=== PATIENT | male | born 1975 | race Caucasian/White ===

== ENCOUNTER 2020-01-01 14:06 | Outpatient (CLI) | payer OTHER, SELFPAY ==
--- NOTE | ~2020-01-01 | US_ITS ---
EXAMINATION: US thyroid DATE: 01/01/2020 14:31 INDICATION: Hypothyroidism TECHNIQUE: Multiple ultrasound images of the thyroid were obtained. COMPARISON: None. FINDINGS: The right thyroid lobe measures 5.1 x 2.7 x 1.5 cm. The left thyroid lobe measures 5.3 x 1.8 x 1.5 c m. No discrete nodules identified. There is normal echotexture, echogenicity and vascular flow throu ghout the thyroid gland. IMPRESSION: 1. Normal thyroid ultrasound. Reviewed, dictated and finalized at location A.
== END 2020-01-01 14:07 | disposition home or self-care (01) ==
PROVIDERS: PCP Family Medicine; Visit Provider Family Medicine
DX: E03.9 Hypothyroidism, unspecified (principal)
CPT/HCPCS: 76536

== ENCOUNTER 2020-01-05 00:39 | Outpatient (CLI) | payer OTHER, SELFPAY ==
[2020-01-05 19:30] LABS: SARS-CoV-2 RNA PCR Negative
== END 2020-01-05 00:40 | disposition home or self-care (01) ==
LOC: ANHCOVIDDT 00:39
PROVIDERS: PCP Family Medicine; Visit Provider Internal Medicine Gastroenterology
DX: Z01.812 Encounter for preprocedural laboratory examination (principal); Z20.828 Contact with and (suspected) exposure to other viral communicable diseases
CPT/HCPCS: 87635; C9803; U0003

== ENCOUNTER 2020-01-08 00:55 | Day surgery (SDC) | payer OTHER, SELFPAY ==
[2020-01-01 14:48] VITALS: BMI 29.0
[2020-01-08 08:43] VITALS: BP 119/70; PULSE 81; RESP 18; TEMP 36.7; O2SAT 99
[2020-01-08] MEDS: LACTATED RINGERS 1,000 ML 150 ML IV CONT (08:45)
--- NOTE | 2020-01-08 08:55 | WPDANESEPPF ---
Anes - Initial Pre Proc Eval Procedure: Operation Date: 01/08/20 09:45 Proposed Procedures p Esophagogastroduodenoscopy - Kali Gutierrez MD Date/Time: 01/08/20 08:55 Surgeon: Kali Gutierrez MD Pre Op Diagnosis: Dysphagia Patient Data Age: 44 Gender: M Height: 5 ft 10 in Weight: 91.7 kg Last Vital Signs Temp 98.1 F 01/08/20 08:43 Pulse 81 01/08/20 08:43 Resp 18 01/08/20 08:43 BP 119/70 01/08/20 08:43 Pulse Ox 99 01/08/20 08:43 Allergies Allergy/AdvReac Type Severity Reaction Status Date / Time morphine Allergy Severe Palpitation Verified 01/08/20 08:42 s codeine AdvReac Intermediate SEVERE Verified 01/08/20 08:42 NAUSEA AND VOMITING Home Medications Medication Instructions Recorded Confirmed Type fluticasone propionate 50 1 spray NASAL DAILY 06/04/19 01/01/20 History mcg/actuation nasal spray,suspension albuterol sulfate 90 mcg/actuation 1 inhalation INHALATION Q4H PRN 06/22/19 01/01/20 Rx aerosol inhaler #18 gm hydrochlorothiazide 25 mg tablet 25 mg PO DAILY #30 tablet 11/01/19 01/01/20 Rx lisinopril 20 mg tablet 20 mg PO DAILY #30 tablet 11/01/19 01/01/20 Rx metoprolol succinate 25 mg 25 mg PO DAILY #30 tablet 11/01/19 01/01/20 Rx tablet,extended release 24 hr nabumetone 500 mg tablet 500 mg PO DAILY 11/02/19 01/01/20 History testosterone cypionate 200 mg/mL 200 mg IM . every 2 weeks #1 ml 11/02/19 01/01/20 Rx intramuscular oil thyroid (pork) 15 mg tablet 15 mg PO DAILY #90 tablet 11/23/19 01/01/20 Rx diazepam 5 mg tablet 5 mg PO BID PRN #60 tablet 12/17/19 01/01/20 Rx nortriptyline 10 mg capsule 10 mg PO TID #90 cap 12/17/19 01/01/20 Rx tadalafil 20 mg tablet 20 mg PO DAILY PRN #30 tablet 12/17/19 01/01/20 Rx sertraline 100 mg PO BID 01/01/20 01/01/20 History Patient hx anesthesia problems: none Family hx anesthesia problems: none PMFSH Past Medical History Medical History (Updated 12/03/19 @ 12:04 by Kali Gutierrez MD) Allergies Anxiety Asthma Cervical vertebral fusion Depression Headache, migraine History of anal fissures Hypertension Surgical History Surgical History History of lumbar fusion Social History Social History Smoking status: Never smoker Second hand tobacco smoke exposure: No Alcohol intake: current Anes - Eval Final PreProcedure Day of Procedure 01/08/20 08:55 Patient weight: overweight Heart: regular rate and rhythm Lungs: clear to auscultation Airway: Mallampati scale class II Neurological: alert and oriented Last oral intake: >/= 8 hours ASA classification: II Emergent: no Anesthetic plan: proceed Anesthesia type and monitoring: general GIVS and standard monitoring Informed Consent: The patient's anesthetic plan and its attendant risks and benefits were discussed with the patient/family/POA. Questions were solicited and answers provided to the satisfaction of the patient/family/POA.
--- NOTE | 2020-01-08 09:34 | PM.HPGS ---
History of Present Illness History of Present Illness Consent: Risks, benefits, and alternatives have been discussed and questions answered. Patient agrees to proceed with procedure. Chief complaint: Dysphagia Narrative: Evelio Mario is a 44 year old male with gerd and dysphagia, he is not longer using ppi Review of Systems Constitutional: Constitutional: Denies headache(s) and Denies weakness Eyes: Eyes: Denies blurry vision ENT: Reports Normal hearing present, Denies headache(s) and Denies neck pain Cardiovascular: Cardiovascular: Denies chest pain and Denies dyspnea Respiratory: Respiratory: Denies dyspnea Gastrointestinal: Gastrointestinal: Reports no additional gastrointestinal complaints Genitourinary: Genitourinary: Denies dysuria Musculoskeletal: Musculoskeletal: Denies neck pain Integumentary/Breasts: Skin/Breast: Denies dry skin Neurologic: Reports Normal hearing present, Denies headache(s) and Denies weakness Psychiatric: Psychiatric: Denies anxiety Endocrine: Endocrine: Denies change in body appearance Hematologic/Lymphatic: Hematologic/Lymphatic: Denies easy bleeding Allergic/Immunologic: Allergic/Immunologic: Denies urticaria PMFSH Past Medical History Medical History (Updated 01/08/20 @ 09:35 by Kali Gutierrez MD) Allergies Anxiety Asthma Cervical vertebral fusion Depression Dysphagia GERD (gastroesophageal reflux disease) Headache, migraine History of anal fissures Hypertension Surgical History Surgical History History of lumbar fusion Social History Social History Smoking status: Never smoker Second hand tobacco smoke exposure: No Alcohol intake: current Meds Home Medications and Allergies Home Medications Medication Instructions Recorded Confirmed Type fluticasone propionate 50 1 spray NASAL DAILY 06/04/19 01/01/20 History mcg/actuation nasal spray,suspension albuterol sulfate 90 mcg/actuation 1 inhalation INHALATION Q4H PRN 06/22/19 01/01/20 Rx aerosol inhaler #18 gm hydrochlorothiazide 25 mg tablet 25 mg PO DAILY #30 tablet 11/01/19 01/01/20 Rx lisinopril 20 mg tablet 20 mg PO DAILY #30 tablet 11/01/19 01/01/20 Rx metoprolol succinate 25 mg 25 mg PO DAILY #30 tablet 11/01/19 01/01/20 Rx tablet,extended release 24 hr nabumetone 500 mg tablet 500 mg PO DAILY 11/02/19 01/01/20 History testosterone cypionate 200 mg/mL 200 mg IM . every 2 weeks #1 ml 11/02/19 01/01/20 Rx intramuscular oil thyroid (pork) 15 mg tablet 15 mg PO DAILY #90 tablet 11/23/19 01/01/20 Rx diazepam 5 mg tablet 5 mg PO BID PRN #60 tablet 12/17/19 01/01/20 Rx nortriptyline 10 mg capsule 10 mg PO TID #90 cap 12/17/19 01/01/20 Rx tadalafil 20 mg tablet 20 mg PO DAILY PRN #30 tablet 12/17/19 01/01/20 Rx sertraline 100 mg PO BID 01/01/20 01/01/20 History Allergies Allergy/AdvReac Type Severity Reaction Status Date / Time morphine Allergy Severe Palpitation Verified 01/08/20 08:42 s codeine AdvReac Intermediate SEVERE Verified 01/08/20 08:42 NAUSEA AND VOMITING Vital Signs Vital Signs - 24 hr 01/08/20 08:43 Temperature 98.1 F Pulse Rate 81 Respiratory Rate 18 Blood Pressure 119/70 Pulse Oximetry 99 Exam Const: General: comfortable and no acute distress HENMT: General nose exam: Normal nares present Eyes: General: appearance normal, both eyes and all related structures Neck: Neck: no JVD Resp: Auscultation: clear to auscultation bilaterally Cardio: Rate: regular rate Rhythm: regular rhythm GI: Inspection: non-distended GI Palp: Yes Soft to palpation Skin: General skin exam: normal color Neuro: General: gait normal Speech: normal speech Extrem: General: normal to inspection Psych: Mental Status: mental status grossly normal Assessment and Plan Assessment and plan (1) GERD (gastroesophageal re
[2020-01-08 09:47] VITALS: BP 101/55; PULSE 73; RESP 18; O2SAT 97
[2020-01-08 09:57] VITALS: BP 106/63; PULSE 71; RESP 18; O2SAT 97
[2020-01-08 10:07] VITALS: BP 108/74; PULSE 67; RESP 18; O2SAT 98
== END 2020-01-08 10:17 | disposition home or self-care (01) ==
PROVIDERS: PCP Family Medicine; Visit Provider Internal Medicine Gastroenterology
PROC: 0DJ08ZZ Inspection of Upper Intestinal Tract, Via Natural or Artificial Opening Endoscopic (ICD-10-PCS; CPT 43235; principal; 2020-01-08 09:45)
DX: K21.0 Gastro-esophageal reflux disease with esophagitis (principal); K29.70 Gastritis, unspecified, without bleeding; F41.9 Anxiety disorder, unspecified; J45.909 Unspecified asthma, uncomplicated; I10 Essential (primary) hypertension; F32.9 Major depressive disorder, single episode, unspecified
CPT/HCPCS: 43239; 87081; 88305; J2704; J7120

== ENCOUNTER 2020-01-29 00:27 | Outpatient (CLI) | payer OTHER, SELFPAY ==
[2020-01-29 17:26] LABS: SARS-CoV-2 RNA PCR Negative
== END 2020-01-29 00:28 | disposition home or self-care (01) ==
LOC: ANHCOVIDDT 00:27
PROVIDERS: PCP Family Medicine
DX: Z01.818 Encounter for other preprocedural examination (principal); Z11.59 Encounter for screening for other viral diseases
CPT/HCPCS: 87635; C9803; U0003

== ENCOUNTER 2020-02-01 09:12 | Outpatient (CLI) | payer OTHER, SELFPAY ==
[2020-01-25 14:57] VITALS: BMI 28.7
[2020-02-01] VITALS (7 sets, daily range): BP systolic 101–129; BP diastolic 53–79; PULSE 58–66; RESP 12–19; O2SAT 96–100
--- NOTE | ~2020-02-01 | CT_ITS ---
EXAMINATION: CT lumbar spine w con EXAM DATE: 02/01/2020 11:45 INDICATION: Lumbar radiculopathy. Lumbar surgery. TECHNIQUE: Spiral CT of the lumbar spine was performed following intrathecal injection of 10 mL Omnip aque 300 solution. Axial, coronal and sagittal images were reviewed. The dose-length product (DLP) for this examination was 1244.20 mGy-cm. The exposure was tailored according to patient size (auto mA exposure control), and iterative reconstruction (ASIR) was used as additional dose reduction techn ique. Comparison is made to prior examination from 09/03/2015. FINDINGS: Small contrast from the L5-S1 injection site is subdural in location. Adequate intrathecal opacification given that contrast was distributed for both cervical and lumbar myelogram. Posterior a nd interbody fusion L3-S1, L5 laminectomies, L4 and L3 laminotomies. There is 3 to 4 mm retrolisthesi s L2 on L3 with mild to moderate loss of the disc height at this level. There are no acute fractures identified. Paraspinal soft tissue is unremarkable. Level by level evaluation: T12-L1: Disc does not extend beyond the endplate margin. Facet arthropathy: Mild. Neural foraminal stenosis: No stenosis. Central canal stenosis: No stenosis. L1-L2: There is a mild diffuse disc bulge. Facet arthropathy: Mild to moderate right, mild left. Neural foraminal stenosis: Mild bilateral. Central canal stenosis: Mild. L2-L3: There is a moderate diffuse disc bulge. Facet arthropathy: Severe. Neural foraminal stenosis: Mild to moderate bilateral. Central canal stenosis: Moderate, nerve root crowding. L3-L4: This level is fused. Facet arthropathy: Fused. Neural foraminal stenosis: No stenosis. Central canal stenosis: No stenosis. L4-L5: This level is fused. Facet arthropathy: None. Neural foraminal stenosis: No stenosis. Central canal stenosis: No stenosis. L5-S1: This level is fused. Facet arthropathy: Mild right. Neural foraminal stenosis: No stenosis. Central canal stenosis: No stenosis. IMPRESSION: 1. L3-4 grade 1 retrolisthesis and moderate central canal stenosis. 2. Surgical changes L3-S1. Reviewed, dictated and finalized at location A.
--- NOTE | ~2020-02-01 | XR_ITS ---
EXAMINATION: XR_MY2+_CR EXAM DATE: 02/01/2020 11:59 INDICATION: Cervical radiculopathy. Lumbar radiculopathy. TECHNIQUE: Informed consent was obtained from the patient for doing this procedure. I discussed mack efits and risks including bleeding, infection, backache, headache and seizure. Alternatives also disc ussed. The DAP for this procedure was 1.6 Gycm2. Time out procedure was performed. Preflight Inspector radiograph was obtained. An entry site was chosen at the L5 -S1 level. A right paracentral approach was used. Standard sterile prep was done with Betadine. En try site was infiltrated with 3 cc 1% lidocaine. A 3.5 22G spinal needle was then inserted into the spinal canal. 10 mL of Omnipaque 300 solution were then injected into the thecal sac. Limited images of cervical and lumbar spine were obtained on fluoroscopy unit. The patient was then t ransferred to CT scan for spiral CT of the lumbar spine. Following this, patient was placed in post operative area for 2 hours observation prior to being discharged. There were no immediate complicatio ns. About half an hour after the procedure patient did complain of severe headache. Reportedly also h as history of severe headaches. FINDINGS: There are 12 thoracic rib-bearing vertebral bodies. There is no myelographic block. Cervical spine: Contrast confirmed to reach this region. Demonstrates intact fusion with anterior ivet te C3-5. Lumbar spine: demonstrates posterior pedicular screws L3-S1 without hardware fracture. Also interbody device markers at these levels. On the lateral projection there is moderate central canal stenosis a t the L2-3 level with nerve root crowding, and 3-4 mm of retrolisthesis. IMPRESSION: 1. Intrathecal contrast confirmed for subsequent CT. 2. Moderate central canal stenosis L3-4 without myelographic block. 3. Cervical and lumbar fusion hardware. Reviewed, dictated and finalized at location A.
--- NOTE | ~2020-02-01 | CT_ITS ---
EXAMINATION: CT cervical spine w con EXAM DATE: 02/01/2020 11:45 INDICATION: Cervical radiculopathy. TECHNIQUE: Spiral CT of the cervical spine was performed following intrathecal injection of 10 mL int rathecal Omnipaque 300 solution. Axial images were reviewed. Coronal and sagittal reformatted image s were also reviewed. The dose-length product (DLP) for this examination was 475.15 mGy-cm. The expo sure was tailored according to patient size (auto mA exposure control), and iterative reconstruction (ASIR) was used as additional dose reduction technique. Correlation is made to cervical spine MRI exa mination 06/08/2013. FINDINGS: Adequately opacified cervical spinal canal. Osseous interbody fusion C3-6. There is anterio r fusion plate and supporting screws C3-5. Solid bone bridging and no evidence of hardware fracture. There is moderate disc disease C6-7. The vertebral bodies are aligned in the AP dimension. There are no acute fractures identified. Cervicomedullary junction is normal in appearance. Level by level evaluation: C2-C3: Disc does not extend beyond the endplate margin. Uncovertebral joint arthropathy: Minimal right. Facet joint arthropathy: Minimal bilateral. Neural foraminal stenosis: No stenosis. Central canal stenosis: No stenosis. C3-C4: This level is fused. Uncovertebral joint arthropathy: Mild to moderate right, mild left. Facet joint arthropathy: Mild bilateral. Neural foraminal stenosis: Mild right. Central canal stenosis: No stenosis. C4-C5: This level is fused. Uncovertebral joint arthropathy: Mild to moderate bilateral. Facet joint arthropathy: Mild to moderate bilateral. Neural foraminal stenosis: Mild right. Central canal stenosis: No stenosis. C5-C6: This level is fused. Uncovertebral joint arthropathy: Mild left. Facet joint arthropathy: Mild bilateral. Neural foraminal stenosis: No stenosis. Central canal stenosis: No stenosis. C6-C7: There is a mild diffuse disc bulge. Uncovertebral joint arthropathy: Moderate to severe right, mild to moderate left. Facet joint arthropathy: Moderate bilateral. Neural foraminal stenosis: Moderate right, mild left. Central canal stenosis: No stenosis. C7-T1: Disc does not extend beyond the endplate margin. Uncovertebral joint arthropathy: Mild left. Facet joint arthropathy: Moderate left, mild right. Neural foraminal stenosis: No stenosis. Central canal stenosis: No stenosis. IMPRESSION: 1. Intact fusion C3-6. 2. C6-7 moderate right neural foraminal stenosis, the most narrowed level. 3. Lesser spondylosis detailed above. Reviewed, dictated and finalized at location A.
[2020-02-01] MEDS: ACETAMINOPHEN 500 MG TABLET 1000 MG PO (12:48)
--- NOTE | 2020-02-01 14:45 | SUR.PHASEII ---
1145 pt complains severe headache. given ice bag for forehead, called dr taylor about headache. [address] taylor about continued headache, orders received. tylenol given. 1355 dr talyor here and talked to pt ,pt given disc about procedure.
== END 2020-02-01 14:05 | disposition home or self-care (01) ==
PROVIDERS: Radiology Diagnostic Radiology; PCP Family Medicine
DX: M54.16 Radiculopathy, lumbar region (principal); M54.12 Radiculopathy, cervical region; Z98.1 Arthrodesis status
CPT/HCPCS: 62305; 72126; 72132; A9270

== ENCOUNTER 2020-06-02 13:26 | Outpatient (CLI) | payer OTHER, SELFPAY ==
[2020-06-03 18:38] LABS: SARS-CoV-2 RNA PCR Negative
== END 2020-06-02 13:27 | disposition home or self-care (01) ==
PROVIDERS: PCP Family Medicine; Visit Provider Family Medicine
DX: Z01.818 Encounter for other preprocedural examination (principal); Z20.822 Contact with and (suspected) exposure to COVID-19
CPT/HCPCS: C9803; U0003; U0005

== ENCOUNTER 2020-06-03 15:23 | Outpatient (CLI) | payer OTHER, SELFPAY ==
--- NOTE | ~2020-06-03 | XR_ITS ---
EXAMINATION: XR chest 2V DATE: 06/03/2020 15:45 INDICATION: Hypertension. Preop. TECHNIQUE: Frontal and lateral views of the chest were obtained. COMPARISON: Chest 2 views 05/22/2009 FINDINGS: The chest demonstrates clear lungs without pneumonia, pleural effusion, or pneumothorax. Th e heart size is normal. There is an old healed fracture of right fourth rib. IMPRESSION: 1. No acute cardiopulmonary disease. Reviewed, dictated and finalized at location B. [employer]ING [employer]IE[employer]INE[employer]
== END 2020-06-03 15:24 | disposition home or self-care (01) ==
LOC: ANHBWCLAB 15:26 → ANHBWCIMG 15:40
PROVIDERS: PCP Family Medicine; Visit Provider Family Medicine
DX: Z01.818 Encounter for other preprocedural examination (principal)
CPT/HCPCS: 71046

== ENCOUNTER 2020-06-19 00:28 | Emergency (ER) | payer OTHER, SELFPAY ==
[2020-06-19 01:03] VITALS: BP 149/96; PULSE 108; RESP 20; TEMP 37.4; O2SAT 100
--- NOTE | 2020-06-19 01:06 | ED.GENADULT ---
HPI - General Adult General Chief complaint: Extremity Problem,Nontraumatic Stated complaint: Numbness in right hand. Source: patient Mode of arrival: ambulatory Limitations: no limitations History of Present Illness HPI narrative: Evelio is a 44M with a PMH of GERD, hypothyroidism, hypogonadism, and surgeries on his cervical and lumbar spine that presented with weakness in his right hand and paresthesias in it. He had a cervical fusion years ago and has had some numbness in his finger tips bilaterally. However, since his lumbar fusion surgery on 06/05 he has had worsening right hand weakness, pain, cold sensation and it is waking him up with cramping at night. No trauma to the hand. However, since his lumbar surgery he is having to use his hands and wrists a lot more to get up. He has a history of bilateral carpal tunnel many years ago. Related Data Home Medications Medication Instructions Recorded Confirmed fluticasone propionate 50 1 spray NASAL DAILY 06/04/19 06/19/20 mcg/actuation nasal spray,suspension cyanocobalamin (vitamin B-12) 1,000 mcg PO WEEKLY 01/25/20 06/19/20 [Vitamin B-12] sildenafil [Viagra] 100 mg PO DAILY PRN 06/19/20 06/19/20 Allergies Allergy/AdvReac Type Severity Reaction Status Date / Time morphine Allergy Severe Palpitation Verified 06/03/20 14:20 s codeine AdvReac Intermediate SEVERE Verified 06/03/20 14:20 NAUSEA AND VOMITING Review of Systems Constitutional: Constitutional: Denies chills and Denies fever(s) Eyes: Eyes: Reports no additional eye complaints ENT: Reports system reviewed and no additional complaints, except as documented Cardiovascular: Cardiovascular: Reports no additional cardiovascular complaints Respiratory: Respiratory: Reports no additional respiratory complaints Gastrointestinal: Gastrointestinal: Reports no additional gastrointestinal complaints Genitourinary: Genitourinary: Reports no additional male genitourinary complaints Musculoskeletal: Musculoskeletal: Reports as per HPI Integumentary/Breasts: Skin/Breast: Reports system reviewed and no additional complaints, except as docu Neurologic: Reports as per HPI Psychiatric: Psychiatric: Reports no additional psychiatric complaints Endocrine: Endocrine: Reports no additional endocrine complaints Hematologic/Lymphatic: Hematologic/Lymphatic: Reports no additional hematologic/lymphatic complaints Allergic/Immunologic: Allergic/Immunologic: Reports no additional allergic/immunologic complaints [facility] Past Medical History Medical History Allergies Anxiety Asthma Cervical vertebral fusion Depression Dysphagia GERD (gastroesophageal reflux disease) Headache, migraine History of anal fissures Hypertension Surgical History Surgical History History of lumbar fusion Family History Family History Mother Depression Family history of migraine headaches Asthma Family history of chronic obstructive pulmonary disease Grandparent Cerebrovascular accident Grandparent Lung disease Grandparent Dementia Alzheimer disease Grandparent Dementia Other Hypertension Social History Social History Smoking status: Never smoker Second hand tobacco smoke exposure: No Alcohol intake: current Drinks per week: 2 Substance use: never Exam Const: General: no acute distress and alert Orientation/consciousness: patient oriented x3 Limitations: No altered mental status HENMT: Head: normal to inspection Other: atraumatic Eyes: Conjunctivae: conjunctivae normal Pupils: Equal, round and reactive pupils present Neck: Neck: normal visual inspection Chest: Chest palpation & inspection: normal inspection of the chest Resp: Effort & Inspection: nor
[2020-06-19 01:11] VITALS: BP 142/86; PULSE 98; RESP 20; TEMP 37.2; O2SAT 100
== END 2020-06-19 01:17 | disposition home or self-care (01) ==
PROVIDERS: Emergency Provider Family Medicine; PCP Family Medicine
DX: G56.01 Carpal tunnel syndrome, right upper limb (principal)
CPT/HCPCS: 99283

== ENCOUNTER 2020-07-14 11:13 | Outpatient (CLI) | payer OTHER, SELFPAY ==
--- NOTE | ~2020-07-14 | XR_ITS ---
EXAMINATION: XR chest 2V DATE: 07/14/2020 11:22 INDICATION: Shortness of breath. Cough. Neuralgic amyotrophy. TECHNIQUE: Frontal and lateral views of the chest were obtained. COMPARISON: Chest 2 views 06/03/2020 FINDINGS: The chest demonstrates clear lungs without pneumonia, pleural effusion, or pneumothorax. Th e heart size is normal. There are changes of anterior and posterior fusion procedures in lumbar spine . IMPRESSION: 1. No acute cardiopulmonary disease. Reviewed, dictated and finalized at location A. 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
== END 2020-07-14 11:14 | disposition home or self-care (01) ==
LOC: ANHBWCIMG 11:14
PROVIDERS: PCP Family Medicine; Visit Provider Family Medicine
DX: G54.5 Neuralgic amyotrophy (principal); R13.10 Dysphagia, unspecified
CPT/HCPCS: 71046

== ENCOUNTER 2020-10-30 09:27 | Outpatient (CLI) | payer OTHER, SELFPAY ==
--- NOTE | ~2020-10-30 | XR_ITS ---
XR cervical spine 4-5V DATE: 10/30/2020 14:31 INDICATION: Neuralgic amyotrophy TECHNIQUE: AP, open-mouth, lateral views. Flexion and extension lateral views. COMPARISON: 02/01/2020 CT cervical spine FINDINGS: Status post anterior fusion at C3-6. Severe degenerative disc disease at C6-7. There is straightening of cervical spine. There is no instability on flexion or extension. C1 and C2 are normally aligned and the odontoid process is intact. No fracture or dislocation or lock ed facet or prevertebral soft tissue swelling. IMPRESSION: Status post anterior cervical spine surgical fusion at C3-6 Severe degenerative disc disease at C6-7 Reviewed, dictated and finalized at location A.
== END 2020-10-30 09:28 | disposition home or self-care (01) ==
PROVIDERS: PCP Family Medicine
DX: G54.5 Neuralgic amyotrophy (principal); Z98.1 Arthrodesis status
CPT/HCPCS: 72050; 97162

== ENCOUNTER 2020-11-12 12:30 | Outpatient (RCR) | payer OTHER, SELFPAY ==
--- NOTE | 2020-10-30 10:24 | PTOPEVAL ---
PHYSICAL THERAPY EVALUATION AND PLAN OF CARE Thank you for referring Evelio Mario to [facility].? The patient is scheduled to be seen for therapy? 2x/week for 4-8 weeks. Please review, sign, date and return this plan of care LUCIO. I agree with and certify that the following plan of care is medically necessary. Referring Physician Date Attending Provider: Grant Contreras Evaluation Neurological History Hx Migraine Yes Hx Neurologic Surgery Yes: FACIAL NERVE SURGERY Hx Other Neurological Disorders Yes: fell on head 2014 accident now has muscle spasms and shooting pain Cardiovascular History Hx Hypertension Yes Respiratory History Hx Asthma Yes: inhaler Gastrointestinal History Hx Esophageal Disorders Yes: dysphagia Hx Gastroesophageal Reflux Disease Yes: otc as needed Genitourinary History Hx Genitourinary Disorders No Significant History Musculoskeletal History Hx Orthopedic Surgery Yes: REPAIR L SHOULDER LABRUM TEAR Hx Spinal Surgery Yes: cervical fusion x2 with hardware;lumbar fusion x2 with hardware Hx Other Musculoskeletal Disorders Yes: POOR BALANCE Psychosocial History Hx Anxiety Yes Hx Depression Yes Pain History Has Past Pain Affected Your Daily Life Yes: NECK/BACK/HEAD Anesthesia History Hx Anesthesia Reactions No Significant History Other History Hx Implanted Device Yes: cervical and lumbar fusions Diagnosis cervical pain, arm pain Onset 2014 Subjective Information Evelio is here today with c/o Query Text:As Reported By Patient/ cervical pain with arm pain Family and numbness. He also had lumbar fusion surgery of L1-2 in May 2020 and he states that his legs are doing much better. He does have back pain and spasms. He is here to increase core strength and to treat the cervical pain/arm pain. Arm pain: states that he is right handed and the more he uses the arm, the worse it gets. States that he does not sleep longer than an hour or two at a time. He also gets migraines. Self Report Pain Assessment Spine, Cervical Reported Pain Level 4 Pain Description Ac
--- NOTE | 2020-11-05 09:31 | PCPTNOTE ---
Patient called & cancelled scheduled appointment this date due to having a migraine.
--- NOTE | 2020-11-10 09:28 | PCPTNOTE ---
Patient did not show up for scheduled appointment this date. Called and spoke with Pt. He thought his appointment was at 12:30pm due to print out being small and times being close together. Pt apologized for mishap. Reminded Pt of his next appointment on Sunday 11/12 @ 12:30.
--- NOTE | 2020-11-18 10:26 | PCPTNOTE ---
Patient did not show up for scheduled appointment this date. Called and left voicemail reminding Pt of missed appointment and upcoming appointment on , 11/20/2020 @ 10:00am. This is Pt's second N/S.
--- NOTE | 2020-11-20 10:27 | PCPTNOTE ---
Patient did not show up for scheduled appointment this date. Called and left voicemail about missed appointment and reminded Pt of upcoming appointment. This is Pt's third N/S. PT notified.
--- NOTE | 2020-11-24 09:47 | PCPTNOTE ---
Patient called & cancelled scheduled appointment and all future appointments per MD due to running another test and then possibly having surgery, PT notified.
--- NOTE | 2020-11-24 11:47 | PCPTNOTE ---
PHYSICAL THERAPY DISCHARGE NOTE Attending Provider: Grant Contreras Patient:Evelio Mario Date of :1975 Patient called and cancelled remaining appointments per MD instructions. He will be discharged at this time. Thank you for referring this patient to [facility]. Please review, sign, date and return this discharge summary LUCIO. I have been updated about the patient's current status and I agree with discharge from the above service at this time. Referring Physician Date
== END 2021-01-14 12:56 | disposition home or self-care (01) ==
LOC: ANHPT 12:30
PROVIDERS: PCP Family Medicine
DX: M79.602 Pain in left arm (principal); M79.601 Pain in right arm; M54.12 Radiculopathy, cervical region; Z98.890 Other specified postprocedural states
CPT/HCPCS: 97110; 97140; 97162

== ENCOUNTER 2020-12-31 15:14 | Outpatient (CLI) | payer OTHER, SELFPAY ==
--- NOTE | ~2020-12-31 | MR_ITS ---
EXAMINATION: MR cervical spine wo con DATE: 12/31/2020 16:19 INDICATION: Cervical radiculopathy. TECHNIQUE: Magnetic resonance imaging (MRI) of the cervical spine was performed without intravenous c ontrast. Sequences included sagittal T2-weighted FSE, sagittal T2-weighted FS FSE, sagittal T1-weight ed FSE, axial MERGE, and axial T2-weighted FSE. COMPARISON: Cervical spine MRI 06/08/2019 FINDINGS: There is 5 degrees dextrocurvature of cervical spine. There is 2 mm anterolisthesis of C7 o n T1. There are changes of anterior fusion procedure from C3 to C6 with healed interbody bone graft. There is an anterior plate with screws from C3 to C5. There is moderately decreased disc height at C6 -C7 with endplate remodeling. The spinal cord signal intensity is normal. The following disc levels a re specifically discussed: C2-C3: The disc does not extend beyond the endplate margin. There is mild right uncovertebral joint o steoarthritis. There is mild bilateral facet joint osteoarthritis. There is no neural foraminal steno sis. There is no central canal stenosis. C3-C4: There is no uncovertebral joint hypertrophy. There is mild left facet joint osteoarthritis. Th ere is no neural foraminal stenosis. There is no central canal stenosis. C4-C5: There is no uncovertebral joint hypertrophy. There is mild bilateral facet joint osteoarthriti s. There is no neural foraminal stenosis. There is no central canal stenosis. C5-C6: There is no uncovertebral joint osteoarthritis. There is no facet joint osteoarthritis. There is no neural foraminal stenosis. There is no central canal stenosis. C6-C7: The disc is bulging. There is severe right and moderate left uncovertebral joint osteoarthriti s. There is severe bilateral facet joint osteoarthritis. There is moderate right and mild left neural foraminal stenosis. There is mild central canal stenosis. C7-T1: The disc does not extend beyond the endplate margin. There is no uncovertebral joint osteoarth ritis. There is severe bilateral facet joint osteoarthritis. There is mild bilateral neural foraminal stenosis. There is no central canal stenosis. IMPRESSION: 1. Moderate cervical spondylosis, stable from 06/08/2019. 2. Anterior fusion procedure from C3 to C6. Reviewed, dictated and finalized at location B.
--- NOTE | ~2020-12-31 | CT_ITS ---
EXAMINATION: CT lumbar spine wo con DATE: 12/31/2020 15:42 INDICATION: Lumbar radiculopathy. TECHNIQUE: Computed tomography (CT) of the lumbar spine was performed without intravenous contrast. A utomated exposure control and iterative reconstruction technique were employed. The dose-length produ ct was 1062.99 mGy-cm. COMPARISON: Lumbar spine CT 02/01/2020 FINDINGS: There is 3 degrees levocurvature of lumbar spine. There are changes of anterior and posteri or fusion procedures from L2 to S1 with interbody devices and pedicle screws. There is bridging inter body bone from L3 to S1, but not at L2-L3. There are bridging bone in the posterior elements from L3 to S1, but not at L2-L3. There is mildly decreased disc height at T12-L1 and L1-L2. The following dis c levels are specifically discussed: L1-L2: The disc is bulging. There is mild bilateral facet joint osteoarthritis. There is mild bilater al neural foraminal stenosis. There is mild central canal stenosis. L2-L3: There is mild left facet joint hypertrophy. There is mild left neural foraminal stenosis. Ther e is mild right neural foraminal stenosis with posterior decompression from resection of the right fa cet joint. There is mild central canal stenosis with posterior decompression. L3-L4: There is mild bilateral facet joint hypertrophy. There is mild left neural foraminal stenosis. There is no central canal stenosis. L4-L5: There is mild bilateral facet joint hypertrophy. There is mild left neural foraminal stenosis. There is no central canal stenosis. L5-S1: There is moderate bilateral facet joint hypertrophy. There is mild bilateral neural foraminal stenosis. There is mild central canal stenosis with posterior decompression. IMPRESSION: 1. Mild lumbar spondylosis. 2. Anterior and posterior fusion procedures at L2-L3, new from 02/01/2020. 3. Stable changes of anterior and posterior fusion procedures from L3 to S1. Reviewed, dictated and finalized at location B.
== END 2020-12-31 15:15 | disposition home or self-care (01) ==
DX: M54.16 Radiculopathy, lumbar region (principal); M54.12 Radiculopathy, cervical region; Z98.890 Other specified postprocedural states; M47.812 Spondylosis without myelopathy or radiculopathy, cervical region; Z98.1 Arthrodesis status; M47.816 Spondylosis without myelopathy or radiculopathy, lumbar region
CPT/HCPCS: 72131; 72141

== ENCOUNTER 2021-02-02 12:13 | Outpatient (CLI) | payer OTHER, SELFPAY ==
[2021-02-02 20:19] LABS: Free T4 Free Thyroxine 0.66 ng/mL (0.78-2.19); Vitamin D 25 Hydroxy 39.6 ng/mL
[2021-02-06 11:19] LABS: T3 Reverse 11 ng/dL (8-25)
== END 2021-02-02 12:14 | disposition home or self-care (01) ==
LOC: ANHBWCLAB 12:14
PROVIDERS: Family Medicine; PCP Family Medicine; Visit Provider Family Medicine
DX: R79.89 Other specified abnormal findings of blood chemistry (principal); R89.9 Unspecified abnormal finding in specimens from other organs, systems and tissues; E29.1 Testicular hypofunction; E03.9 Hypothyroidism, unspecified; Z51.81 Encounter for therapeutic drug level monitoring; Z79.899 Other long term (current) drug therapy
CPT/HCPCS: 36415; 82306; 84439; 84482

== ENCOUNTER 2021-02-04 08:34 | Outpatient (CLI) | payer OTHER, SELFPAY ==
[2021-02-04 19:33] LABS: Hematocrit 43.2 % (42.0-52.0); Hemoglobin 13.5 g/dL (14.0-18.0); Mean Corpuscular HGB Conc 31.3 g/dl (32-36); Mean Corpuscular Hemoglobin 26.4 pg (26-34); Mean Corpuscular Volume 84.5 fl (80-100); Mean Platelet Volume 10.5 fl (7.4-10.4); Platelet Count Result 199 k/mm3 (150-375); Red Blood Count 5.11 M/mm3 (4.6-6.20); Red Cell Distribution Width 13.9 % (11.5-14.5); White Blood Count 5.8 K/mm3 (4.5-10.0)
[2021-02-04 19:44] LABS: Alanine Aminotransferase 9 U/L (4-50); Albumin Level 4.2 g/dL (3.5-5.1); Alkaline Phosphatase 49 U/L (38-126); Anion Gap 7 mmol/L (8-16); Aspartate Amino Transferase 22 U/L (17-59); Bilirubin,Total 0.4 mg/dL (0.2-1.3); Blood Urea Nitrogen 17 mg/dL (9-20); Carbon Dioxide 26 mmol/L (22-30); Chloride 109 mmol/L (98-107); Estimated Glomerular Filt Rate > 60; Glucose 113 mg/dL (65-110); Potassium 4.5 mmol/L (3.4-5.0); Sodium 142 mmol/L (137-145)
[2021-02-08 18:52] LABS: Testosterone Free 97.2 pg/mL (35.0-155.0); Testosterone Total 450 ng/dL (250-1100)
== END 2021-02-04 08:35 | disposition home or self-care (01) ==
LOC: ANHBWCLAB 08:35
PROVIDERS: PCP Family Medicine; Visit Provider Family Medicine
DX: F32.9 Major depressive disorder, single episode, unspecified (principal); M62.81 Muscle weakness (generalized); E03.9 Hypothyroidism, unspecified; E29.1 Testicular hypofunction; R79.89 Other specified abnormal findings of blood chemistry
CPT/HCPCS: 36415; 80053; 84402; 84403; 84443; 85027; 86038

== ENCOUNTER 2021-03-04 10:16 | Outpatient (CLI) | payer OTHER, SELFPAY ==
--- NOTE | ~2021-03-04 | CT_ITS ---
EXAMINATION: CT cervical spine wo con DATE: 03/04/2021 10:29 INDICATION: Cervical radiculopathy. TECHNIQUE: Computed tomography (CT) of the cervical spine was performed without intravenous contrast. Automated exposure control and iterative reconstruction technique were employed. The dose-length pro duct was 434.94 mGy-cm. COMPARISON: CT cervical spine 02/01/2020, MRI 12/31/2020 FINDINGS: There is 5 degrees dextrocurvature of cervicothoracic spine. There are changes of anterior fusion procedure from C3 through C6 with discectomies and healed interbody bone graft. There is an an terior plate and screws from C3 to C5. Vertebral body heights are normal. There is severely decreased disc height at C6-C7 with endplate remodeling. The following disc levels are specifically discussed: C2-C3: There is mild bilateral uncovertebral joint osteoarthritis. There is mild bilateral facet join t osteoarthritis. There is no neural foraminal stenosis. There is no central canal stenosis. C3-C4: There is mild bilateral uncovertebral joint hypertrophy. There is moderate right and severe le ft facet joint osteoarthritis. There is mild bilateral neural foraminal stenosis. There is no central canal stenosis. C4-C5: There is mild right uncovertebral joint hypertrophy. There is moderate right and mild left fac et joint osteoarthritis. There is mild right neural foraminal stenosis. There is no central canal danielle nosis. C5-C6: There is no uncovertebral joint osteoarthritis. There is no facet joint osteoarthritis. A scre w extends into the left neural foramen. There is mild left neural foraminal stenosis. There is no melissa tral canal stenosis. C6-C7: There is severe bilateral uncovertebral joint osteoarthritis. There is moderate right and daisy re left facet joint osteoarthritis. There is mild bilateral neural foraminal stenosis. There is mild central canal stenosis. C7-T1: There is no uncovertebral joint osteoarthritis. There is severe bilateral facet joint osteoart hritis. There is mild left neural foraminal stenosis. There is no central canal stenosis. IMPRESSION: 1. Severe spondylosis at C6-C7 and mild spondylosis at other levels, stable from 02/01/2020. 2. Anterior fusion procedure from C3 to C6. Reviewed, dictated and finalized at location A. IMPRESSION: 1. Severe spondylosis at C6-C7 and mild spondylosis at other levels, stable fro m 02/01/2020. 2. Anterior fusion procedure from C3 to C6.
== END 2021-03-04 10:17 | disposition home or self-care (01) ==
LOC: ANHIMG 10:17
PROVIDERS: PCP Family Medicine
DX: M47.812 Spondylosis without myelopathy or radiculopathy, cervical region (principal); Z98.1 Arthrodesis status
CPT/HCPCS: 72125

== ENCOUNTER 2021-03-09 09:16 | Outpatient (CLI) | payer OTHER, SELFPAY ==
[2021-03-09 18:34] LABS: Basophils Percent Auto 0.5 % (0.2-1.2); Eosinophils Absolute Auto 0.1 K/mm3 (0-0.3); Eosinophils Percent Auto 1.8 % (0-4.4); Hematocrit 42.9 % (42.0-52.0); Hemoglobin 13.6 g/dL (14.0-18.0); Immature Granulocyte Absolute 0.03 K/mm3 (0.00-0.031); Immature Granulocyte Percent A 0.4 % (0-0.5); Lymphocytes Absolute Auto 2.85 K/mm3 (0.9-3.2); Mean Corpuscular HGB Conc 31.7 g/dl (32-36); Mean Corpuscular Hemoglobin 26.3 pg (26-34); Mean Corpuscular Volume 82.8 fl (80-100); Mean Platelet Volume 10.2 fl (7.4-10.4); Monocytes Absolute Auto 0.5 K/mm3 (0.1-0.6); Monocytes Percent Auto 6.8 % (2.6-8.5); Neutrophils Absolute Auto 3.8 K/mm3 (1.3-6.7); Neutrophils Percent Auto 51.5 % (45.5-73.1); Platelet Count Result 231 k/mm3 (150-375); Red Blood Count 5.18 M/mm3 (4.6-6.20); White Blood Count 7.3 K/mm3 (4.5-10.0)
[2021-03-09 18:58] LABS: CRP < 0.5 mg/dL (<1.0)
[2021-03-09 19:17] LABS: Erythrocyte Sedimentation Rate 3 mm/hr (0-20); Free T4 Free Thyroxine 0.85 ng/mL (0.78-2.19)
[2021-03-09 19:18] LABS: Hemoglobin A1C 5.6 % (<5.7)
[2021-03-09 19:24] LABS: Prostate Specific Antigen 0.4 ng/mL (< OR = 4.0)
[2021-03-12 05:33] LABS: Triiodothyronine T3 Free 3.6 pg/mL (2.3-4.2)
== END 2021-03-09 09:17 | disposition home or self-care (01) ==
LOC: ANHBWCLAB 09:17
PROVIDERS: PCP Family Medicine; Visit Provider Family Medicine
DX: D64.9 Anemia, unspecified (principal); E03.9 Hypothyroidism, unspecified; M25.50 Pain in unspecified joint; R73.09 Other abnormal glucose
CPT/HCPCS: 36415; 83036; 84153; 84439; 84443; 84481; 85025; 85652; 86140; G0103

== ENCOUNTER 2021-04-20 08:53 | Outpatient (CLI) | payer OTHER, SELFPAY ==
[2021-04-20 20:26] LABS: Iron 29 ug/dL (49-181)
[2021-04-20 20:31] LABS: INR 0.9; Prothrombin Time 12.4 Seconds (11.1-14.7)
[2021-04-20 20:36] LABS: Percent Iron Saturation 6 % (20-50)
== END 2021-04-20 08:54 | disposition home or self-care (01) ==
LOC: ANHBWCLAB 08:55
PROVIDERS: PCP Family Medicine; Visit Provider Family Medicine
DX: D64.9 Anemia, unspecified (principal)
CPT/HCPCS: 36415; 83540; 83550; 85610

== ENCOUNTER 2021-05-18 15:27 | Outpatient (CLI) | payer OTHER, SELFPAY ==
--- NOTE | ~2021-05-18 | XR_ITS ---
EXAMINATION: XR chest 2V EXAM DATE: 05/18/2021 15:34 INDICATION: Cough, Congestion X 10 Days, COVID Neg, Hx Of Asthma . TECHNIQUE: Frontal and lateral projections of the chest obtained and reviewed. Comparison is made to prior examination from 07/15/2019. FINDINGS: The lungs are clear. There are no pleural effusions. The cardiomediastinal silhouette is within normal limits. There is no pneumothorax suspected. Old right 3rd rib fracture. Cervical fus ion hardware. IMPRESSION: No acute cardiopulmonary findings. Reviewed, dictated and finalized at location A. 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
[2021-05-18 19:47] LABS: Hematocrit 47.8 % (42.0-52.0); Hemoglobin 15.4 g/dL (14.0-18.0); Mean Corpuscular HGB Conc 32.2 g/dl (32-36); Mean Corpuscular Hemoglobin 25.7 pg (26-34); Mean Corpuscular Volume 79.8 fl (80-100); Mean Platelet Volume 9.4 fl (7.4-10.4); Platelet Count Result 233 k/mm3 (150-375); Red Blood Count 5.99 M/mm3 (4.6-6.20); White Blood Count 10.1 K/mm3 (4.5-10.0)
== END 2021-05-18 15:28 | disposition home or self-care (01) ==
PROVIDERS: PCP Family Medicine; Visit Provider Family Medicine
DX: J06.9 Acute upper respiratory infection, unspecified (principal); J45.909 Unspecified asthma, uncomplicated; R05.9 Cough, unspecified
CPT/HCPCS: 36415; 71046; 85027

== ENCOUNTER 2021-06-02 09:35 | Outpatient (CLI) | payer OTHER, SELFPAY ==
--- NOTE | ~2021-06-02 | NM_ITS ---
EXAMINATION: NM travis stress w perfusion DATE: 06/02/2021 11:38 INDICATION: Essential hypertension. TECHNIQUE: Rest images were obtained following intravenous administration of 9.6 mCi Tc99m tetrofosmi n (Myoview). The patient was infused intravenously with Lexiscan (Regadenoson). Then, 28.7 mCi Tc99m tetrofosmin (Myoview) was administered intravenously, and stress images were obtained. Data was recon structed into short axis and horizontal and vertical long axis SPECT images. Gated SPECT images were also obtained. COMPARISON: None. FINDINGS: There is no definite reversible or fixed perfusion abnormality to suggest ischemia or infar ction. There is normal left ventricular chamber size, wall motion and ejection fraction. Left ventr icular ejection fraction measures 58%. IMPRESSION: 1. Normal myocardial perfusion at rest and during stress. 2. Left ventricular ejection fraction measuring 58%. Reviewed, dictated and finalized at location A. 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
--- NOTE | 2021-06-02 09:38 | EST_ITS ---
Patient Info Name: Evelio Mario Age: 45 years : 1975 Gender: Male Ht: 70 in Wt: 200 lbs BSA: 2.14 m2 HR: 78 bpm BP: 150 / 82 mmHg Heart Rhythm: Sinus Rhythm Exam Date: 06/02/2021 10:32 AM Exam Location: [facility] Stress Patient Status: Outpatient Admit Date: 06/02/2021 Staff Ordering Physician: Maulik Anderson DO Attending Provider: Maulik Anderson DO Referring Physician: Juvenal Yang MD; Exercise Technologist: Mirian Lechuga, GWENDOLYN Exercise Physician: Maulik Anderson DO Exam Type: CA stress travis w NM Study Info Indications R06.00 - Dyspnea, unspecified I10 - Essential (primary) hypertension A regadenoson stress test was performed. Summary 1. 1. Negative lexiscan stress test for ischemic ST changes by ECG criteria. 2. 2. Baseline hypertension. 3. 3. Nuclear scan to follow and will be reported separately. Please correlate with it. 4. 4. Patient informed of the above results. Protocol: Lexiscan Stress ECG Details Stage: REST Duration (min): 1 min : 2 sec HR (bpm): 80 SBP (mmHg): 150 DBP (mmHg): 82 Stage: REST Duration (min): 12 min : 46 sec HR (bpm): 82 SBP (mmHg): 150 DBP (mmHg): 82 Stage: STAGE 1 Duration (min): 1 min : 0 sec HR (bpm): 98 SBP (mmHg): 150 DBP (mmHg): 82 Stage: RECOVERY Duration (min): 1 min : 0 sec HR (bpm): 107 SBP (mmHg): 150 DBP (mmHg): 82 Stage: RECOVERY Duration (min): 2 min : 0 sec HR (bpm): 108 SBP (mmHg): 192 DBP (mmHg): 82 Stage: RECOVERY Duration (min): 3 min : 0 sec HR (bpm): 110 SBP (mmHg): 172 DBP (mmHg): 82 Stage: RECOVERY Duration (min): 4 min : 0 sec HR (bpm): 97 SBP (mmHg): 172 DBP (mmHg): 82 Stage: RECOVERY Duration (min): 4 min : 51 sec HR (bpm): 94 SBP (mmHg): 179 DBP (mmHg): 79 Rest HR: 82 bpm Peak HR: 110 bpm Rest Sys BP: 150 mmHg Peak Sys BP: 192 mmHg Max Pred HR: 176 bpm % Max Pred HR: 63 % Target HR: 150 bpm Max RPP: 21,120 bpm*mmHg Termination Reason: Completed protocol Cardiac Symptoms: Nausea, sob Total Time: 1 min : 0 sec Rest Solano BP: 82 mmHg Peak [place] BP: 82 mmHg Total Dose: 0.4 mg Resting ECG Sinus rhythm, IRBBB. Stress ECG No ST changes. Arrhythmias None. Report Signatures
--- NOTE | 2021-06-02 09:39 | ECHO_ITS ---
Patient Info Name: Evelio Mario Age: 45 years : 1975 Gender: Male Ht: 70 in Wt: 200 lbs BSA: 2.14 m2 HR: 87 bpm BP: 151 / 99 mmHg Technical Quality: Good Exam Date: 06/02/2021 10:43 AM Exam Location: [facility] Pulmonary Patient Status: Outpatient Admit Date: 06/02/2021 Staff Ordering Physician: Maulik Anderson DO Director Pharmacology: Kailyn Frye RDCS Attending Provider: Maulik Anderson DO Referring Physician: Juvenal Yang MD; Exam Type: CA echo doppler color flow Study Info Indications R06.00 - Dyspnea, unspecified Complete two-dimensional, color flow and Doppler transthoracic echocardiogram is performed. Summary 1. Complete two-dimensional, color flow and Doppler transthoracic echocardiogram is performed. 2. Left ventricular chamber dimension is normal. 3. Left ventricular systolic function is normal, estimated at 60-65%. 4. The left ventricular diastolic function is grade II diastolic dysfunction. 5. E/e' 8 is minimally elevated. Left Ventricle E/e' 8 is minimally elevated. Left ventricular chamber dimension is normal. Left ventricular systolic function is normal, estimated at 60-65%. The left ventricular diastolic function is grade II diastolic dysfunction. Right Ventricle Right ventricular chamber dimension is normal. Right ventricular systolic function is normal. Left Atria Left atrial chamber dimension is normal. Right Atria Right atrial chamber dimension is normal. Aortic Valve The aortic valve is trileaflet. There is no aortic valve stenosis. There is no aortic valve regurgitation. Pulmonic Valve There is no pulmonic regurgitation. Mitral Valve There is no mitral valve stenosis. There is no mitral valve regurgitation. Tricuspid Valve There is no tricuspid valve regurgitation. Pericardium/Pleural There is no pericardial effusion. Inferior Vena Cava Normal inferior vena cava with >50% collapse upon inspiration consistent with normal right atrial pressure, 5 mmHg. Aorta The aortic root size at the sinus of Valsalva is normal. Left Ventricular Outflow Tract Name Value Normal LVOT 2D LVOT Diameter 2.0 cm LVOT Doppler LVOT Peak Gradient 4 mmHg LVOT Mean Gradient 2 mmHg LVOT VTI 18 cm LVOT VTI/AV VTI Ratio 0.9 LVOT Stroke Volume 57 ml LVOT CO 4.5 l/min LVOT CI 2.1 l/min/m2 Pulmonic Valve Name Value Normal RVOT Doppler RVOT Peak Gradient 2 mmHg PV Doppler PV Peak Gradient 4 mmHg Mitral Valve Name
[2021-06-02 12:45] LABS: Cholesterol 168 mg/dL (0-200); HDL Direct 37 mg/dL; Triglycerides 167 mg/dL (<150)
[2021-06-02 12:55] LABS: LDL Cholesterol Direct 101 mg/dL
[2021-06-02 19:53] LABS: SARS-CoV-2 RNA PCR Positive
== END 2021-06-02 09:36 | disposition home or self-care (01) ==
PROVIDERS: PCP Family Medicine; Referring Provider Family Medicine; Visit Provider Internal Medicine Cardiovascular Disease
DX: Z01.818 Encounter for other preprocedural examination (principal); R33.9 Retention of urine, unspecified; R06.00 Dyspnea, unspecified; I10 Essential (primary) hypertension
CPT/HCPCS: 36415; 78452; 80061; 87081; 87086; 87088; 93017; 93306; A9502; C9803; U0003; U0005

== ENCOUNTER 2021-07-08 13:48 | Outpatient (CLI) | payer OTHER, SELFPAY ==
--- NOTE | ~2021-07-08 | XR_ITS ---
EXAMINATION: XR chest 2V EXAM DATE: 07/08/2021 14:28 INDICATION: pre-op, hx of hypertension TECHNIQUE: Frontal and lateral projections of the chest obtained and reviewed. Comparison is made to prior examination from 05/18/2021. FINDINGS: The lungs are clear. There are no pleural effusions. The cardiomediastinal silhouette is within normal limits. There is no pneumothorax suspected. There is old right 4th rib fracture. Cerv ical fusion hardware. IMPRESSION: Unremarkable chest x-ray exam. Reviewed, dictated and finalized at location G. 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
[2021-07-08 19:10] LABS: Basophils Absolute Auto 0.1 K/mm3 (0.0-0.1); Basophils Percent Auto 0.5 % (0.2-1.2); Eosinophils Absolute Auto 0.1 K/mm3 (0-0.3); Eosinophils Percent Auto 0.7 % (0-4.4); Hematocrit 49.8 % (42.0-52.0); Hemoglobin 15.9 g/dL (14.0-18.0); Immature Granulocyte Absolute 0.06 K/mm3 (0.00-0.031); Immature Granulocyte Percent A 0.6 % (0-0.5); Lymphocytes Absolute Auto 2.73 K/mm3 (0.9-3.2); Lymphocytes Percent Auto 27.5 % (18.3-44.2); Mean Corpuscular HGB Conc 31.9 g/dl (32-36); Mean Corpuscular Hemoglobin 26.7 pg (26-34); Mean Corpuscular Volume 83.7 fl (80-100); Mean Platelet Volume 9.6 fl (7.4-10.4); Monocytes Absolute Auto 0.7 K/mm3 (0.1-0.6); Monocytes Percent Auto 7.4 % (2.6-8.5); Neutrophils Absolute Auto 6.3 K/mm3 (1.3-6.7); Neutrophils Percent Auto 63.3 % (45.5-73.1); Platelet Count Result 202 k/mm3 (150-375); Red Blood Count 5.95 M/mm3 (4.6-6.20); Red Cell Distribution Width 15.7 % (11.5-14.5); White Blood Count 9.9 K/mm3 (4.5-10.0)
[2021-07-08 19:18] LABS: Add Urine Microscopic? NO; Appearance Urine Clear (Clear); Bilirubin Urine Negative (Negative); Blood Urine Negative (Negative); Color Urine Yellow (Yellow); Glucose Urine UA Negative (Negative); Ketones Urine Negative (Negative); Leukocyte Esterase Ur Negative LEU/UL (NEGATIVE); Nitrate Urine Negative (Negative); Protein Urine Negative (Negative); Specific Grav Ur 1.019 (1.001-1.035); Urobilinogen Urine Negative mg/dL (<2.0)
[2021-07-08 19:36] LABS: Alanine Aminotransferase 14 U/L (4-50); Albumin Level 4.8 g/dL (3.5-5.1); Alkaline Phosphatase 57 U/L (38-126); Anion Gap 10 mmol/L (8-16); Aspartate Amino Transferase 29 U/L (17-59); Bilirubin,Total 0.5 mg/dL (0.2-1.3); Blood Urea Nitrogen 18 mg/dL (9-20); Calcium 9.6 mg/dL (8.4-10.2); Carbon Dioxide 27 mmol/L (22-30); Chloride 103 mmol/L (98-107); Estimated Glomerular Filt Rate > 60; Glucose 101 mg/dL (65-110); Potassium 4.9 mmol/L (3.4-5.0); Sodium 140 mmol/L (137-145)
[2021-07-15 18:56] LABS: Acetylchol Receptor Binding Ab <0.30 nmol/L
== END 2021-07-08 13:49 | disposition home or self-care (01) ==
LOC: ANHBWCLAB 13:50
PROVIDERS: PCP Family Medicine; Visit Provider Family Medicine
DX: Z01.818 Encounter for other preprocedural examination (principal); M25.50 Pain in unspecified joint; M62.838 Other muscle spasm
CPT/HCPCS: 36415; 71046; 80053; 81003; 84238; 85025

== ENCOUNTER 2021-07-17 11:49 | Outpatient (CLI) | payer OTHER, SELFPAY ==
--- NOTE | 2021-07-17 | ECG_ITS ---
Measurements Intervals Cut Off Rate: 68 P: 59 SC: 199 QRS: 37 QRSD: 98 T: 29 QT: 350 QTc: 373 Interpretive Statements SINUS RHYTHM NO PREVIOUS ECG AVAILABLE FOR COMPARISON Electronically Signed On 07-17-2021 15:59:34 ROLL FORGER by Damaso Montes M.D.
== END 2021-07-17 11:50 | disposition home or self-care (01) ==
LOC: ANHLAB 11:51
PROVIDERS: PCP Family Medicine; Visit Provider Family Medicine
DX: Z01.818 Encounter for other preprocedural examination (principal)
CPT/HCPCS: 87081; 93005

== ENCOUNTER 2021-08-18 13:20 | Outpatient (CLI) | payer OTHER, SELFPAY ==
[2021-08-18 14:02] LABS: Hematocrit 44.7 % (42.0-52.0); Hemoglobin 15.1 g/dL (14.0-18.0); Mean Corpuscular HGB Conc 33.8 g/dl (32-36); Mean Corpuscular Hemoglobin 27.5 pg (26-34); Mean Corpuscular Volume 81.3 fl (80-100); Platelet Count Result 235 k/mm3 (150-375); Red Cell Distribution Width 14.1 % (11.5-14.5); White Blood Count 6.7 K/mm3 (4.5-10.0)
[2021-08-18 14:43] LABS: Prostate Specific Antigen 0.5 ng/mL (< OR = 4.0)
[2021-08-29 19:35] LABS: Testosterone Free 229.8 pg/mL (35.0-155.0); Testosterone Total 995 ng/dL (250-1100)
== END 2021-08-18 13:21 | disposition home or self-care (01) ==
PROVIDERS: PCP Family Medicine; Visit Provider Family Medicine
DX: E03.9 Hypothyroidism, unspecified (principal); E29.1 Testicular hypofunction
CPT/HCPCS: 36415; 84153; 84402; 84403; 84443; 85027; G0103

== ENCOUNTER 2021-08-28 14:54 | Outpatient (CLI) | payer OTHER, SELFPAY ==
--- NOTE | ~2021-08-28 | MR_ITS ---
EXAMINATION: MR chest wo/w con DATE: 08/28/2021 15:57 INDICATION: Left arm pain and numbness and burning. TECHNIQUE: Multisequence magnetic resonance imaging (MRI) of the brachial plexus was performed withou t and with 17 mL MultiHance intravenous contrast. COMPARISON: Cervical spine MRI 12/31/2020 FINDINGS: There is 4 degrees levocurvature of upper thoracic spine. There are changes of anterior fus ion procedure from C3 to C7 with anterior plate and screws. There is no abnormal mass. The brachial p reanna demonstrates normal signal intensity on both sides. There is no muscle signal abnormality to martinez ggest denervation. IMPRESSION: 1. Normal brachial plexus. 2. Anterior fusion procedure from C3 to C7. Reviewed, dictated and finalized at location A.
[2021-08-28 15:20] LABS: Estimated Glomerular Filt Rate 55
== END 2021-08-28 14:55 | disposition home or self-care (01) ==
PROVIDERS: PCP Family Medicine
DX: M79.602 Pain in left arm (principal); M54.12 Radiculopathy, cervical region; Z98.1 Arthrodesis status
CPT/HCPCS: 71552; A9577

== ENCOUNTER 2021-09-03 11:11 | Outpatient (CLI) | payer OTHER, SELFPAY ==
--- NOTE | ~2021-09-03 | XR_ITS ---
EXAMINATION: XR lumbar spine 2-3V DATE: 09/03/2021 11:32 INDICATION: Low back pain after fall TECHNIQUE: Anteroposterior and lateral views of the lumbar spine, and cone-down lateral view of the l umbosacral junction were obtained. COMPARISON: CT, 12/31/2020 FINDINGS: There are changes of anterior fusion from L2-3 through L5-S1 and posterior fusion at L2-3 a nd L4-S1. There are 3 mm of unchanged retrolisthesis of L2 on L3. There is no fracture. No hardware f ailure is evident. The vertebral body heights are maintained. IMPRESSION: 1. Mild lumbar spondylosis without acute osseous abnormality. Reviewed, dictated and finalized at location F.
--- NOTE | ~2021-09-03 | XR_ITS ---
EXAMINATION: XR thoracic spine 3V DATE: 09/03/2021 11:32 INDICATION: Thoracic back pain after fall TECHNIQUE: AP, lateral and lateral swimmer's views of the thoracic spine were obtained. COMPARISON: None. FINDINGS: Bone alignment is normal. There is no fracture. The vertebral body heights are maintained. There is mild loss of intervertebral disc space height at a few levels in the thoracic spine. Changes of anterior fusion procedure are noted in the lower cervical spine. IMPRESSION: 1. Mild thoracic spondylosis without acute findings. Reviewed, dictated and finalized at location F.
== END 2021-09-03 11:12 | disposition home or self-care (01) ==
LOC: ANHBWCIMG 11:14
PROVIDERS: PCP Family Medicine; Visit Provider Family Medicine
DX: Z98.1 Arthrodesis status (principal); M47.815 Spondylosis without myelopathy or radiculopathy, thoracolumbar region; M47.817 Spondylosis without myelopathy or radiculopathy, lumbosacral region
CPT/HCPCS: 72072; 72100

== ENCOUNTER 2021-09-03 15:19 | Outpatient (CLI) | payer OTHER, SELFPAY ==
--- NOTE | ~2021-09-03 | CT_ITS ---
EXAMINATION: CT brain wo con DATE: 09/03/2021 15:33 INDICATION: Dizziness and giddiness. TECHNIQUE: Computed tomography (CT) of the head was performed without intravenous contrast. The mA wa s adjusted according to patient size. Iterative reconstruction technique was employed. The dose-lengt h product was 605.33 mGy-cm. COMPARISON: Head CT 04/27/2009, brain MRI 07/27/2012 FINDINGS: There is no intracranial hemorrhage, acute infarction, or abnormal intracranial mass lesion . The ventricles are normal in size. The orbits are normal. There is mild mucosal thickening in the p aranasal sinuses. The mastoid air cells are normal. There is posterior superior scalp soft tissue swe lling. IMPRESSION: 1. Normal brain. Reviewed, dictated and finalized at location B. IMPRESSION: 1. Normal brain.
== END 2021-09-03 15:20 | disposition home or self-care (01) ==
PROVIDERS: PCP Family Medicine; Visit Provider Family Medicine
DX: R53.1 Weakness (principal); R51.9 Headache, unspecified; R42 Dizziness and giddiness; M79.89 Other specified soft tissue disorders; T14.90XA Injury, unspecified, initial encounter; R47.81 Slurred speech
CPT/HCPCS: 70450; 72072; 72100

== ENCOUNTER 2021-09-15 09:31 | Outpatient (CLI) | payer OTHER, SELFPAY ==
--- NOTE | 2021-09-15 11:00 | NEURO_ITS ---
Impression: # Complains of left upper extremity decreased strength following cervical fusion in 08/04. # Normal nerve conduction study including F-waves. # Needle/EMG exam revealed no denervation potentials but decreased motor unit potentials noted. # Clinical correlation recommended. Nerve Conduction Studies Anti Sensory Summary Table Stim Site NR Peak (ms) P-T Amp (?V) Site1 Site2 Delta-P (ms) Dist (cm) Ricardo (m/s) Left Median Anti Sensory (2-3nd Digit) Wrist 2.9 53.3 Wrist 2-3nd Digit 2.9 14.0 48 Wrist 2.8 72.5 Wrist 2-3nd Digit 2.9 14.0 48 Left Radial Anti Sensory (Base 1st Digit) Wrist 1.9 16.7 Wrist Base 1st Digit 1.9 0.0 Left Ulnar Anti Sensory (5th Digit) Wrist 2.2 56.0 Wrist 5th Digit 2.2 14.0 64 Motor Summary Table Stim Site NR Onset (ms) O-P Amp (mV) Site1 Site2 Delta-0 (ms) Dist (cm) Ricardo (m/s) Left Median Motor (Abd Poll Brev) Wrist 2.5 4.8 Elbow Wrist 4.9 30.0 61 Elbow 7.4 4.0 Left Ulnar Motor (Abd Dig Minimi) Wrist 2.7 7.5 A Elbow Wrist 4.9 30.0 61 A Elbow 7.6 6.0 F Wave Studies NR F-Lat (ms) L-R F-Lat (ms) Left Median (Mrkrs) (Abd Poll Brev) 26.80 Left Ulnar (Mrkrs) (Abd Dig Min) 27.50 EMG Side Muscle Nerve Root Ins Act Fibs Amp Dur Recrt Comment Left 1stDorInt Ulnar C8-T1 Nml Nml Nml Nml Nml Left Ext Indicis Radial (Post Int) C7-8 Nml Nml Nml Nml Reduced Left Ext Digitorum Radial (Post Int) C7-8 Nml Nml Nml Nml Nml Left BrachioRad Radial C5-6 Nml Nml Nml Nml Nml Left PronatorTeres Median C6-7 Nml Nml Nml Nml Nml Left Abd Poll Brev Median C8-T1 Nml Nml Nml Nml Reduced Left Abd Poll Long Radial (Post Int) C7-8 Nml Nml Nml Nml Nml Left Biceps Musculocut C5-6 Nml Nml Nml Nml Reduced Left Triceps Radial C6-7-8 Nml Nml Nml Nml Reduced Left Deltoid Axillary C5-6 Nml Nml Nml Nml Nml Left ABD Dig Min Ulnar C8-T1 Nml Nml Nml Nml Reduced MTDD
== END 2021-09-15 09:32 | disposition home or self-care (01) ==
LOC: ANHNEURO 09:32
PROVIDERS: PCP Family Medicine; Visit Provider Internal Medicine Cardiovascular Disease
DX: R53.1 Weakness (principal); M54.10 Radiculopathy, site unspecified; M54.6 Pain in thoracic spine; E29.1 Testicular hypofunction; E03.9 Hypothyroidism, unspecified
CPT/HCPCS: 95886; 95909

== ENCOUNTER 2021-10-15 11:40 | Outpatient (CLI) | payer OTHER, SELFPAY ==
[2021-10-20 21:16] LABS: Acetylchol Receptor Binding Ab <0.30 nmol/L
[2021-10-21 00:55] LABS: Testosterone Total 175 ng/dL (250-1100)
== END 2021-10-15 11:41 | disposition home or self-care (01) ==
PROVIDERS: PCP Family Medicine; Visit Provider Psychiatry & Neurology Neurology
DX: G47.00 Insomnia, unspecified (principal); E29.1 Testicular hypofunction
CPT/HCPCS: 36415; 84238; 84402; 84403

== ENCOUNTER 2021-10-15 14:59 | Outpatient (CLI) | payer OTHER, SELFPAY ==
--- NOTE | ~2021-10-15 | MR_ITS ---
EXAMINATION: MR shoulder LT wo con DATE: 10/15/2021 15:47 INDICATION: Left shoulder pain TECHNIQUE: Magnetic resonance imaging (MRI) of the left shoulder was performed without intravenous co ntrast. Sequences included axial PD-weighted FS FSE, coronal oblique PD-weighted FS FSE, coronal obli que T2-weighted FS FSE, sagittal PD-weighted FS FSE, and sagittal T1-weighted SE. COMPARISON: None. FINDINGS: Coracoacromial arch: The acromion undersurface is curved in morphology (type II). The coracoacromial ligament is normal. M ild acromioclavicular osteoarthritis. Rotator cuff: The supraspinatus, infraspinatus and teres minor tendons are normal. The subscapularis tendon is norm al. Normal rotator cuff muscle bulk and signal. Biceps tendon, glenoid labrum and glenohumeral cartilage: Long head of the biceps tendon is normal. There are 3 suture anchors along the anterior to anterosupe rior glenoid consistent with prior labral repair. Amorphous increased signal of less than fluid inten sity at the 11:00 position of the anterosuperior glenoid labrum likely related to labral degeneration . The posterior and inferior labrum is diminutive but without discrete tear. Partial-thickness cartil age loss along the inferior margin of the humeral head and along the cephalad third of the glenoid. Fluid: Physiologic amount of fluid in the glenohumeral joint and biceps tendon sheath. No loose osteochondr al bodies. No abnormal fluid signal in the subacromial/subdeltoid bursa to suggest bursitis. Bones: Normal marrow signal with no edema, fracture or pathologic marrow replacing process. IMPRESSION: 1. Postoperative change of likely repair of the anterior to anterosuperior glenoid labrum with amorph ous increased signal of less than fluid intensity at the 11:00 position of the anterosuperior labrum likely reflecting degeneration. 2. Mild glenohumeral osteoarthritis with additional likely degeneration of the diminutive posterior a nd inferior labrum. Reviewed, dictated and finalized at location B. IMPRESSION: 1. Postoperative change of likely repair of the anterior to anterosuperior faith oid labrum with amorphous increased signal of less than fluid intensity at the 11:00 position of the anterosuperior labrum likely reflecting degeneration. 2. Mild glenohumeral osteoarthritis with additional likely degeneration of the diminutive posterior and inferior labrum.
== END 2021-10-15 15:00 | disposition home or self-care (01) ==
LOC: ANHIMG 15:02
PROVIDERS: PCP Family Medicine
DX: M25.512 Pain in left shoulder (principal); Z98.890 Other specified postprocedural states; M19.012 Primary osteoarthritis, left shoulder
CPT/HCPCS: 36415; 73221; 84238; 84402; 84403

== ENCOUNTER 2021-11-10 09:52 | Outpatient (CLI) | payer OTHER, SELFPAY | END 2021-11-10 09:53 | disposition home or self-care (01) | LOC: ANHBWCAUD 09:54 | PROVIDERS: PCP Family Medicine; Visit Provider Family Medicine | DX: H83.3X9 Noise effects on inner ear, unspecified ear (principal) | CPT/HCPCS: 92557; 92567 ==

== ENCOUNTER 2021-12-09 16:51 | Outpatient (CLI) | payer OTHER, SELFPAY ==
--- NOTE | ~2021-12-09 | CT_ITS ---
EXAMINATION: CT cervical spine wo con DATE: 12/09/2021 17:11 INDICATION: Cervical radiculopathy TECHNIQUE: Computed tomography (CT) of the cervical spine was performed without intravenous contrast. Automated exposure control and iterative reconstruction technique were employed. The dose-length pro duct was 473.77 mGy-cm. COMPARISON: 03/04/2021 FINDINGS: Alignment is normal. C3-C7 anterior spinal fusion with plate and screw fixation extending from C3-C5 and at C6-C7. Incorporation of bone graft with solid osseous bridging from C3-C6. Bone graft cage at C6-C7 without definitive osseous fusion across the disc space. The C6-C7 anterior spinal fusion is ne w since the prior study. With resection of the prior bulging disc and resolution of the prior mild ce ntral canal stenosis at this level. Unfused vertebral body and disc heights are normal. No significan t interval change in cervical spondylosis as previously detailed with mild neural foraminal stenosis at a few levels on both the left and right. Cervical soft tissues are unremarkable. Mastoid air cells and middle ear cavities along the visualized portions of the paranasal sinuses, airway and apices of lungs are clear. IMPRESSION: 1. Interval extension of a prior C3-C6 anterior spinal fusion now with new anterior plate and screw f ixation for anterior spinal fusion at C6-C7. 2. Mild cervical spondylosis without interval change aside from resection of the prior bulging disc a t C6-C7. Reviewed, dictated and finalized at location A. IMPRESSION: 1. Interval extension of a prior C3-C6 anterior spinal fusion now with new ante rior plate and screw fixation for anterior spinal fusion at C6-C7. 2. Mild cervical spondylosis without interval change aside from resection of th e prior bulging disc at C6-C7.
== END 2021-12-09 16:52 | disposition home or self-care (01) ==
PROVIDERS: PCP Family Medicine
DX: M47.22 Other spondylosis with radiculopathy, cervical region (principal)
CPT/HCPCS: 72125

== ENCOUNTER 2021-12-14 10:09 | Outpatient (CLI) | payer OTHER, SELFPAY ==
--- NOTE | ~2021-12-14 | XR_ITS ---
XR foot LT standing 2V DATE: 12/14/2021 11:08 INDICATION: Left foot pain, arthritis TECHNIQUE: Standing AP and lateral views COMPARISON: None FINDINGS: No fracture or dislocation, periosteal reaction or bone destruction. Joint spaces are prese rved. No erosive change is noted. IMPRESSION: No significant abnormality Reviewed, dictated and finalized at location B. IMPRESSION: No significant abnormality
--- NOTE | ~2021-12-14 | XR_ITS ---
XR hand BI arthritis min 3V DATE: 12/14/2021 11:09 INDICATION: Pain. Arthritis. TECHNIQUE: 4 views of each hand COMPARISON: None FINDINGS: There is minimal osteoarthritis at the third metacarpophalangeal joints bilaterally. There is mild osteoarthritis at the proximal interphalangeal joint of the right third digit and minimal ost eoarthritis at the interphalangeal joint of the left first digit. No fracture, dislocation, periosteal reaction or bone destruction or erosive change of either hand is noted. IMPRESSION: Mild osteoarthritis Reviewed, dictated and finalized at location B. IMPRESSION: Mild osteoarthritis
--- NOTE | ~2021-12-14 | XR_ITS ---
XR sacroiliac joints min 3V DATE: 12/14/2021 11:08 INDICATION: Pain TECHNIQUE: AP and bilateral oblique views COMPARISON: None FINDINGS: There and interbody spinal fusion at L4-S1. The sacroiliac joints are intact without evidence of fracture, dislocation, erosive change or ankylos is. IMPRESSION: Status post posterior and interbody spinal fusion at L4-S1 Negative sacroiliac joints Reviewed, dictated and finalized at Location A. Reviewed, dictated and finalized at location B.
--- NOTE | ~2021-12-14 | XR_ITS ---
XR foot RT standing 2V DATE: 12/14/2021 11:07 INDICATION: Pain. Arthritis. TECHNIQUE: Standing AP and lateral views COMPARISON: None FINDINGS: No fracture or dislocation, periosteal reaction or bone destruction. IMPRESSION: Negative Reviewed, dictated and finalized at location B. IMPRESSION: Negative
[2021-12-14 11:38] LABS: Rheumatoid Factor < 8.6 IU/ML (<12)
[2021-12-17 21:39] LABS: Anti Cyclic Citrullinated Pept <16 Units (<20)
== END 2021-12-14 10:10 | disposition home or self-care (01) ==
LOC: ANHLAB 10:12
PROVIDERS: PCP Family Medicine; Visit Provider Internal Medicine
DX: M47.816 Spondylosis without myelopathy or radiculopathy, lumbar region (principal); M47.812 Spondylosis without myelopathy or radiculopathy, cervical region; M79.642 Pain in left hand; M79.641 Pain in right hand; Z98.1 Arthrodesis status; M19.042 Primary osteoarthritis, left hand; M19.041 Primary osteoarthritis, right hand
CPT/HCPCS: 36415; 72202; 73130; 73620; 86200; 86430

== ENCOUNTER 2021-12-16 07:49 | Outpatient (CLI) | payer OTHER, SELFPAY ==
--- NOTE | ~2021-12-16 | XR_ITS ---
EXAM: XR thoracic spine 3V DATE: 12/16/2021 08:12 HISTORY: M54.6 - Pain in thoracic spine . COMPARISON: 09/03/2021. FINDINGS: Lower cervical fusion hardware. Partially visualized lumbar fusion hardware. Mild scoliosis . Vertebral body alignment intact. Vertebral body heights preserved. Mild multilevel disc space narro wing. No traumatic malalignment or fracture. Visualized lung parenchyma is clear. IMPRESSION: Mild multilevel degenerative disc disease. Reviewed, dictated and finalized at location K.
[2021-12-16 21:11] LABS: Basophils Absolute Auto 0.1 K/mm3 (0.0-0.1); Basophils Percent Auto 0.4 % (0.2-1.2); Eosinophils Percent Auto 0.3 % (0-4.4); Hemoglobin 16.3 g/dL (14.0-18.0); Immature Granulocyte Absolute 0.22 K/mm3 (0.00-0.031); Immature Granulocyte Percent A 1.7 % (0-0.5); Lymphocytes Absolute Auto 3.65 K/mm3 (0.9-3.2); Lymphocytes Percent Auto 27.9 % (18.3-44.2); Mean Corpuscular HGB Conc 32.6 g/dl (32-36); Mean Corpuscular Volume 92.1 fl (80-100); Mean Platelet Volume 9.7 fl (7.4-10.4); Monocytes Absolute Auto 1.1 K/mm3 (0.1-0.6); Monocytes Percent Auto 8.6 % (2.6-8.5); Neutrophils Percent Auto 61.1 % (45.5-73.1); Platelet Count Result 241 k/mm3 (150-375); Red Blood Count 5.43 M/mm3 (4.6-6.20); Red Cell Distribution Width 13.3 % (11.5-14.5); White Blood Count 13.1 K/mm3 (4.5-10.0)
[2021-12-16 21:49] LABS: Cholesterol 174 mg/dL (0-200); HDL Direct 48 mg/dL; Triglycerides 125 mg/dL (<150)
[2021-12-16 21:59] LABS: LDL Cholesterol Direct 99 mg/dL
[2021-12-16 22:19] LABS: Prostate Specific Antigen 0.6 ng/mL (< OR = 4.0)
[2021-12-21 09:30] LABS: Testosterone Total 457 ng/dL (250-1100)
== END 2021-12-16 07:50 | disposition home or self-care (01) ==
LOC: ANHBWCLAB 07:51
PROVIDERS: PCP Family Medicine; Visit Provider Family Medicine
DX: Z12.5 Encounter for screening for malignant neoplasm of prostate (principal); R79.89 Other specified abnormal findings of blood chemistry; Z98.1 Arthrodesis status; M47.814 Spondylosis without myelopathy or radiculopathy, thoracic region; M41.9 Scoliosis, unspecified
CPT/HCPCS: 36415; 72072; 80061; 84153; 84402; 84403; 85025; G0103

== ENCOUNTER 2021-12-28 17:01 | Outpatient (CLI) | payer OTHER, SELFPAY ==
--- NOTE | ~2021-12-28 | MR_ITS ---
EXAMINATION: MR thoracic spine wo con DATE: 12/28/2021 17:26 INDICATION: Thoracic back pain. TECHNIQUE: Magnetic resonance imaging (MRI) of the thoracic spine was performed without intravenous c ontrast. Sagittal localizer T1-weighted FSE of the cervical spine was obtained. Thoracic spine sequen sejal included sagittal T2-weighted FSE, sagittal T1-weighted FSE, sagittal T2-weighted FS FSE, and axi al T2-weighted FSE. COMPARISON: Thoracic spine radiographs 12/16/2021 FINDINGS: There is 6 degrees levocurvature of upper thoracic spine. There are changes of anterior fus ion procedure from C3 to C7 with anterior plate and screws. There is mild chronic anterior wedging of T11 and T12 vertebral bodies. There are Schmorl's nodes at multiple levels. There is mildly decrease d disc height at T5-T6, T7-T8, and T8-T9. There is multilevel facet joint osteoarthritis, moderate at multiple levels in upper thoracic spine. On the right, there is mild neural foraminal stenosis at T3 -T4 and T10-T11. On the left, there is mild neural foraminal stenosis at T10-T11. At T3-T4, there is a right central protrusion with mild central canal stenosis. At T10-T11, the disc is bulging with mil d central canal stenosis. At T11-T12, the disc is bulging with mild central canal stenosis. The spina l cord signal intensity is normal. The conus medullaris is at T12-L1. IMPRESSION: 1. Mild thoracic spondylosis. 2. Anterior fusion procedure from C3 to C7. Reviewed, dictated and finalized at location A.
== END 2021-12-28 17:02 | disposition home or self-care (01) ==
PROVIDERS: PCP Family Medicine; Visit Provider Family Medicine
DX: M47.894 Other spondylosis, thoracic region (principal); Z98.1 Arthrodesis status
CPT/HCPCS: 72146

== ENCOUNTER 2022-03-23 08:46 | Outpatient (CLI) | payer OTHER, SELFPAY ==
[2022-03-23 18:28] LABS: Basophils Percent Auto 0.5 % (0.2-1.2); Eosinophils Absolute Auto 0.1 K/mm3 (0-0.3); Eosinophils Percent Auto 1.6 % (0-4.4); Hematocrit 53.2 % (42.0-52.0); Hemoglobin 17.5 g/dL (14.0-18.0); Immature Granulocyte Absolute 0.05 K/mm3 (0.00-0.031); Immature Granulocyte Percent A 0.6 % (0-0.5); Lymphocytes Absolute Auto 2.66 K/mm3 (0.9-3.2); Lymphocytes Percent Auto 34.4 % (18.3-44.2); Mean Corpuscular HGB Conc 32.9 g/dl (32-36); Mean Corpuscular Hemoglobin 29.7 pg (26-34); Mean Corpuscular Volume 90.3 fl (80-100); Mean Platelet Volume 9.7 fl (7.4-10.4); Monocytes Absolute Auto 0.6 K/mm3 (0.1-0.6); Neutrophils Absolute Auto 4.2 K/mm3 (1.3-6.7); Neutrophils Percent Auto 54.9 % (45.5-73.1); Platelet Count Result 266 k/mm3 (150-375); Red Blood Count 5.89 M/mm3 (4.6-6.20); Red Cell Distribution Width 12.5 % (11.5-14.5); White Blood Count 7.7 K/mm3 (4.5-10.0)
[2022-03-23 19:10] LABS: Prostate Specific Antigen 0.5 ng/mL (< OR = 4.0)
[2022-03-23 19:30] LABS: Iron 139 ug/dL (49-181)
[2022-03-23 19:40] LABS: Percent Iron Saturation 32 % (20-50)
[2022-03-28 18:55] LABS: Testosterone Free 32.9 pg/mL (35.0-155.0); Testosterone Total 272 ng/dL (250-1100)
== END 2022-03-23 08:47 | disposition home or self-care (01) ==
LOC: ANHBWCLAB 08:47
PROVIDERS: PCP Family Medicine; Visit Provider Family Medicine
DX: E61.1 Iron deficiency (principal); E03.9 Hypothyroidism, unspecified; R79.89 Other specified abnormal findings of blood chemistry
CPT/HCPCS: 36415; 83540; 83550; 84153; 84402; 84403; 84443; 85025; G0103

== ENCOUNTER 2022-06-23 10:15 | Outpatient (CLI) | payer OTHER, SELFPAY ==
[2022-06-23 20:21] LABS: Basophils Percent Auto 0.4 % (0.2-1.2); Eosinophils Absolute Auto 0.2 K/mm3 (0-0.3); Eosinophils Percent Auto 2.6 % (0-4.4); Hematocrit 51.3 % (42.0-52.0); Hemoglobin 16.7 g/dL (14.0-18.0); Immature Granulocyte Absolute 0.04 K/mm3 (0.00-0.031); Immature Granulocyte Percent A 0.6 % (0-0.5); Lymphocytes Absolute Auto 2.92 K/mm3 (0.9-3.2); Lymphocytes Percent Auto 41.7 % (18.3-44.2); Mean Corpuscular HGB Conc 32.6 g/dl (32-36); Mean Corpuscular Hemoglobin 30.1 pg (26-34); Mean Corpuscular Volume 92.6 fl (80-100); Mean Platelet Volume 9.8 fl (7.4-10.4); Monocytes Absolute Auto 0.5 K/mm3 (0.1-0.6); Monocytes Percent Auto 7.6 % (2.6-8.5); Neutrophils Absolute Auto 3.3 K/mm3 (1.3-6.7); Neutrophils Percent Auto 47.1 % (45.5-73.1); Platelet Count Result 220 k/mm3 (150-375); Red Blood Count 5.54 M/mm3 (4.6-6.20); Red Cell Distribution Width 12.8 % (11.5-14.5)
[2022-06-23 20:32] LABS: Free T4 Free Thyroxine 0.85 ng/mL (0.78-2.19)
[2022-06-23 21:53] LABS: Prostate Specific Antigen 0.4 ng/mL (< OR = 4.0)
[2022-06-26 04:14] LABS: Triiodothyronine T3 Free 3.8 pg/mL (2.3-4.2)
[2022-07-01 14:10] LABS: Testosterone Free 191.3 pg/mL (35.0-155.0); Testosterone Total 688 ng/dL (250-1100)
== END 2022-06-23 10:16 | disposition home or self-care (01) ==
LOC: ANHBWCLAB 10:17
PROVIDERS: PCP Family Medicine; Visit Provider Family Medicine
DX: R79.89 Other specified abnormal findings of blood chemistry (principal); E03.9 Hypothyroidism, unspecified; Z12.5 Encounter for screening for malignant neoplasm of prostate
CPT/HCPCS: 36415; 84153; 84402; 84403; 84439; 84443; 84481; 85025; G0103

== ENCOUNTER 2022-07-01 14:23 | Outpatient (CLI) | payer OTHER, SELFPAY ==
[2022-07-01 14:53] LABS: Creatine Kinase 158 U/L (55-170)
[2022-07-06 13:41] LABS: Aldolase 4.7 U/L (<=8.1)
== END 2022-07-01 14:24 | disposition home or self-care (01) ==
LOC: ANHLAB 14:24
PROVIDERS: PCP Family Medicine; Visit Provider Psychiatry & Neurology Neurology
DX: R25.2 Cramp and spasm (principal)
CPT/HCPCS: 36415; 82085; 82550

== ENCOUNTER 2022-09-14 14:13 | Outpatient (CLI) | payer OTHER, SELFPAY ==
--- NOTE | ~2022-09-14 | MR_ITS ---
EXAMINATION: MR shoulder RT wo con DATE: 09/14/2022 15:56 INDICATION: Severe right shoulder pain, weakness and limited range of motion. TECHNIQUE: Magnetic resonance imaging (MRI) of the right shoulder was performed without intravenous c ontrast. Sequences included axial PD-weighted FS FSE, coronal oblique PD-weighted FS FSE, coronal obl ique T2-weighted FS FSE, sagittal PD-weighted FS FSE, and sagittal T1-weighted SE. COMPARISON: None. FINDINGS: Coracoacromial arch: The acromion undersurface is curved in morphology (type II). The coracoacromial ligament is normal. M oderate acromioclavicular osteoarthritis with small inferiorly directed osteophytes at the lateral he ad of the clavicle which exerts mild mass effect upon the underlying supraspinatus. Rotator cuff: Mild infraspinatus tendinopathy without tear. The supraspinatus and teres minor tendons are normal. M ild subscapularis tendinopathy with very small partial-thickness intrasubstance tear and a 2 x 2 mm r egion along the cephalad lesser tuberosity footplate of the tendon. There is prominent muscular edema surrounding a partial thickness intramuscular tear along the proximal myotendinous junction of the s upraspinatus which is located approximately 9 cm medial to the greater tuberosity footplate. There is a small fluid collection at the site of the muscle tear which measures measures 18 x 9 cm in cross-s ectional area, involving approximately one quarter of the cross-sectional area of the muscle belly at this level. There is up to 1 cm proximal to distal maximal separation of the tear margins. There is feathery muscular edema in the infraspinatus and teres minor muscle bellies which given the partial t ear in the supraspinatus muscle belly suggests low-grade muscle strain over nonspecific myositis or o ther etiologies of increased muscle signal. Biceps tendon, glenoid labrum and glenohumeral cartilage: Long head of the biceps tendon is normal. Increased intrasubstance signal at the 11:30-12:30 position of the superior glenoid labrum consistent with a small SLAP tear. Glenohumeral cartilage is normal. Fluid: Physiologic amount of fluid in the glenohumeral joint and biceps tendon sheath. No loose osteochondr al bodies. No abnormal fluid signal in the subacromial/subdeltoid bursa to suggest bursitis. Bones: Normal marrow signal with no edema, fracture or abnormal marrow replacing process. IMPRESSION: 1. Partial thickness intramuscular tear at the myotendinous junction of the supraspinatus muscle colbert y which involves approximately one quarter of the cross-sectional area of the muscle belly. 2. Mild subscapularis and infraspinatus tendinopathy with very small partial-thickness tear at the le sser tuberosity insertion of the subscapularis tendon. 3. Mild feathery muscular edema at the infraspinatus and teres minor muscle bellies likely sequela of low-grade muscle strains. 4. Small SLAP tear at the superior glenoid labrum. 5. Moderate acromioclavicular osteoarthritis. Reviewed, dictated and finalized at location A. IMPRESSION: 1. Partial thickness intramuscular tear at the myotendinous junction of the sup raspinatus muscle belly which involves approximately one quarter of the cross-s ectional area of the muscle belly. 2. Mild subscapularis and infraspinatus tendinopathy with very small partial-th ickness tear at the lesser tuberosity insertion of the subscapularis tendon. 3. Mild feathery muscular edema at the infraspinatus and teres minor muscle bel lies likely sequela of low-grade muscle strains. 4. Small SLAP tear at the superior glenoid labrum. 5. Moderate acromioclavicular osteoarthritis.
[2022-09-14 16:12] LABS: Basophils Percent Auto 0.3 % (0.2-1.2); Eosinophils Absolute Auto 0.1 K/mm3 (0-0.3); Eosinophils Percent Auto 1.5 % (0-4.4); Hematocrit 41.9 % (42.0-52.0); Hemoglobin 13.4 g/dL (14.0-18.0); Immature Granulocyte Absolute 0.03 K/mm3 (0.00-0.031); Immature Granulocyte Percent A 0.4 % (0-0.5); Mean Corpuscular Hemoglobin 27.9 pg (26-34); Mean Corpuscular Volume 87.3 fl (80-100); Mean Platelet Volume 8.9 fl (7.4-10.4); Monocytes Absolute Auto 0.5 K/mm3 (0.1-0.6); Monocytes Percent Auto 6.6 % (2.6-8.5); Neutrophils Absolute Auto 3.9 K/mm3 (1.3-6.7); Neutrophils Percent Auto 56.2 % (45.5-73.1); Platelet Count Result 256 k/mm3 (150-375); Red Cell Distribution Width 13.7 % (11.5-14.5); White Blood Count 6.9 K/mm3 (4.5-10.0)
[2022-09-14 17:22] LABS: Iron 38 ug/dL (49-181)
[2022-09-14 17:32] LABS: Percent Iron Saturation 9 % (20-50)
== END 2022-09-14 14:14 | disposition home or self-care (01) ==
LOC: ANHLAB 14:14
PROVIDERS: PCP Family Medicine; Visit Provider Family Medicine
DX: M19.011 Primary osteoarthritis, right shoulder (principal); R53.83 Other fatigue; R20.2 Paresthesia of skin; R53.1 Weakness
CPT/HCPCS: 36415; 73221; 83540; 83550; 84443; 85025

== ENCOUNTER 2022-12-09 08:34 | Outpatient (CLI) | payer OTHER, SELFPAY ==
[2022-12-09 19:54] LABS: Alanine Aminotransferase 11 U/L (6-50); Albumin Level 4.6 g/dL (3.5-5.1); Alkaline Phosphatase 52 U/L (38-126); Anion Gap 6 mmol/L (8-16); Aspartate Amino Transferase 49 U/L (17-59); Bilirubin,Total 0.6 mg/dL (0.2-1.3); Blood Urea Nitrogen 17 mg/dL (9-20); Calcium 9.1 mg/dL (8.4-10.2); Carbon Dioxide 25 mmol/L (22-30); Chloride 109 mmol/L (98-107); Cholesterol 186 mg/dL (0-200); Estimated Glomerular Filt Rate > 60; Glucose 97 mg/dL (65-110); HDL Direct 28 mg/dL; Potassium 4.4 mmol/L (3.4-5.0); Sodium 140 mmol/L (137-145); Triglycerides 129 mg/dL (<150)
[2022-12-09 20:05] LABS: LDL Cholesterol Direct 118 mg/dL
[2022-12-09 20:14] LABS: Hemoglobin 16.9 g/dL (14.0-18.0); Mean Corpuscular HGB Conc 30.7 g/dl (32-36); Mean Corpuscular Hemoglobin 26.8 pg (26-34); Mean Corpuscular Volume 87.2 fl (80-100); Mean Platelet Volume 9.5 fl (7.4-10.4); Platelet Count Result 198 k/mm3 (150-375); Red Blood Count 6.31 M/mm3 (4.6-6.20); Red Cell Distribution Width 13.8 % (11.5-14.5)
[2022-12-09 20:57] LABS: Folic Acid 14.6 ng/mL (2.76->20)
[2022-12-13 14:48] LABS: Testosterone Free 135.8 pg/mL (35.0-155.0); Testosterone Total 659 ng/dL (250-1100)
== END 2022-12-09 08:35 | disposition home or self-care (01) ==
LOC: ANHBWCLAB 08:35
PROVIDERS: PCP Family Medicine; Visit Provider Nurse Practitioner Adult Health
DX: E03.9 Hypothyroidism, unspecified (principal); R53.83 Other fatigue; I10 Essential (primary) hypertension; D64.9 Anemia, unspecified; Z51.81 Encounter for therapeutic drug level monitoring; R79.89 Other specified abnormal findings of blood chemistry
CPT/HCPCS: 36415; 80053; 80061; 80175; 82306; 82607; 82746; 84402; 84403; 84443; 85027

== ENCOUNTER 2022-12-23 12:19 | Outpatient (CLI) | payer OTHER, SELFPAY ==
--- NOTE | ~2022-12-23 | XR_ITS ---
EXAMINATION: XR chest 2V DATE: 12/23/2022 12:45 INDICATION: Cough TECHNIQUE: PA and lateral views of the chest were obtained. COMPARISON: Chest radiograph dated 07/08/2021 FINDINGS: The lungs remain clear with no focal airspace opacities, pulmonary edema, pleural effusion or pneumot horax. The cardiomediastinal silhouette is normal. Old healed right fourth rib fracture. Interval C7- T1 anterior spinal fusion with interbody bone graft cage and plate and screw fixation. Again seen is a clinical aspect of an anterior plate and screw fixation for an earlier anterior spinal fusion in th e more cephalad cervical spine. There is also a new instrumented thoracolumbar posterior spinal fusio n with bilateral vertical kelly and pedicle screw fixations at T10 through at least L2 which at the cau ty margin of the field of imaging. IMPRESSION: 1. No acute cardiopulmonary disease. Reviewed, dictated and finalized at location L.
== END 2022-12-23 12:20 | disposition home or self-care (01) ==
LOC: ANHBWCIMG 12:20
PROVIDERS: PCP Family Medicine; Visit Provider Nurse Practitioner Adult Health
DX: R05.9 Cough, unspecified (principal)
CPT/HCPCS: 71046

== ENCOUNTER 2023-05-24 09:37 | Outpatient (CLI) | payer OTHER, SELFPAY ==
[2023-05-24 19:25] LABS: Alanine Aminotransferase 10 U/L (6-50); Albumin Level 4.5 g/dL (3.5-5.1); Alkaline Phosphatase 49 U/L (38-126); Anion Gap 5 mmol/L (8-16); Aspartate Amino Transferase 32 U/L (17-59); Blood Urea Nitrogen 18 mg/dL (9-20); Calcium 9.4 mg/dL (8.4-10.2); Carbon Dioxide 30 mmol/L (22-30); Chloride 105 mmol/L (98-107); Cholesterol 201 mg/dL (0-200); Estimated Glomerular Filt Rate 55; Glucose 99 mg/dL (65-110); HDL Direct 31 mg/dL; Potassium 4.5 mmol/L (3.4-5.0); Sodium 140 mmol/L (137-145); Triglycerides 117 mg/dL (<150)
[2023-05-24 19:36] LABS: LDL Cholesterol Direct 132 mg/dL
[2023-05-24 20:19] LABS: Basophils Percent Auto 0.3 % (0.2-1.2); Eosinophils Absolute Auto 0.2 K/mm3 (0-0.3); Eosinophils Percent Auto 1.7 % (0-4.4); Hematocrit 52.5 % (42.0-52.0); Hemoglobin 17.2 g/dL (14.0-18.0); Immature Granulocyte Absolute 0.04 K/mm3 (0.00-0.031); Immature Granulocyte Percent A 0.4 % (0-0.5); Lymphocytes Absolute Auto 3.48 K/mm3 (0.9-3.2); Lymphocytes Percent Auto 37.4 % (18.3-44.2); Mean Corpuscular HGB Conc 32.8 g/dl (32-36); Mean Corpuscular Hemoglobin 28.9 pg (26-34); Mean Corpuscular Volume 88.1 fl (80-100); Mean Platelet Volume 9.2 fl (7.4-10.4); Monocytes Absolute Auto 0.7 K/mm3 (0.1-0.6); Monocytes Percent Auto 7.2 % (2.6-8.5); Neutrophils Absolute Auto 4.9 K/mm3 (1.3-6.7); Platelet Count Result 208 k/mm3 (150-375); Red Blood Count 5.96 M/mm3 (4.6-6.20); Red Cell Distribution Width 12.6 % (11.5-14.5); White Blood Count 9.3 K/mm3 (4.5-10.0)
[2023-05-24 20:30] LABS: Vitamin D 25 Hydroxy 32.5 ng/mL
[2023-05-24 20:58] LABS: Hemoglobin A1C 5.6 % (<5.7)
[2023-05-24 22:34] LABS: Add Urine Microscopic? YES
[2023-05-24 22:35] LABS: Bacteria Urine Trace /hpf
[2023-05-24 22:36] LABS: Appearance Urine Clear (Clear); Color Urine Dark Yellow (Yellow); RBC Urine 0-2 /hpf (0-2); Specific Grav Ur >= 1.030 (1.001-1.035); Squamous Epithelial Cell Urine Rare /hpf (Few); WBC Urine 0-3 /hpf (0-3)
[2023-05-24 22:37] LABS: Bilirubin Urine 1+ (Negative); Blood Urine Negative (Negative); Glucose Urine UA Negative (Negative); Ketones Urine Trace mg/dL (Negative); Leukocyte Esterase Ur Negative LEU/UL (NEGATIVE); Nitrate Urine Negative (Negative); Protein Urine Trace mg/dL (Negative); Urobilinogen Urine 0.2 mg/dL (<2.0)
[2023-05-24 22:38] LABS: Mucus Urine Moderate /lpf
== END 2023-05-24 09:38 | disposition home or self-care (01) ==
LOC: ANHBWCLAB 09:43
PROVIDERS: PCP Family Medicine
DX: Z01.89 Encounter for other specified special examinations (principal); Z79.899 Other long term (current) drug therapy
CPT/HCPCS: 36415; 80053; 80061; 81001; 82306; 83036; 84443; 85025

== ENCOUNTER 2023-07-11 09:34 | Outpatient (CLI) | payer OTHER, SELFPAY ==
[2023-07-15 21:01] LABS: Testosterone Free 180.1 pg/mL (35.0-155.0); Testosterone Total 648 ng/dL (250-1100)
== END 2023-07-11 09:35 | disposition home or self-care (01) ==
LOC: ANHBWCLAB 09:35
PROVIDERS: PCP Family Medicine; Visit Provider Family Medicine
DX: R79.89 Other specified abnormal findings of blood chemistry (principal); E03.9 Hypothyroidism, unspecified; G89.4 Chronic pain syndrome; R53.83 Other fatigue; Z01.810 Encounter for preprocedural cardiovascular examination
CPT/HCPCS: 36415; 82607; 84402; 84403

== ENCOUNTER 2023-08-01 01:27 | Day surgery (SDC) | payer OTHER, SELFPAY ==
[2023-07-22 15:10] VITALS: BMI 25.9
[2023-08-01 12:14] VITALS: BP 143/100; PULSE 64; RESP 16; TEMP 36.5; O2SAT 100
--- NOTE | 2023-08-01 12:16 | WPDANESEPPF ---
Anes - Initial Pre Proc Eval Procedure: Operation Date: 08/01/23 13:00 Proposed Procedures p Screening Colonoscopy - Kali Gutierrez MD Date/Time: 08/01/23 12:16 Surgeon: Kali Gutierrez MD Pre Op Diagnosis: neoplasm screening Patient Data Age: 47 Gender: M Height: 1.78 m Weight: 82 kg Allergies Allergy/AdvReac Type Severity Reaction Status Date / Time morphine Allergy Severe Palpitation Verified 08/01/23 12:06 s codeine AdvReac Intermediate SEVERE Verified 08/01/23 12:06 NAUSEA AND VOMITING Home Medications Medication Instructions Recorded Confirmed Type fluticasone propionate 50 1 spray intranasal DAILY 06/04/19 08/01/23 History mcg/actuation nasal spray,suspension albuterol sulfate 90 mcg/actuation 1 inh inhalation Q4H PRN 04/03/20 08/01/23 Rx aerosol inhaler bronchospasm #18 grams meclizine 25 mg tablet 25 mg PO BID PRN dizziness #30 tabs 08/04/21 08/01/23 Rx methocarbamol 750 mg tablet 750 mg PO TID PRN Muscle Spasm 12/14/21 08/01/23 History tadalafil 20 mg tablet (Cialis) 20 mg PO DAILY PRN sexual activity 04/21/22 08/01/23 Rx #30 tabs rimegepant 75 mg disintegrating 75 mg PO EVERY OTHER DAY 07/01/22 08/01/23 History tablet (Nurtec ODT) hydrocortisone 2.5 % topical cream 1 applic topical BID PRN hemmoroid 09/06/22 08/01/23 Rx #30 grams mecobalamin (vitamin B12) 1,000 1,000 mcg sublingual DAILY #90 tabs 12/21/22 08/01/23 Rx mcg disintegrating tablet,sublingual nebulizer accessories ([place] #1 ea 12/21/22 08/01/23 Rx Choice Nebulizer Kit-Adult) ergocalciferol (vitamin D2) 1,250 50,000 unit PO MONTHLY #7 caps 02/02/23 08/01/23 Rx mcg (50,000 unit) capsule lamotrigine 100 mg tablet 100 mg PO DAILY 02/15/23 08/01/23 History valbenazine 40 mg capsule 40 mg PO DAILY 02/15/23 08/01/23 History (Ingrezza) ferrous sulfate 325 mg (65 mg 325 mg PO DAILY #90 tabs 04/05/23 08/01/23 Rx iron) tablet metoprolol succinate 25 mg See Rx Instructions .Route 05/02/23 08/01/23 Rx tablet,extended release 24 hr .COMPLEX #90 tabs thyroid (pork) 15 mg tablet 15 mg PO DAILY #90 tabs 05/02/23 08/01/23 Rx ([place] Thyroid) syringe with needle 3 mL 23 x 1 #2 ea 05/17/23 08/01/23 Rx ([facility]er-[facility]) omeprazole 20 mg capsule,delayed 20 mg PO DAILY #90 caps 06/20/23 08/01/23 Rx release testosterone cypionate 200 mg/mL 200 mg IM . every 2 weeks #10 mL 07/04/23 08/01/23 Rx intramuscular oil alprazolam 2 mg tablet 2 mg PO BID PRN anxiety #60 tabs 07/06/23 08/01/23 Rx albuterol sulfate 2.5 mg/3 mL 2.5 mg (3 mL) inhalation Q4-6H PRN 07/11/23 08/01/23 Rx (0.083 %) solution for nebulization bronchospasm #180 mL carisoprodol 250 mg tablet (Soma) 250 mg PO PRN PRN Pain 07/22/23 08/01/23 History fluoxetine 20 mg capsule 20 mg PO DAILY 07/22/23 08/01/23 History hydralazine 10 mg tablet 10 mg PO .prn PRN Hypertension 07/22/23 08/01/23 History pregabalin 150 mg capsule (Lyrica) 150 mg PO DAILY 07/22/23 08/01/23 History risperidone 0.5 mg tablet 0.5 mg PO BID 07/22/23 08/01/23 History Patient hx anesthesia problems: none Family hx anesthesia problems: none Results Review: All pre-operative results and documents have been reviewed as part of the pre-operative evaluation. [facility] Past Medical History Medical History (Updated 06/20/23 @ 15:26 by Elizabeth Leiva MA) Allergies Anxiety Asthma Bilateral hand pain Cervical vertebral fusion Degenerative joint disease of cervical and lumbar spine Depression Dysphagia Encounter for administration of vaccine GERD (gastroesophageal reflux disease) Headache, migraine History of anal fissures Hypertension Surgical History Surgical History History of back surgery History of lumbar fusion Family History Family History Mother Depression Family history of migraine headaches
[2023-08-01] MEDS: LACTATED RINGERS 1,000 ML 150 ML IV CONT (12:22)
--- NOTE | 2023-08-01 12:37 | PM.HPGS ---
History of Present Illness History of Present Illness Consent: Risks, benefits, and alternatives have been discussed and questions answered. Patient agrees to proceed with procedure. Chief complaint: neoplasm screening Narrative: Evelio Mario is a 47 year old male here for screening colonoscopy, had one about 8 years ago. Last year had lumbar spine surgery and since with difficult using restroom and noted blood in stool. Review of Systems Review of Systems: All systems reviewed & are unremarkable except as noted in HPI and below PMFSH Past Medical History Medical History (Updated 06/20/23 @ 15:26 by Elizabeth Leiva MA) Allergies Anxiety Asthma Bilateral hand pain Cervical vertebral fusion Degenerative joint disease of cervical and lumbar spine Depression Dysphagia Encounter for administration of vaccine GERD (gastroesophageal reflux disease) Headache, migraine History of anal fissures Hypertension Surgical History Surgical History History of back surgery History of lumbar fusion Family History Family History Mother Depression Family history of migraine headaches Asthma Family history of chronic obstructive pulmonary disease Grandparent Cerebrovascular accident Grandparent Lung disease Grandparent Dementia Alzheimer disease Grandparent Dementia Other Hypertension Social History Social History (Updated 02/15/23 @ 14:45 by MACARIO Lopez) Smoking status: Never smoker Second hand tobacco smoke exposure: No Alcohol intake: former Drinks per week: 3 Alcohol use details: none past year Substance use: current Substance use type: marijuana Other substance usage details: medical card Last use: edible 2 nights Lack of Transportation: YES Lack of Food: Often True Current Housing: I Do Not Have Housing Concerned About Future Housing: YES Difficulty Paying Gas/Electric Bills: YES Difficulty Paying for Meds: YES Currently Unemployed: No Education: Associate Degree Difficulty w/ Childcare or Family Care: No Living arrangements: alone Spiritual care concerns: No Meds Home Medications and Allergies Home Medications Medication Instructions Recorded Confirmed Type fluticasone propionate 50 1 spray intranasal DAILY 06/04/19 08/01/23 History mcg/actuation nasal spray,suspension albuterol sulfate 90 mcg/actuation 1 inh inhalation Q4H PRN 04/03/20 08/01/23 Rx aerosol inhaler bronchospasm #18 grams meclizine 25 mg tablet 25 mg PO BID PRN dizziness #30 tabs 08/04/21 08/01/23 Rx methocarbamol 750 mg tablet 750 mg PO TID PRN Muscle Spasm 12/14/21 08/01/23 History tadalafil 20 mg tablet (Cialis) 20 mg PO DAILY PRN sexual activity 04/21/22 08/01/23 Rx #30 tabs rimegepant 75 mg disintegrating 75 mg PO EVERY OTHER DAY 07/01/22 08/01/23 History tablet (Nurtec ODT) hydrocortisone 2.5 % topical cream 1 applic topical BID PRN hemmoroid 09/06/22 08/01/23 Rx #30 grams mecobalamin (vitamin B12) 1,000 1,000 mcg sublingual DAILY #90 tabs 12/21/22 08/01/23 Rx mcg disintegrating tablet,sublingual nebulizer accessories ([place] #1 ea 12/21/22 08/01/23 Rx Choice Nebulizer Kit-Adult) ergocalciferol (vitamin D2) 1,250 50,000 unit PO MONTHLY #7 caps 02/02/23 08/01/23 Rx mcg (50,000 unit) capsule lamotrigine 100 mg tablet 100 mg PO DAILY 02/15/23 08/01/23 History valbenazine 40 mg capsule 40 mg PO DAILY 02/15/23 08/01/23 History (Ingrezza) ferrous sulfate 325 mg (65 mg 325 mg PO DAILY #90 tabs 04/05/23 08/01/23 Rx iron) tablet metoprolol succinate 25 mg See Rx Instructions .Route 05/02/23 08/01/23 Rx tablet,extended release 24 hr .COMPLEX #90 tabs thyroid (pork) 15 mg tablet 15 mg PO DAILY #90 tabs 05/02/23 08/01/23 Rx ([place] Thyroid) syringe with needle 3 mL 23 x 1 #2 ea 05/17/23 08/01/23 Rx (BD Eclipse Luer-
[2023-08-01 12:51] VITALS: BP 109/70; PULSE 59; RESP 17; O2SAT 98
[2023-08-01 13:01] VITALS: BP 113/73; PULSE 61; RESP 16; O2SAT 98
[2023-08-01 13:11] VITALS: BP 137/79; PULSE 64; RESP 16; O2SAT 100
== END 2023-08-01 13:25 | disposition home or self-care (01) ==
PROVIDERS: PCP Family Medicine; Visit Provider Internal Medicine Gastroenterology
PROC: 0DJD8ZZ Inspection of Lower Intestinal Tract, Via Natural or Artificial Opening Endoscopic (ICD-10-PCS; CPT 45378; principal; 2023-08-01 13:00)
DX: Z12.11 Encounter for screening for malignant neoplasm of colon (principal); D12.5 Benign neoplasm of sigmoid colon; K64.8 Other hemorrhoids; I10 Essential (primary) hypertension; F41.9 Anxiety disorder, unspecified; J45.909 Unspecified asthma, uncomplicated; F32.A Depression, unspecified; K21.9 Gastro-esophageal reflux disease without esophagitis; F12.90 Cannabis use, unspecified, uncomplicated; Z98.1 Arthrodesis status; Z82.49 Family history of ischemic heart disease and other diseases of the circulatory system; Z79.51 Long term (current) use of inhaled steroids
CPT/HCPCS: 45380; 88305; J2704; J7120

== ENCOUNTER 2023-09-06 12:43 | Outpatient (CLI) | payer OTHER, SELFPAY ==
[2023-09-06 16:23] LABS: Creatine Kinase 183 U/L (55-170)
[2023-09-09 14:47] LABS: Aldolase 5.7 U/L (< OR = 8.1)
[2023-09-12 22:23] LABS: Anti Striated Muscle Antibody NEGATIVE (NEGATIVE)
[2023-09-16 14:43] LABS: Reference Lab Test Result Negative
[2023-09-17 16:03] LABS: Acetylchol Receptor Binding Ab <0.30 nmol/L
== END 2023-09-06 12:44 | disposition home or self-care (01) ==
LOC: ANHLAB 12:45
PROVIDERS: PCP Family Medicine; Visit Provider Student in an Organized Health Care Education/Training Program
DX: M62.81 Muscle weakness (generalized) (principal)
CPT/HCPCS: 36415; 82085; 82550; 86255

== ENCOUNTER 2023-12-20 07:35 | Outpatient (CLI) | payer OTHER, SELFPAY ==
--- NOTE | ~2023-12-20 | MR_ITS ---
MRI of the brain Clinical History: Right upper extremity weakness, dysphasia Technique: Axial and sagittal T1-weighted images were acquired. These were followed by axial T2-weigh sobeida, diffusion weighted, gradient, and FLAIR images. Findings: There is a focal FLAIR hyperintense area in the left cerebellum (axial FLAIR image 8). No o ther significant signal abnormality seen in the brain parenchyma. No acute infarct, intracranial hemo rrhage, or mass lesion. Ventricles and subarachnoid spaces are unremarkable. Orbits are unremarkable. Paranasal sinuses and m astoid air cells are clear. Major intracranial flow voids are intact. Sagittal midline structures are intact. IMPRESSION: Focal subtle FLAIR hyperintense lesion left cerebellum, nonspecific. Consider postcontrast imaging to further evaluate. Follow-up exam should also be considered to assess for stability/interval change o f the lesion. Reviewed, dictated and finalized at location . IMPRESSION: Focal subtle FLAIR hyperintense lesion left cerebellum, nonspecific. Consider p ostcontrast imaging to further evaluate. Follow-up exam should also be consider ed to assess for stability/interval change of the lesion.
--- NOTE | ~2023-12-20 | MR_ITS ---
MR cervical spine wo con Ordering provider: Tosha GodfreyMD History: 48 years Male with . R arm weakness . Comparison: None. Technique: MRI cervical spine without contrast. FINDINGS: CERVICAL SPINAL CORD/CRANIAL CERVICAL JUNCTION: Normal in signal and caliber. CERVICAL VERTEBRAL BODIES: Postoperative changes seen at the level of C3, C4, C5, C6 and C7. Normal h eight and alignment. Normal marrow signal. DISK SPACES: Normal. Bilateral facet joint disease at the level of C2-C3, C5-C6 and C6-C7. C2-C3: No stenosis. C3-C4: No stenosis. C4-C5: No stenosis. C5-C6: No stenosis. C6-C7: No stenosis. C7-T1: No stenosis. VISUALIZED PARASPINOUS SOFT TISSUES: Normal. IMPRESSION: 1. Postoperative changes extending from C3 to C7. 2. No definite significant abnormality seen. Reviewed, dictated and finalized at location A.
== END 2023-12-20 07:36 | disposition home or self-care (01) ==
LOC: ANHIMG 07:37
PROVIDERS: PCP Family Medicine; Visit Provider Student in an Organized Health Care Education/Training Program
DX: R53.1 Weakness (principal); R29.898 Other symptoms and signs involving the musculoskeletal system
CPT/HCPCS: 36415; 70551; 72141; 80053; 82306; 82607; 84153; 84402; 84403; 84439; 84443; 85027; G0103

== ENCOUNTER 2023-12-20 08:51 | Outpatient (CLI) | payer OTHER, SELFPAY ==
[2023-12-20 09:56] LABS: Hematocrit 51.8 % (42.0-52.0); Hemoglobin 17.3 g/dL (14.0-18.0); Mean Corpuscular HGB Conc 33.4 g/dl (32-36); Mean Corpuscular Hemoglobin 29.4 pg (26-34); Mean Corpuscular Volume 87.9 fl (80-100); Mean Platelet Volume 9.2 fl (7.4-10.4); Platelet Count Result 215 k/mm3 (150-375); Red Blood Count 5.89 M/mm3 (4.6-6.20); Red Cell Distribution Width 12.5 % (11.5-14.5); White Blood Count 8.8 K/mm3 (4.5-10.0)
[2023-12-20 10:19] LABS: Alanine Aminotransferase 16 U/L (6-50); Alkaline Phosphatase 41 U/L (38-126); Anion Gap 10 mmol/L (4-12); Aspartate Amino Transferase 24 U/L (17-59); Bilirubin,Total 1.5 mg/dL (0.2-1.3); Blood Urea Nitrogen 20 mg/dL (9-20); Calcium 9.7 mg/dL (8.4-10.2); Carbon Dioxide 31 mmol/L (22-30); Chloride 102 mmol/L (98-107); Estimated Glomerular Filt Rate > 60; Glucose 93 mg/dL (65-110); Sodium 143 mmol/L (137-145)
[2023-12-20 11:01] LABS: Free T4 Free Thyroxine 1.03 ng/mL (0.78-2.19)
[2023-12-20 11:24] LABS: Vitamin D 25 Hydroxy 42.5 ng/mL
[2023-12-24 09:48] LABS: Testosterone Free 123.6 pg/mL (35.0-155.0); Testosterone Total 768 ng/dL (250-1100)
== END 2023-12-20 08:52 | disposition home or self-care (01) ==
LOC: ANHLAB 08:54
PROVIDERS: PCP Family Medicine; Visit Provider Family Medicine
DX: D64.9 Anemia, unspecified (principal); E03.9 Hypothyroidism, unspecified; E61.1 Iron deficiency; F32.9 Major depressive disorder, single episode, unspecified; F41.9 Anxiety disorder, unspecified; G43.909 Migraine, unspecified, not intractable, without status migrainosus; G47.00 Insomnia, unspecified; G89.4 Chronic pain syndrome; J45.901 Unspecified asthma with (acute) exacerbation; J45.909 Unspecified asthma, uncomplicated; K21.9 Gastro-esophageal reflux disease without esophagitis; M43.22 Fusion of spine, cervical region; M54.50 Low back pain, unspecified; R20.0 Anesthesia of skin; R20.2 Paresthesia of skin; R45.1 Restlessness and agitation; R53.83 Other fatigue; R61 Generalized hyperhidrosis; R79.89 Other specified abnormal findings of blood chemistry
CPT/HCPCS: 36415; 80053; 82306; 82607; 84153; 84402; 84403; 84439; 84443; 85027; G0103

== ENCOUNTER 2024-01-18 13:53 | Outpatient (CLI) | payer OTHER, SELFPAY ==
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
== END 2024-01-18 13:54 | disposition home or self-care (01) ==
LOC: ANHNEURO 13:56
PROVIDERS: PCP Family Medicine; Visit Provider Student in an Organized Health Care Education/Training Program
DX: R20.0 Anesthesia of skin (principal); R20.2 Paresthesia of skin; R53.1 Weakness
CPT/HCPCS: 95886; 95913

== ENCOUNTER 2024-05-22 12:40 | Outpatient (CLI) | payer BC, SELFPAY ==
--- NOTE | ~2024-05-22 | MR_ITS ---
EXAMINATION: MR scapchet RT wo con DATE: 05/22/2024 13:22 INDICATION: Unspecified disorders of bone, shoulder. Right infrascapular pain radiating to the should er. TECHNIQUE: Magnetic resonance imaging (MRI) of the right scapula was performed without intravenous co ntrast. COMPARISON: Right shoulder MRI 09/14/2022 FINDINGS: Alignment is normal. No fracture. There is severe osteoarthritis of acromioclavicular joint . There is mild volume loss and mild fatty atrophy of supraspinatus muscle belly. IMPRESSION: 1. Severe osteoarthritis of acromioclavicular joint. Reviewed, dictated and finalized at location A. DEVELOPER
== END 2024-05-22 12:41 | disposition home or self-care (01) ==
PROVIDERS: PCP Family Medicine; Visit Provider Family Medicine
DX: M19.011 Primary osteoarthritis, right shoulder (principal); M89.8X1 Other specified disorders of bone, shoulder
CPT/HCPCS: 73218

== ENCOUNTER 2024-08-17 08:02 | Outpatient (CLI) | payer SELFPAY ==
--- OUTSIDE RECORDS SUMMARY | 2024-08-17 08:05 | XMS_ITS | Encounter Summary ---
Author Organization [facility] Health Address [address] [place] [address] Care Team Providers Care Administrative Project Coordinator Name Role Phone Juvenal Yang MD Primary Care Provider [phone] Reason for Visit * Reason Onset Date Comments Reschedule Appointment 02/24/2023 Encounter Details Date Type Department Care Team (Late st Contact Info) Description 02/24/2023 Telephone [facility] - Centralized Scheduling [address] [place] [address] Abraham Mccoy MD [facility] [place] [phone] Reschedule Appointment Social History Tobacco Use Types Packs/Day Years Used Date Smoking Tobacco: Never Smokeless Tobacco: Never Alcohol Use Standard Drinks/Week Comments Yes 0 (1 standard drink = 0.6 oz pur e alcohol) PHQ-2 Answer Date Recorded PHQ2 TOTAL SCORE 6 08/10/2022 Sex and Gender Information Value Date Recorded Sex Assigned at Male 01/04/2022 1:38 PM CDT Gender Identity Male 01/04/2022 1:38 PM CDT Sexual Orientation Straight 01/04/2022 1: 38 PM CDT documented as of this encounter Miscellaneous Notes * Telephone Encounter - Brandy Coates - 02/24/2023 11:13 AM CDT David's 08/05/23 Botox appointment has been bumped. Please call David to reschedule his appointment. documented in this encounter Plan of Treatment Upcoming Encounters Date Type Department Care Team (Late st Contact Info) Description 09/24/2024 8:00 AM CDT Office Visit [facility] - Neurology [address] [place] [address], [place] [address] Doreen Schreiber, GRAPE PRUNER-SPLITTER OPERATOR [address] [place] [address] [place] [phone] 10/10/2024 11:00 AM CDT Procedure visit [facility] - Neurology [address] [place] [address], [place] [phone] Nahomy Munroe, [address] [place] [phone] documented as of this encounter Visit Diagnoses Not on filedocumented in this encounter Additional Health Concerns Infection Onset Date Last Indicated Resolved Time COVID-19 Under Investigation 06/22/2023 06/22/2023 06/22/2023 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
--- OUTSIDE RECORDS SUMMARY | 2024-08-17 08:05 | XMS_ITS | Encounter Summary ---
Author Organization [facility] Address [address] [facility] [place] [address] Care Team Providers Care Progressive Care Unit Registered Nurse Name Role Phone Juvenal Yang MD Primary Care Provider [phone] Reason for Visit * Reason Onset Date Comments Appointment 03/28/2024 Encounter Details Date Type Department Care Team (Late st Contact Info) Description 03/28/2024 Telephone [facility] - Centralized Scheduling [address] [place] [phone] Nahomy Munroe, DO [address] [place] [address] Appointment Social History Tobacco Use Types Packs/Day [...] encounter Miscellaneous Notes * Telephone Encounter - Brannon Mueller - 03/28/2024 1:10 PM CST Patient would like help to reschedule his Botox appointment. 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 documented in this encounter Plan of Treatment Upcoming Encounters Date Type Department Care Team (Late st Contact Info) Description 09/24/2024 8:00 AM CDT Office Visit [facility] - Neurology [address] [place] [address], [place] [address] Doreen Schreiber, SCALE EXPERT-INSULATION ENGINEMAN [facility] [facility] [address] [place] [phone] 10/10/2024 11:00 AM CDT Procedure visit [facility] - Neurology [address] [place] [phone] Nahomy Munroe, DO [address] [place] [phone] documented as of this encounter Visit Diagnoses Not on filedocumented in this encounter Care Teams Progressive Care Unit Registered Nurse Relationship Specialty Start Date End Date Juvenal Yang MD [address] [place] [phone] PCP - General 01/04/22 documented as of this encounter
--- OUTSIDE RECORDS SUMMARY | 2024-08-17 08:05 | XMS_ITS | Clinical Summary ---
Author Organization [facility] Address [address] [place] [address] Care Team Providers Care Equal Opportunity Assistant Name Role Phone Juvenal Yang MD Primary Care Provider [phone] Source Comments [facility],non-owned Affiliates and Associated Physician Practices is amultiple site organization consisting of ambulatory clinics and hospital sitesin [place], [place], [place] and [place]. This disclosure is being madepursuant to the Care Everywhere program and may not contain all information available regarding this patient. Last updated 18.[facility] Allergies Active Allergy Reactions Criticality Noted Date Comments Codeine Nausea and/or Vomiting Medium 05/24/2022 Morphine Palpitations High 06/12/2010 Medications * Be aware that medications may not be up to date on this document. Alwaysverify current medications with the patient. Medication Sig Dispensed Refills Start Date End Date Status ARMOUR THYROID PO Take 1 tablet by mouth once daily Active ferrous sulfate 325 (65 FE) MG tablet Take 1 (one) tablet by mouth once daily Active meclizine (Antivert) 25 MG tablet Take 1 (one) tablet by mouth 3 times daily as needed for Dizziness Active omeprazole (PriLOSEC) 20 MG capsule Take 1 (one) capsule by mouth daily before breakfast Active hydrALAZINE (Apresoline) 25 MG tablet 25 MG ORALLY THREE TIMES A DAY TAKE NEEDED WHEN BLOOD PRESSURE IS GREATER THAN 150/100 MMHG 02/16/2022 Active vitamin D, ergocalciferol, (Drisdol) 1.25 MG (17242 UT) capsule Take 1 (one) capsule by mouth every 30 days 01/20/2022 Active azelastine (Astelin) 0.1 % nasal spray Sunset 1 (one) spray into the nose 2 times daily 12/24/2021 Active pregabalin (Lyrica) 150 MG capsule Take 1 (one) capsule by mouth once daily 02/17/2022 Active tadalafil (Cialis) 20 MG tablet TAKE 1 TABLET BY MOUTH ONCE DAILY NEEDED FOR SEXUAL ACTIVITY ADMINISTER APPROXIAMETLY 30 MINUTES BEFORE SEXUAL ACTIVITY. DO NOT USE MORE THAN 1 DOSE PER 24 HOURS 09/22/2021 Active ARIPiprazole (Abilify) 5 MG tablet 02/11/2022 Active ALBUTEROL SULFATE IN Inhale by mouth as needed Active testosterone cypionate (Depo-Testosteron e) 200 MG/ML injection INJECT 1 ML (CC) INTRAMUSCULARLY EVERY TWO WEEKS 11/02/2021 Active loratadine (Claritin) 10 MG tablet Take 1 (one) tablet by mouth once daily Active fluticasone diskus (Flovent Diskus) 50 MCG/ACT inhaler Inhale 1 (one) puff by mouth 2 times daily Active lamoTRIgine (LaMICtal) 100 MG tablet Take 1 (one) tablet by mouth once daily 04/15/2023 Active ALPRAZolam (Xanax) 2 MG tablet Take 1 (one) tablet by mouth 2 times daily as needed 08/02/2023 Active onabotulinumtoxin A (BOTOX) 100 units injectionIndicati ons:Migraine Inject 155 (one hundred fifty five) Units into muscle Every 90 days Reasons: Migraine Headache 2 Each 1 08/05/2023 Active benztropine (Cogentin) 0.5 MG tablet Take 1 (one) tablet by mouth 2 times daily 09/05/2023 Active FLUoxetine (PROzac) 20 MG capsule TAKE 1 CAPSULE BY MOUTH EVERY DAY IN THE MORNING 09/05/2023 Active rimegepant (Nurtec) 75 MG tabletIndications :Intractable chronic migraine without aura and without status migrainosus,Migra ine with aura and without status migrainosus, not intractable,Chron ic daily headache,Post concussive syndrome Take 75 mg by mouth every 2 days 16 tablet 11 09/29/2023 Active tiZANidine (Zanaflex) 4 MG tablet Take 1 (one) tablet by mouth at bedtime 09/01/2023 Active hydrOXYzine HCl (Atarax) 25 MG tablet Take 1 (one) tablet by mouth 3 times daily as needed 11/24/2023 Active metoprolol succinate XL 24hr (Toprol XL) 25 MG tablet Take 1 (one) tablet by mouth once daily 10/28/2023 Active B-D 3CC LUER-AMARILIS SYR 23GX1 23G X 1 3 ML MISC USE ONE SYRINGE TO INJECT TESTOSTERONE INTRAMUSCULARLY EVERY 2 WEEKS 12/11/2023 Active onabotulinumtoxin A (BOTOX) 100 units injectionIndicati ons:Migraine Inject 155 (one hundred fifty five) Units into muscle Every 90 days Reasons: Migraine Headache 2 Each 1 12/19/2023 Active amLODIPine (Norvasc) 5 MG tablet Take 1 (one) tablet by mouth once daily Active ondansetron, disintegrating, (Zofran ODT) 4 MG tabletIndications :Post concussive syndrome,Migraine with aura and without status migrainosus, not intractable TAKE 1 TABLET BY MOUTH ONCE DAILY NEEDED FOR NAUSEA/VOMITING ALLOW TO DISSOLVE ON THE TONGUE 10 tablet 1 06/28/2024 Active Active Problems Problem Noted Date Diagnosed Date Atypical facial pain 08/05/2023 08/05/2023 T10 spinal cord injury 08/18/2022 Elevated CK 06/30/2017 Tension type headache 06/30/2017 Anxiety state 04/21/2016 Mild intermittent asthma without complication Hypotestosteronism 03/15/2016 Post concussive syndrome 03/15/2016 Anxiety and depression 10/30/2014 HNP (herniated nucleus pulposus), cervical 10/30 Spinal stenosis in cervical region 10/30/2014 Migraines 09/17/2014 02/04/2023 Bipolar 1 disorder, depressed 09/17/2014 Essential (primary) hypertension 07/08/2010 Nontoxic single thyroid nodule 07/08/2010 Hyperhidrosis 07/08/2010 Thyroid nodule 07/08/2010 Essential hypertension, benign 07/08/2010 Encounters Date Type Department Care Team Description 07/02/2024 Telephone [facility] - [facility]rology [address] [facility], [facility] [place] [address] Doreen Schreiber APRN-CHUCHO Medication Prior Auth Request ([facility] renewal) 06/28/2024 Telephone [facility] - Neurology [address] [place] [phone] Doreen Schreiber APRN-CHUCHO Medication Prior Auth Request ([facility] renewal) 06/28/2024 Refill [facility] - Neurology [address] [place] [address] [phone] Doreen Schreiber APRN-STRIPPER AND TAPER Refill Request from Last 3 Months Immunizations Name Administration Dates Next Due INFLUENZA VACCINE, TRIV. (AF LURIA, FLUZONE TRIVALENT; 6MO+) (IIV3) 03/14/2016 FLU, HISTORIC VACCINE 04/09/2013 INFLUENZA VACCINE, QUADR. (A FLURIA, FLUZONE QUADRIVALENT; 6MO+) (IIV4) 04/09/2013 INFLUENZA VACCINE, QUADR. (F LUZONE; FLULAVAL; FLUARIX; AFLURIA QUADRIVALENT; 6MO+), 0.5 ML (IIV4) 02/17/2016,03/20/2015 TDAP, HISTORIC VACCINE 06/20/2023 Family History Medical History Relation Name Comments Cancer Maternal Grandfather Hypertension Maternal Grandfather Hypertension Maternal Grandmother Allergy (Severe) Mother Heart Disease Mother mvp CVA Paternal Grandfather Diabetes Paternal Grandfather Hypertension Paternal Grandfather Hypertension Paternal Grandmother Cancer - Skin, Melanoma Neg Hx Cancer - Skin, Non Melanoma Neg Hx Eczema Neg Hx Hemophilia Neg Hx High Cholesterol Neg Hx Kidney Disease Neg Hx Psoriasis Neg Hx Rashes/Skin Problems Neg Hx Thyroid Disease Neg Hx Relation Name Status Comments Maternal Grandfather Maternal Grandmother Mother Paternal Grandfather Paternal Grandmother Social History Tobacco Use Types Packs/Day Years Used Date Smoking Tobacco: Never Smokeless Tobacco: Never Tobacco Cessation:Counseling Given: Not Answered Alcohol Use Standard Drinks/Week Comments Yes 0 (1 standard drink = 0.6 oz pur e alcohol) PHQ-2 Answer Date Recorded PHQ2 TOTAL SCORE 6 08/10/2022 Sex and Gender Information Value Date Recorded Sex Assigned at Male 01/04/2022 1:38 PM CDT Gender Identity Male 01/04/2022 1:38 PM CDT Sexual Orientation Straight 01/04/2022 1: 38 PM CDT Last Filed Vital Signs Vital Sign Reading Time Taken Comments Blood Pressure 140/92 04/09/2024 12:26 PM [employer] Pulse 79 04/09/2024 12:26 PM [employer] Temperature 36 C (96.8 F) 09/29/2023 1:07 PM CDT Respiratory Rate 18 06/22/2023 6:29 PM [employer] Oxygen Saturation 99% 12/19/2023 8:09 AM CDT Inhaled Oxygen Concentration - - Weight 87.1 kg (192 lb) 04/09/2024 12:26 PM [employer] Height 177.8 cm (5' 10 ) 12/19/2023 8:09 AM CDT Body Mass Index 27.55 12/19/2023 8:09 AM CDT Plan of Treatment Upcoming Encounters Date Type Department Care Team (Late st Contact Info) Description 09/24/2024 8:00 AM CDT Office Visit [facility] - Neurology [address] [place] [phone] Doreen Schreiber, SPORTING GOODS SALESPERSON-STRIPPER AND TAPER [address] [place] [address] [place] [phone] 10/10/2024 11:00 AM CDT Procedure visit [facility]rology [address] [place] [phone] Nahomy Munroe, DO [address] [place] [phone] Health Maintenance Due Date Last Done Comments COLOGUARD (AGES 45-75) - COLON CA SCREENING 1976 COLON MONITORING 1976 COLONOSCOPY - COLON CA SCREENING 1976 CT COLONOGRAPHY - COLON CA SCREENING 1976 Colorectal Cancer Screening 1976 FIT - COLON CA SCREENING 1976 FLEX SIG - COLON CA SCREENING 1976 LIPID TESTING 1976 HIV SCREENING 12/17/1991 HEPATITIS C SCREENING 12/12/1994 HEPATITIS B VACCINE (1 of 3 - 19+ 3-dose series) 12/17/1995 PNEUMOCOCCAL VACCINE (1 of 2 - PCV) 12/17/1995 COVID-19 VACCINE (4 - season) 2024 06/21/2023, 06/10/2020, 05/13/2020 INFLUENZA VACCINE (Season Ended) 2025 03/14/2016, 02/17/2016, 03/20/2015, Additional history exists SCREENING FOR DIABETES 06/22/2026 06/22/2023, 2010 ZOSTER VACCINE (1 of 2) 2026 DTAP/TDAP/TD VACCINES (2 - Td or Tdap) 06/20/2033 06/20/2023 HIB VACCINE Aged Out No longer eligi ble based on patient's age to complete this topic HPV VACCINE Aged Out No longer eligi ble based on patient's age to complete this topic MENINGOCOCCAL (Group B) VACCINE SHARED DECISION-MAKING Aged Out No longer eligible based on patient's age to complete this topic MENINGOCOCCAL GROUPS A/C/Y/W VACCINE Aged Out No longer eligible based on patient's age to complete this topic Procedures Procedure Name Priority Date/Time Associated Diagnosis Comments COMPREHENSIVE METABOLIC PANEL STAT 06/22/2023 2:18 PM [employer] from Last 3 Months or Most Recently Relevant to Health Maintenance Results * (ABNORMAL) COMPREHENSIVE METABOLIC PANEL (06/22/2023 2:18 PM [employer]) Glucose 99 70 - 105 mg/dL 06/22/2023 2:44 PM [facility] Sodium 141 136 - 145 mmol/L 06/22/2023 2:44 PM [facility] [employer] [facility] Potassium 4.3 3.5 - 5.1 mmol/L 06/22/2023 2:44 PM [facility] [employer] Chloride 109(H) 98 - 107 mmol/L 06/22/2023 2:44 PM [facility] [employer] [facility] CO2 25 22 - 29 mmol/L 06/22/2023 2:44 PM [facility] [employer] [facility] Calcium 8.5 8.4 - 10.4 mg/dL 06/22/2023 2:44 PM [facility] [employer] [employer] [facility] Anion Gap 7 6 - 16 mmol/L 06/22/2023 2:44 PM [facility] [employer] BUN 13 5.3 - 18.7 mg/dL 06/22/2023 2:44 PM [facility] Creatinine 1.26(H) 0.72 - 1.25 mg/dL 06/22/2023 2:44 PM [facility] Alkaline Phosphatase 45 40 - 150 U/L 06/22/2023 2:44 PM [facility] ALT 6 0 - 55 U/L 06/22/2023 2:44 PM [facility] AST 11 5 - 34 U/L 06/22/2023 2:44 PM [facility] Protein Total 6.8 6.4 - 8.3 gm/dL 06/22/2023 2:44 PM [facility] Albumin 4.0 3.4 - 5.0 gm/dL 06/22/2023 2:44 PM [facility] Bilirubin Total 0.7 0.2 - 1.2 mg/dL 06/22/2023 2:44 PM [facility] eGFR by CKD-EPI 71(L) >=90 mL/min/1.7 3 m2 06/22/2023 2:44 PM [facility] Blood BLOOD SPECIMEN / Unknown Venipuncture / Unknown 06/22/2023 2:18 PM [employer] 06/22/2023 2:26 PM [employer] [facility] Severino Organization Address City/State/ZIP Co de Phone Number [facility] [address] [place] [address] from Last 3 Months or Most Recently Relevant to Health Maintenance Care Teams Equal Opportunity Assistant Relationship Specialty Start Date End Date Juvenal Yang MD [address] [place] [phone] PCP - General 01/04/22
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
--- OUTSIDE RECORDS SUMMARY | 2024-08-17 08:05 | XMS_ITS | Referral Summary ---
Author Organization [facility] Address [address] [place] [address] Care Team Providers Care Laborer Tan House Name Role Phone Juvenal Yang MD Primary Care Provider [phone] Encounters Date Type Department Care Team Description 08/09/2024 7:00 AM CDT Therapy [facility] [place] [address] Janelle Al, PT Other specified disorders of bone, shoulder (Primary Dx); Muscle strain of right shoulder, subsequent encounter 08/02/2024 7:00 AM CDT Therapy [facility] [place] [address] Janelle Al, PT Other specified disorders of bone, shoulder (Primary Dx); Muscle strain of right shoulder, subsequent encounter 07/25/2024 7:00 AM CDT Therapy [facility] [place] [address] Thierno Meyers, PT Other specified disorders of bone, shoulder (Primary Dx); Muscle strain of right shoulder, subsequent encounter 07/11/2024 1:45 PM TEACHER MUSIC Therapy [facility] [place] [address] Thierno Meyers, PT Other specified disorders of bone, shoulder (Primary Dx); Muscle strain of right shoulder, subsequent encounter 07/05/2024 9:00 AM TEACHER MUSIC Therapy [facility] [place] [address] Thierno Meyers, PT Other specified disorders of bone, shoulder (Primary Dx) 07/02/2024 Telephone [facility] [address] [place] [address] LaloDamaso chavezDO 06/27/2024 7:00 AM TEACHER MUSIC Therapy [facility] Physical [facility] [place] [address] Thierno Meyers, PT Other specified disorders of bone, shoulder (Primary Dx); Muscle strain of right shoulder, subsequent encounter 06/15/2024 7:15 AM TEACHER MUSIC Therapy [facility] Physical [facility] [place] [address] Thierno Meyers, PT Other specified disorders of bone, shoulder (Primary Dx); Muscle strain of right shoulder, subsequent encounter; Chronic right shoulder pain 05/31/2024 Plan of Care Documentation [facility] Physical [facility] [place] [address] 05/31/2024 9:15 AM TEACHER MUSIC Therapy [facility] Christoph [place] [address] Janelle Al, PT Chronic right shoulder pain (Primary Dx); Other specified disorders of bone, shoulder; Muscle strain of right shoulder, subsequent encounter 05/22/2024 Ancillary Procedure [facility] Outside Films from Last 3 Months Allergies Active Allergy Reactions Criticality Noted Date [...] DOSE PER 24 HOURS 09/23/19 22 Active [place] Thyroid 15 mg tablet 12/19/19 22 Active [...] 09/28/2022 Essential hypertension, benign 07/08/2010 0 09/28/2022 Immunizations Immunization Administration Dates Next Due Influenza, Quadrivalent, Spl it, Preservative Free, Intramuscular 02/17/2016,03/20/2015 Influenza, Split 04/09/2013 Social History Tobacco Use Types Packs/Day Years [...] on file Legal Sex Male 12:03 PM TEACHER MUSIC Gender Identity Male 12/17/2021 11:46 PM CDT Sexual Orientation Not on file Last Filed Vital Signs Vital Sign Reading [...] 01/28/2023 2:09 PM CDT Plan of Treatment Not on file Procedures Procedure Name Priority Date/Time Associated Diagnosis Comments MRI TRANSFER OF OUTSIDE FILMS Routine 05/22/2024 12:00 AM TEACHER MUSIC from Last 3 Months Results * MRI Outside Reference (05/22/2024 12:00 AM TEACHER MUSIC) Narrative [facility] - 07/02/2024 3:23 PM TEACHER MUSIC This order has been auto-finalized and does not contain a result. us Provider Transcribed Order IMG MRI PROCEDURES Fi nal Result [facility] from Last 3 Months Insurance [facility] INDIVIDUAL ASSURANCE BLUE ACCESS OOS Care Teams Laborer Tan House Relationship Specialty Start Date End Date Juvenal Yang MD PCP - General Family Practice 12/18/21
--- OUTSIDE RECORDS SUMMARY | 2024-08-17 08:05 | XMS_ITS | Clinical Summary ---
Author Organization [facility] Address [facility] [place] [address] Care Team Providers Care Director Of Federal Sales Name Role Phone Unavailable Primary Care Provider Unavailabl e Social History Tobacco Use Types Packs/Day Years Used Date Smoking Tobacco: Never Assessed Sex and Gender Information Value Date Recorded Sex Assigned at Not on file Legal Sex Male 5:50 PM CDT Gender Identity Not on file Sexual Orientation Not on file Plan of Treatment Health Maintenance Due Date Last Done Comments Colorectal Cancer Screening Colonoscopy (10 Years) 1976 Annual Physical 12/17/1979 Hepatitis C 1994 DTaP, Tdap and Td Vaccines ( 1 - Tdap) 12/17/1995 Hepatitis B Vaccines (1 of 3 - 19+ 3-dose series) 12/17/1995 COVID-19 Vaccine (2023-2 5 season) 2024 Meningococcal B Vaccine Aged Out No l onger eligible based on patient's age to complete this topic Meningococcal Vaccine Aged Out No lemuel kandi eligible based on patient's age to complete this topic Pneumococcal Vaccine: Pediat rics (0 to 5 Years) and At-Risk Patients (6 to 64 Years) Aged Out No longer eligible b ased on patient's age to complete this topic RSV Immunizations Under 20 Months Aged Out No longer eligible based on patient's age to complete this topic
--- OUTSIDE RECORDS SUMMARY | 2024-08-17 08:06 | XMS_ITS | Encounter Summary ---
Author Organization [facility] Address 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
--- OUTSIDE RECORDS SUMMARY | 2024-08-17 08:06 | XMS_ITS | Encounter Summary ---
Author Organization [facility] Address 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
--- OUTSIDE RECORDS SUMMARY | 2024-08-17 08:06 | XMS_ITS | Clinical Summary ---
Author Organization [facility] Administrative Offices Address [address] [place] [address] Care Team Providers Care Patient Registration Clerk Name Role Phone Unavailable Primary Care Provider Unavailabl e Allergies Active Allergy Reactions Criticality Noted Date Comments Morphine Palpitations Low 12/28/2012 Medications multivitamin (DAILY-FELIPE) Oral tablet Take 1 Tab by mouth daily. Active tadalafil (CIALIS) 20 mg tabletIndication s:Erectile dysfunction due to diseases classified elsewhere Take 1 Tablet (20 mg) by mouth 1 time daily as needed for Erectile Dysfunction. 4 Tablet 3 6 Active ipratropium bromide (ATROVENT) 42 mcg (0.06 %) [place], Non-AerosolIndic ations:Chronic nonseasonal allergic rhinitis due to other allergen Administer 2 Sprays in each nostril 2 times daily with meals. 15 mL 11 7 Active mometasone (ASMANEX TWISTHALER) 220 mcg Aerosol Powdr Breath Activated Take 1 Puff by inhalation 2 times daily. 3 Inhaler 3 8 Active OTHERIndications :HNP (herniated nucleus pulposus), cervical,Chronic bilateral low back pain with bilateral sciatica Message therapy for an hour 3 times a week for 4 weeks. 1 Units 1 8 Active busPIRone (BUSPAR) 10 mg tabletIndication s:Anxiety state Take 1 Tablet (10 mg) by mouth 3 times daily. 90 Tablet 11 8 Active naproxen sodium (ALEVE) 220 mg CapsuleIndicatio ns:HNP (herniated nucleus pulposus), cervical,Spinal stenosis in cervical region Take 1 Capsule (220 mg) by mouth 2 times daily. 2 Capsule 8 Active diazePAM (VALIUM) 5 mg tabletIndication s:HNP (herniated nucleus pulposus), cervical,Bilater al sciatica,Arthral sade, unspecified joint TAKE 1 TABLET BY MOUTH EVERY 12 HOURS NEEDED FOR ANXIETY OR SPASM. 60 Tablet 1 9 Active sertraline (ZOLOFT) 100 mg tabletIndication s:Anxiety state TAKE 2 TABLETS BY MOUTH ONCE DAILY 60 Tablet 5 9 Active nortriptyline (PAMELOR) 10 mg capsuleIndicatio ns:Sleep disturbance,Anxi ety and depression TAKE 4 CAPSULES BY MOUTH AT BEDTIME 120 Capsule 1 9 Active lisinopriL (PRINIVIL) 20 mg tablet Take 1 tablet by mouth once daily 30 Tablet 0 Active HYDROCHLOROTHIAZ BAO 25 mg tablet TAKE 1 TABLET BY MOUTH ONCE DAILY IN THE MORNING 30 Tablet 0 Active Active Problems Problem Noted Date Diagnosed Date Elevated CK 06/30/2017 Tension headache 06/30/2017 Mild intermittent asthma without complication Anxiety state 04/21/2016 Hypotestosteronism 03/15/2016 Post concussive syndrome 03/15/2016 HTN (hypertension), benign 10/30/2014 Anxiety and depression 10/30/2014 HNP (herniated nucleus pulposus), cervical 10/30 Spinal stenosis in cervical region 10/30/2014 Immunizations Immunization Administration Dates Next Due Influenza Seasonal Unspecified Formulation IM Family History Medical History Relation Name Comments Alzheimer's Disease Maternal Grandfather Stroke Maternal Grandmother COPD Mother Cancer Paternal Grandfather Alzheimer's Disease Paternal Grandmother Relation Name Status Comments Father Maternal Grandfather Maternal Grandmother Mother Alive Paternal Grandfather Paternal Grandmother Social History Tobacco Use Types Packs/Day Years Used Date Smoking Tobacco: Never Smokeless Tobacco: Never Tobacco Cessation:Counseling Given: No Alcohol Use Standard Drinks/Week Comments Yes 0 (1 standard drink = 0.6 oz pur e alcohol) socially Sex and Gender Information Value Date Recorded Sex Assigned at Not on file 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 Gender Identity Not on file Sexual Orientation Not on file Occupation Industry Job Start Date Job End Date Not on file Not on file Not on file Not on file Last Filed Vital Signs Vital Sign Reading Time Taken Comments Blood Pressure 136/80 12/21/2018 9:47 AM CDT Pulse 80 12/21/2018 9:47 AM CDT Temperature 36.7 C (98.1 F) 12/21/2018 9:47 AM CDT Respiratory Rate 14 09/28/2017 3:56 PM CDT Oxygen Saturation 100% 12/21/2018 9:47 AM CDT Inhaled Oxygen Concentration - - Weight 83.9 kg (185 lb) 12/21/2018 9:47 AM CDT Height 177.8 cm (5' 10 ) 12/21/2018 9:47 AM CDT Body Mass Index 26.54 12/21/2018 9:47 AM CDT Plan of Treatment Health Maintenance Due Date Last Done Comments DTAP/TDAP/TD VACCINES (1 - Tdap) 12/17/1995 HEPATITIS B VACCINES (1 of 3 - 19+ 3-dose series) 12/17/1995 COLORECTAL SCREENING 2021 Colorectal Cancer Screening 2021 FIT-DNA Q 3 years 2021 FIT/FOBT Q 1 year 2021 Flex Sig/CT Colonography Q 5 years 2021 INFLUENZA VACCINE (#1) 2023 6, 02/17/2016, 03/20/2015 Medical Devices Implanted Type Area Roll Off Driver Device Identifier Shelf Expiration Date Model / Serial / Lot Allgrft Spacer Acf 7mm [id number] - [id number] Implanted:Qty : 1 on 01/05/2013 by Alejandro See MD at [facility] Bone N/A: Spine Cervical Anterior MUSCULOSKELETAL TRANSPLANT FOU 04/16/2017 [id number] / [id number] / Vertigraft 7.75x9.22 Mm Vg2 Cervical T79p Implanted:Qty : 1 on 10/28/2014 by Tavares Resendez MD at [facility] Bone N/A: Spine Cervical Anterior LIFENET 07/14/2019 [id number] / [id number] / Plate [place] 2lvl 38mm Ti 1868-02-038 - [id number] Implanted:Qty : 1 on 10/28/2014 by Tavares Resendez MD at [facility] Plate N/A: Spine Cervical Anterior J&J- DEPUY SPINE INC 1867-06-0 38 / / Description:load no. 46 ster ilized 09/28/14 Screw Vari [place] Lrg-D 14mm 1867-54-014 - [id number] Implanted:Qty : 2 on 10/28/2014 by Tavares Resendez MD at [facility] Screw N/A: Spine Cervical Anterior J&J- DEPUY SPINE [employer] 54-0 14 / / Description:load no. 46 ster ilized 09/28/[address] [place] [address] 14mm 1867-52-014 - [id number] Implanted:Qty : 3 on 10/28/2014 by Tavares Resendez MD at [facility] Screw N/A: Spine Cervical Anterior J&J- DEPU[employer] 50-0 14 / / Description:load no. 46 ster ilized 09/28/14 Sealant Floseal W/ Adptr 10ml [id number] - [id number] Implanted:Qty : 1 on 01/05/2013 by Alejandro See MD at [facility] Sealant N/A: Spine Cervical Anterior BRAGA- ScreachTV 02/12/2014 [id number] / / [id number] Sealant Floseal W/ Adptr 10ml [id number] - [id number] Implanted:Qty : 1 on 10/28/2014 by Tavares Resendez MD at [facility] Sealant N/A: Spine Cervical Anterior BRAGA- ScreachTV 01/14/2016 [id number] / / [id number] Explanted Type Area Roll Off Driver Device Identifier Shelf Expiration Date Model / Serial / Lot Plate Cslp Cherelle Ang 25mm 450.152 - [id number] Implanted:Qty : 1 on 01/05/2013 at [facility] Explanted:Qty : 1 on 10/28/2014 by Tavares Resendez MD at [facility] Plate N/A: Spine Cervical Anterior SYNTHES-STRATEC- SPINAL 450.152 / / Description:LOAD 36JANUARY 01, 2013 Screw Xpnhead C Spine 4.63y22cv 487.056 - [id number] Implanted:Qty : 4 on 01/05/2013 at [facility] Explanted:Qty : 4 on 10/28/2014 by Tavares Resendez MD at [facility] Screw SYNTHES STRATEC 487.056 / / Description:LOAD 36, JANUARY 01, 2013 Screw Lock C Spine 1.8mm 497.78 - [id number] Implanted:Qty : 4 on 01/05/2013 by Alejandro See MD at [facility] Explanted:Qty : 4 on 10/28/2014 by Tavares Resendez MD at [facility] Screw SYNTHES-STRATEC- SPINAL 497.78 / / Advance Directives For more information, please contact: [phone] * Full Code (Latest Code Status on File) Date Activated Date Inactivated Comments 10/28/2014 2:27 PM 10/30/2014 2:40 PM * Full Code Date Activated Date Inactivated Comments 10/28/2014 7:02 AM 10/28/2014 2:27 PM * Full Code Date Activated Date Inactivated Comments 10/28/2014 5:40 AM 10/28/2014 7:02 AM * Full Code Date Activated Date Inactivated Comments 01/05/2013 11:32 AM 01/06/2013 3:21 PM * Full Code Date Activated Date Inactivated Comments 01/05/2013 11:32 AM 01/05/2013 11:32 AM
--- OUTSIDE RECORDS SUMMARY | 2024-08-17 08:06 | XMS_ITS | Encounter Summary ---
Author Organization [facility] Address 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 Gender Identity Not on file Sexual Orientation Not on file documented as of this encounter Plan of Treatment Not on file documented as of this encounter Procedures Procedure Name Priority Date/Time Associated Diagnosis Comments PT AND APTT Routine 09/18/2004 2:42 PM CDT POC, BLOOD GASES Routine 09/18/2004 2:41 PM CDT LACTIC ACID Routine 09/18/2004 2:40 PM CDT documented in this encounter Results * PT AND APTT (09/18/2004 2:42 PM CDT) PROTIME 14.7 12.9 - 15.7 Seconds INTERFACE SYSTEM INR 1.1 0.9 - 1.1 INTERFACE SYSTEM Comment: INR Therapeutic Range: Adult: 2.0 - 3.0 for pulmonary embolism or prophylaxis against venous thrombosis or systemic embolization. 2.0 - 3.0 for patients with tissue heart valves. 2.5 - 3.5 for patients with mechanical heart valves or post VA. Pediatric (12 years and under): 1.5 - 3.0 Although the target range in children is not well established , INR values of 1.5 - 3.0 are recommended for most patients. Higher values have been used in children with prosthetic cardiac valves and hereditary clotting disorders. (<3 days) therapeutic ranges have not been established. Revised 09/07/04 PTT 28.9 25.0 - 35.0 Seconds INTERFACE SYSTEM Comment: PTT Therapeutic Range: Heparin Level PTT (seconds) <0.10 units/mL <45 0.10 - 0.30 units/mL 45 - 65 0.30 - 0.70 units/mL* 65 - 106* 0.70 - 1.00 units/mL 106 - 137 *corresponds to therapeutic range for unfractionated heparin 09/18/2004 2:42 PM CDT us Conor Ortiz MD HEMATOLOGY ORDERABLES Final R esult INTERFACE SYSTEM Refer to clinic/hospital department * (ABNORMAL) POC RT, BLOOD GASES (09/18/2004 2:41 PM CDT) PH MVBG 7.50(H) 7.32 - 7.43 INTERFAC E SYSTEM PCO2 VENOUS 30(L) 38 - 50 mm Hg INTERFACE SYSTEM PO2 MVBG 35 25 - 40 mm Hg INTERFACE SYSTEM O2 SAT EST MVBG POC 74(H) 40 - 70 % INTERFACE SYSTEM PATIENT'S TEMPERATURE 37.0 Degree C INTERFACE SYSTEM BASE EXCESS VENOUS 1.1 -2.0 - 3.0 mmol/L INTERFACE SYSTEM HCO3 MIXED VENOUS 23 22 - 29 mmol/L INTERFACE SYSTEM SODIUM POC 136 135 - 145 mmol/L INTERFACE SYSTEM POTASSIUM POC 4.4 3.5 - 4.9 mmol/L INTERFACE SYSTEM CALICUM IONIZED, WHOLE BLOOD 4.21(L) 4.76 - 5.16 mg/dL INTERFACE SYSTEM HEMATOCRIT POC 44.0 35.5 - 44.0 % INTERFACE SYSTEM FIO2 21 INTERFACE SYSTEM 09/18/2004 2:41 PM CDT us Authorized P Er CHEMISTRY ORDERABLES Final Resul t Performing Organization Address City/[facility] Co de Phone Number INTERFACE SYSTEM Refer to clinic/hospital department * LACTIC ACID (09/18/2004 2:40 PM CDT) LACTIC ACID 1.1 0.7 - 2.1 mmol/L INTERFACE SYSTEM 09/18/2004 2:40 PM CDT us Conor Ortiz MD CHEMISTRY ORDERABLES Final Re sult Performing Organization Address [facility] de Phone Number INTERFACE SYSTEM Refer to clinic/hospital department documented in this encounter Visit Diagnoses Diagnosis Sprain of neck- Primary documented in this encounter Care Teams Buggy Loader Relationship Specialty Start Date End Date Marcelo Healy MD PCP - General Family Practice 03/15/16 10/30/19 documented as of this encounter
== END 2024-08-17 08:03 | disposition home or self-care (01) ==
LOC: ANHAUDASC 08:03
PROVIDERS: PCP Family Medicine
DX: Z01.10 Encounter for examination of ears and hearing without abnormal findings (principal); H90.3 Sensorineural hearing loss, bilateral; H93.13 Tinnitus, bilateral; H61.23 Impacted cerumen, bilateral
CPT/HCPCS: 92557; 92567

== ENCOUNTER 2024-09-10 06:32 | Outpatient (CLI) | payer BC, MEDICARE, SELFPAY ==
--- OUTSIDE RECORDS SUMMARY | 2024-09-10 06:40 | XMS_ITS | Clinical Summary ---
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 Bone N/A: Spine Cervical Anterior MUSCULOSKELETAL TRANSPLANT FOU 04/16/2017 [id number] / [id number] / Vertigraft 7.75x9.22 Mm Vg2 Cervical T79p Implanted:Qty : 1 on 10/28/2014 by Tavares Resendez MD at [facility] Bone N/A: Spine Cervical Anterior LIFENET 07/14/2019 [id number] / [id number] / Plate [place] 2lvl 38mm Ti 1868-02-038 - [id number] Implanted:Qty : 1 on 10/28/2014 by Tavares Resendez MD at [facility] Plate N/A: Spine Cervical Anterior J&J- DEPUY SPINE INC 1867-06-0 38 / / Description:load no. 46 ster ilized 09/28/14 Screw Vari [place] Lrg-D 14mm 1867-54-014 - [id number] Implanted:Qty : 2 on 10/28/2014 by Tavares Resendez MD at [facility] Screw N/A: Spine Cervical Anterior J&J- DEPUY SPINE INC 54-0 14 / / Description:load no. 46 ster ilized 09/28/14 Screw [place] Vari St 14mm 1867-52-014 - [id number] Implanted:Qty : 3 on 10/28/2014 by Tavares Resendez MD at [facility] Screw N/A: Spine Cervical Anterior J&J- DEPUY SPINE [employer] 50-0 14 / / Description:load no. 46 ster ilized 09/28/14 Sealant Floseal W/ Adptr 10ml [id number] - [id number] Implanted:Qty : 1 on 01/05/2013 by Alejandro See MD at [facility] Sealant N/A: Spine Cervical Anterior BRAGA- ActivIdentity 02/12/2014 [id number] / / [id number] Sealant Floseal W/ Adptr 10ml [id number] - [id number] Implanted:Qty : 1 on 10/28/2014 by Tavares Resendez MD at [facility] Sealant N/A: Spine Cervical Anterior BRAGA- ActivIdentity 01/14/2016 [id number] / / [id number] Explanted Type Area Manager Floral Device Identifier Shelf Expiration Date Model / Serial / Lot Plate Cslp Cherelle Ang 25mm 450.152 - [id number] Implanted:Qty : 1 on 01/05/2013 at [facility] Explanted:Qty : 1 on 10/28/2014 by Tavares Resendez MD at [facility] Plate N/A: Spine Cervical Anterior SYNTHES-STRATEC- SPINAL 450.152 / / Description:LOAD 36JANUARY 01, 2013 Screw Xpnhead C Spine 4.15b84el 487.056 - [id number] Implanted:Qty : 4 on 01/05/2013 at [facility] Explanted:Qty : 4 on 10/28/2014 by Tavares Resendez MD at [facility] Screw SYNTHES STRATEC 487.056 / / Description:LOAD 36, JANUARY 01, 2013 Screw Lock C Spine 1.8mm 497.78 - [id number] Implanted:Qty : 4 on 01/05/2013 by Alejandro See MD at [facility] Explanted:Qty : 4 on 10/28/2014 by Tavares Resendez MD at [facility] Screw SYNTHES-STRATEC- SPINAL 497.78 / / Advance Directives For more information, please contact: [phone] * Full Code (Latest Code Status on [...]
--- OUTSIDE RECORDS SUMMARY | 2024-09-10 06:40 | XMS_ITS | Encounter Summary ---
Author Organization [facility] Address 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
--- OUTSIDE RECORDS SUMMARY | 2024-09-10 06:40 | XMS_ITS | Clinical Summary ---
Author Organization [facility] Address Critical access hospital[address] [place] [address] Care Team Providers Care Roll Mechanic Name Role Phone Unavailable Primary Care Provider [...] 5 Years) and At-Risk Patients (6 to 49 Years) Aged Out No longer eligible b ased on patient's age to complete this topic RSV Immunizations Under 20 Months Aged Out No longer eligible based on patient's age to complete this topic
--- OUTSIDE RECORDS SUMMARY | 2024-09-10 06:40 | XMS_ITS | Clinical Summary ---
Author Organization [facility] [employer] Address [address] [place] [address] Care Team Providers Care Machine Pan Greaser Name Role Phone Juvenal Yang MD Primary Care Provider [phone] [phone] Source Comments [facility] [employer],non-owned Affiliates and Associated Physician Practices is amultiple site organization consisting of ambulatory clinics and hospital sitesin [place], [place], [place] and [place]. This disclosure is being madepursuant to the Care Everywhere program and may not contain all information available regarding this patient. Last updated 18.[facility] [employer] Allergies Active Allergy Reactions Criticality Noted Date Comments Codeine Nausea and/or Vomiting Medium 05/24/2022 Morphine Palpitations High 06/12/2010 Medications * This document contains information received from the source organization and may not represent a complete record from that organization. * Be aware that medications may not be up to date on this document. Alwaysverify current medications with the patient. ARMOUR THYROID PO Take 1 tablet by mouth once daily Active ferrous sulfate 325 (65 FE) MG tablet Take 1 (one) tablet by mouth once daily Activ e meclizine (Antivert) 25 MG tablet Take 1 (one) tablet by mouth 3 times daily as needed for Dizziness Active omeprazole (PriLOSEC) 20 MG capsule Take 1 (one) capsule by mouth daily before breakfast Active hydrALAZINE (Apresoline) 25 MG tablet 25 MG ORALLY THREE TIMES A DAY TAKE NEEDED WHEN BLOOD PRESSURE IS GREATER THAN 150/100 MMHG 02/17/20 22 Active vitamin D, ergocalciferol, (Drisdol) 1.25 MG (48501 UT) capsule Take 1 (one) capsule by mouth every 30 days 01/21/20 22 Active azelastine (Astelin) 0.1 % nasal spray [place] 1 (one) spray into the nose 2 times daily 12/25/19 22 Active pregabalin (Lyrica) 150 MG capsule Take 1 (one) capsule by mouth once daily 02/18/20 22 Active tadalafil (Cialis) 20 MG tablet TAKE 1 TABLET BY MOUTH ONCE DAILY NEEDED FOR SEXUAL ACTIVITY ADMINISTER APPROXIAMETLY 30 MINUTES BEFORE SEXUAL ACTIVITY. DO NOT USE MORE THAN 1 DOSE PER 24 HOURS 09/23/19 22 Active ARIPiprazole (Abilify) 5 MG tablet 02/12/20 22 Active ALBUTEROL SULFATE IN Inhale by mouth as needed Active testosterone cypionate (Depo-Testoster one) 200 MG/ML injection INJECT 1 ML (CC) INTRAMUSCULARLY EVERY TWO WEEKS 11/03/19 22 Active loratadine (Claritin) 10 MG tablet Take 1 (one) tablet by mouth once daily Activ e fluticasone diskus (Flovent Diskus) 50 MCG/ACT inhaler Inhale 1 (one) puff by mouth 2 times daily Active lamoTRIgine (LaMICtal) 100 MG tablet Take 1 (one) tablet by mouth once daily 04/15/20 23 Active ALPRAZolam (Xanax) 2 MG tablet Take 1 (one) tablet by mouth 2 times daily as needed 08/02/19 24 Active onabotulinumtox in A (BOTOX) 100 units injectionIndica tions:Migraine Inject 155 (one hundred fifty five) Units into muscle Every 90 days Reasons: Migraine Headache 2 Each 1 08/05/19 24 Active benztropine (Cogentin) 0.5 MG tablet Take 1 (one) tablet by mouth 2 times daily 09/05/19 24 Active FLUoxetine (PROzac) 20 MG capsule TAKE 1 CAPSULE BY MOUTH EVERY DAY IN THE MORNING 09/05/19 24 Active rimegepant (Nurtec) 75 MG tabletIndicatio ns:Intractable chronic migraine without aura and without status migrainosus,Edward martina with aura and without status migrainosus, not intractable,Chr onic daily headache,Post concussive syndrome Take 75 mg by mouth every 2 days 16 tablet 11 09/29/19 24 Active tiZANidine (Zanaflex) 4 MG tablet Take 1 (one) tablet by mouth at bedtime 09/01/19 24 Active hydrOXYzine HCl (Atarax) 25 MG tablet Take 1 (one) tablet by mouth 3 times daily as needed 11/24/19 24 Active metoprolol succinate XL 24hr (Toprol XL) 25 MG tablet Take 1 (one) tablet by mouth once daily 10/28/19 24 Active B-D 3CC LUER-AMARILIS SYR 23GX1 23G X 1 3 ML MISC USE ONE SYRINGE TO INJECT TESTOSTERONE INTRAMUSCULARLY EVERY 2 WEEKS 12/11/19 24 Active onabotulinumtox in A (BOTOX) 100 units injectionIndica tions:Migraine Inject 155 (one hundred fifty five) Units into muscle Every 90 days Reasons: Migraine Headache 2 Each 1 12/19/19 24 Active amLODIPine (Norvasc) 5 MG tablet Take 1 (one) tablet by mouth once daily Activ e ondansetron, disintegrating, (Zofran ODT) 4 MG tabletIndicatio ns:Post concussive syndrome,Migrai ne with aura and without status migrainosus, not intractable TAKE 1 TABLET BY MOUTH ONCE DAILY NEEDED FOR NAUSEA/VOMITING ALLOW TO DISSOLVE ON THE TONGUE 10 tablet 1 06/28/19 25 Active Active Problems Problem Noted Date Diagnosed Date Atypical facial pain 08/05/2023 08/05/2023 T10 spinal cord injury 08/18/2022 3 Elevated CK 06/30/2017 Tension type headache 06/30/2017 [...] Telephone [facility] - Neurology [address], [place] [address] Doreen Schreiber APRN-CNP Medication Prior Auth Request ([facility] renewal) 06/28/2024 Telephone [facility]rology [address] [place] [address], [place] [address] Doreen Schreiber APRN-CNP Medication Prior Auth Request ([facility] renewal) 06/28/2024 Refill [facility] [address] [place] [address], [place] [address] Doreen Schreiber APRN-CNP Refill Request from Last 3 Months Immunizations Immunization Administration Dates Next Due INFLUENZA VACCINE, TRIV. [...] Assigned at Male 01/04/2022 1:38 PM CDT Legal Sex Male 7:07 PM PULPIT OPERATOR Gender Identity Male 01/04/2022 1:38 PM CDT Sexual Orientation Straight 01/04/2022 1: 38 PM CDT Last Filed Vital Signs Vital Sign Reading Time Taken Comments Blood Pressure 140/92 04/09/2024 12:26 PM PULPIT OPERATOR Pulse 79 04/09/2024 12:26 PM PULPIT OPERATOR Temperature 36 C (96.8 F) 09/29/2023 1:07 PM CDT Respiratory Rate 18 06/22/2023 6:29 PM PULPIT OPERATOR Oxygen Saturation 99% 12/19/2023 8:09 AM CDT Inhaled Oxygen Concentration - - Weight 87.1 kg (192 lb) 04/09/2024 12:26 PM PULPIT OPERATOR Height 177.8 cm (5' 10 ) 12/19/2023 8:09 AM CDT Body Mass Index 27.55 12/19/2023 8:09 AM CDT Plan of Treatment Upcoming Encounters Date Type Department Care Team (Late st Contact Info) Description 09/24/2024 8:00 AM CDT [facility] [address] [place] [phone] Doreen Schreiber, STREETCAR MOTORMAN-INSTALLATION ENGINEER [address] [place] [address] [place] [address] 10/10/2024 11:00 AM CDT Procedure visit [facility]rology [address] [place] [phone] Nahomy Munroe, [address] [place] [address] Health Maintenance Due Date Last Done Comments [...] COMPREHENSIVE METABOLIC PANEL STAT 06/22/2023 2:18 PM PULPIT OPERATOR from Last 3 Months or Most Recently Relevant to Health Maintenance Results * (ABNORMAL) COMPREHENSIVE METABOLIC PANEL (06/22/2023 2:18 PM PULPIT OPERATOR) [facility] Glucose 99 70 - 105 mg/dL 06/22/2023 2:44 PM PULPIT OPERATOR [facility] Sodium 141 136 - 145 mmol/L 06/22/2023 2:44 PM PULPIT OPERATOR [facility] Potassium 4.3 3.5 - 5.1 mmol/L 06/22/2023 2:44 PM PULPIT OPERATOR [facility] Chloride 109(H) 98 - 107 mmol/L 06/22/2023 2:44 PM PULPIT OPERATOR [facility] CO2 25 22 - 29 mmol/L 06/22/2023 2:44 PM PULPIT OPERATOR [facility] Calcium 8.5 8.4 - 10.4 mg/dL 06/22/2023 2:44 PM [facility] Anion Gap 7 6 - 16 mmol/L 06/22/2023 2:44 PM [facility] BUN 13 5.3 - 18.7 mg/dL 06/22/2023 2:44 PM [facility] Creatinine 1.26(H) 0.72 - 1.25 mg/dL 06/22/2023 2:44 PM [facility] Alkaline Phosphatase 45 40 - 150 U/L 06/22/2023 2:44 PM [facility] ALT 6 0 - 55 U/L 06/22/2023 2:44 PM [facility] AST 11 5 - 34 U/L 06/22/2023 2:44 PM [facility] Protein Total 6.8 6.4 - 8.3 gm/dL 06/22/2023 2:44 PM [facility] Albumin 4.0 3.4 - 5.0 gm/dL 06/22/2023 2:44 PM [facility] Bilirubin Total 0.7 0.2 - 1.2 mg/dL 06/22/2023 2:44 PM [facility] eGFR by CKD-EPI 71(L) >=90 mL/min/1.7 3 m2 06/22/2023 2:44 PM [facility] Blood BLOOD SPECIMEN / Unknown Venipuncture / Unknown 06/22/2023 2:18 PM PULPIT OPERATOR 06/22/2023 2:26 PM [facility] Manuel [facility] - CHEMISTRY ORDERABLES Final Result [facility] [address] [place] [address] from Last 3 Months or Most Recently Relevant to Health Maintenance Care Teams Machine Pan Greaser Relationship Specialty Start Date End Date Juvenal Yang MD [address] [place] [phone] PCP - General 01/04/22
--- OUTSIDE RECORDS SUMMARY | 2024-09-10 06:40 | XMS_ITS | Encounter Summary ---
Author Organization [facility] Address [address] [place] [address] Care Team Providers Care Rn Infusion Name Role Phone Marcelo Healy MD Primary Care Provider Tereso diamond Encounter Details Date Type Department Care Team (Late st Contact Info) Description 09/18/2004 Outpatient Historical [facility] Douglas Mason DO [address] [place] [address] Er, Authorized P NO ADDRESS ON FILE SPRAIN OF NECK (Primary Dx) Social History Tobacco Use Types Packs/Day Years Used Date Smoking Tobacco: Never Assessed Sex and Gender Information Value Date Recorded Sex Assigned at Not on file Legal Sex Male 4:36 AM PURSE FRAMER Gender Identity Not on file Sexual Orientation [...] patients with mechanical heart valves or post SC. Pediatric (12 years and under): 1.5 - [...] ORDERABLES Final Resul t Performing Organization Address City/[facility] Co de Phone Number INTERFACE SYSTEM Refer to clinic/hospital department * LACTIC ACID (09/18/2004 2:40 PM CDT) LACTIC ACID 1.1 0.7 - 2.1 mmol/L INTERFACE SYSTEM 09/18/2004 2:40 PM CDT us Conor [place] MD CHEMISTRY ORDERABLES Final Re sult Performing Organization Address [facility] de Phone Number INTERFACE SYSTEM Refer to clinic/hospital department documented in this encounter Visit Diagnoses Diagnosis Sprain of neck- Primary documented in this encounter Care Teams Rn Infusion Relationship Specialty Start Date End Date Marcelo Healy MD PCP - General Family Practice 03/15/16 10/30/19 documented as of this encounter
--- OUTSIDE RECORDS SUMMARY | 2024-09-10 06:40 | XMS_ITS | Referral Summary ---
Author Organization [facility] Address [address] [place] [address] Care Team Providers Care Mold Checker Name Role Phone Juvenal Yang MD Primary Care Provider [phone] Encounters Date Type Department Care Team Description 09/07/2024 7:00 AM CDT Therapy [facility] Physical Therapy - [place] [address] [place] [address] Thierno Meyers, PT Cervical radiculopathy (Primary Dx); Right shoulder pain, unspecified chronicity 09/07/2024 9:00 AM CDT Office Visit [facility] [address] [place] [address] 2 [address] [place], [place] [id number] Alicia Ding, DELILAH Fusion of spine of lumbar region (Primary Dx); Cervical radiculopathy; Hx of fusion of cervical spine; S/P fusion of thoracic spine 09/03/2024 2:56 PM CDT - 09/03/2024 11:59 PM CDT Hospital Encounter [facility] Diagnostic Imaging [address] [place] [address] Neck pain Discharge Disposition: Discharge to home or self care 08/21/2024 Orders Only [facility] [address] [place] [address] 2 [address] [place] [address] Alicia Ding, DELILAH Neck pain (Primary Dx) 08/21/2024 Telephone [facility] [address] [place] [address] 2 [address] [place] [address] Bhupendra Baum 08/21/2024 Telephone [facility] [address] [place] [address] 2 [address] [place] [address] Bhupendra Baum 08/20/2024 Orders Only [facility] Orthopedics and Sports Medicine [address] [place] [address] [address] [place] [address] Dileep Geiger NP Cervical radiculopathy (Primary Dx); Right shoulder pain, unspecified chronicity 08/20/2024 Orders Only [facility] Orthopedics and Sports Medicine [address] [place] [address] [address] [place] [address] Dileep Geiger NP Right shoulder pain, unspecified chronicity (Primary Dx) 08/20/2024 7:44 AM CDT - 08/20/2024 11:59 PM CDT Hospital Encounter [facility] Orthopedics [facility] [address] [place] [address] Discharge Disposition: Discharge to home or self care 08/20/2024 3:15 PM CDT Office Visit [facility] Orthopedics and Sports Medicine [address] [place] [address] [address] [place] [address] Dileep Geiger NP Right shoulder pain, unspecified chronicity (Primary Dx); Cervical radiculopathy; Thoracic myelopathy 08/09/2024 7:00 AM CDT Therapy [facility] Physical Therapy [facility] [place] [address] Janelle Al, PT Other specified disorders of bone, shoulder (Primary Dx); Muscle strain of right shoulder, subsequent encounter; Cervical radiculopathy; Right shoulder pain, unspecified chronicity 08/02/2024 7:00 AM CDT Therapy [facility] Physical Therapy [facility] [place] [address] Janelle Al, PT Other specified disorders of bone, shoulder (Primary Dx); Muscle strain of right shoulder, subsequent encounter 07/25/2024 7:00 AM CDT Therapy [facility] Physical Therapy [facility] [place] [address] Thierno Meyers, PT Other specified disorders of bone, shoulder (Primary Dx); Muscle strain of right shoulder, subsequent encounter 07/11/2024 1:45 PM LETTER STAMPING MACHINE OPERATOR Therapy [facility] [place] [address] Thierno Meyers, PT Other specified disorders of bone, shoulder (Primary Dx); Muscle strain of right shoulder, subsequent encounter 07/05/2024 9:00 AM LETTER STAMPING MACHINE OPERATOR Therapy [facility] [place] [address] Thierno Meyers, PT Other specified disorders of bone, shoulder (Primary Dx) 07/02/2024 Telephone [facility] Orthopedics and Sports Medicine [address] [place] [phone] Damaso Yoder, 06/27/2024 7:00 AM LETTER STAMPING MACHINE OPERATOR Therapy [facility] Physical [place] [address] Thierno Meyers, PT Other specified disorders of bone, shoulder (Primary Dx); Muscle strain of right shoulder, subsequent encounter 06/15/2024 7:15 AM LETTER STAMPING MACHINE OPERATOR Therapy [facility] Physical [place] [address] Thierno Meyers, PT Other specified disorders of bone, shoulder (Primary Dx); Muscle strain of right shoulder, subsequent encounter; Chronic right shoulder pain from Last 3 Months Allergies Active Allergy [...] DOSE PER 24 HOURS 09/23/19 22 Active [place] Thyroid 15 mg tablet 12/19/19 22 Active [...] total) by mouth daily 12/20/19 24 Active predniSONE (DELTASONE) 10 mg tablet 09/06/19 Active Active Problems Problem Noted Date Diagnosed [...] on file Legal Sex Male 12:03 PM LETTER STAMPING MACHINE OPERATOR Gender Identity Male 12/17/2021 11:46 PM CDT Sexual Orientation Not on file Last Filed Vital Signs Vital Sign Reading Time Taken Comments Blood Pressure 114/78 09/07/2024 9:02 AM CDT Pulse 59 09/07/2024 9:02 AM CDT Temperature 36.4 C (97.6 F) 09/07/2024 9:02 AM CDT Respiratory Rate 18 09/07/2024 9:02 AM CDT Oxygen Saturation 100% 09/07/2024 9:02 AM CDT Inhaled Oxygen Concentration - - Weight 90.1 kg (198 lb 9.6 oz) 09/07/2024 9:02 A M CDT Height 177.8 cm (5' 10 ) 09/07/2024 9:02 AM CDT Body Mass Index 28.5 09/07/2024 9:02 AM CDT Plan of Treatment Not on file Procedures Procedure Name Priority Date/Time Associated Diagnosis Comments XR SPINE CERVICAL 2 OR 3 VIEWS Schedule Routine, Read Routine (OP Routine) 09/03/2024 3:06 PM CDT Neck pain XR SHOULDER RIGHT 2 OR MORE VIEWS Routine 08/20/2024 2:37 PM CDT Right shoulder pain, unspecified chronicity from Last 3 Months Results * XR Spine Cervical 2 or 3 Views (09/03/2024 3:06 PM CDT) Anatomical Region Laterality Modality Spine N/A Computed Radiogr aphy 09/03/2024 3:11 PM CDT Impressions 09/03/2024 3:11 PM CDT No change since the last study. Electronically signed by: Natty Moss M.D. Narrative 09/03/2024 3:11 PM CDT EXAMINATION: XR SPINE CERVICAL 2 OR 3 VIEWS HISTORY: The patient is a 48-year-old male who presents with neck pain. Comparison made with the previous study dated 01/28/2023. TECHNIQUE: 3 views. FINDINGS: There is anterior fusion from the C3-C6 levels as well as at C6-C7 levels. Fusion of the intervening disks is seen. Alignment is normal. No loosening of the screws. Facet joints and neurocentral joints are grossly normal. No prevertebral soft tissue swelling. Procedure Note Natty Moss MD - 09/03/2024 EXAMINATION: XR SPINE CERVICAL 2 OR 3 VIEWS HISTORY: The patient is a 48-year-old male who presents with neck pain. Comparison made with the previous study dated 01/28/2023. TECHNIQUE: 3 views. FINDINGS: There is anterior fusion from the C3-C6 levels as well as at C6-C7 levels. Fusion of the intervening disks is seen. Alignment is normal. No loosening of the screws. Facet joints and neurocentral joints are grossly normal. No prevertebral soft tissue swelling. IMPRESSION: No change since the last study. Electronically signed by: Natty Moss M.D. Alicia Ding ANIMAL SHELTER CLERK IMG XR PROCEDURES Final Result * XR Shoulder Right 2 or More Views (08/20/2024 2:37 PM CDT) Anatomical Region Laterality Modality Upper Extremities, Shoulder Right Digi luisa Radiography Narrative 08/20/2024 3:56 PM CDT X-rays of the shoulder demonstrate no fracture subluxation or osseous lesions. Moderate AC DJD is noted Dileep Geiger ANIMAL SHELTER CLERK IMG XR PROCEDURES Final Result from Last 3 Months Insurance [facility] [employer] MEDICARE GOLD BLUE ACCESS OOS BLUE ACCESS OOS [employer] MEDICARE GOLD Care Teams Mold Checker Relationship Specialty Start Date End Date Juvenal Yang MD PCP - General Family Practice 12/18/21
--- OUTSIDE RECORDS SUMMARY | 2024-09-10 06:40 | XMS_ITS | Encounter Summary ---
Author Organization [facility] Address [address] [place] [address] Care Team Providers Care Unit Aide Name Role Phone Juvenal Yang MD Primary Care Provider [phone] Reason for Visit * Reason Onset Date Comments Appointment 03/28/2024 Encounter Details Date Type Department Care Team (Late st Contact Info) Description 03/28/2024 Telephone [facility] Scheduling [address] [place] [address] Nahomy Munroe, DO [address] [place] [address] Appointment Social History Tobacco Use Types Packs/Day Years Used Date Smoking Tobacco: Never Smokeless Tobacco: Never Alcohol Use Standard Drinks/Week Comments Yes 0 (1 standard drink = 0.6 oz pur e alcohol) PHQ-2 Answer Date Recorded PHQ2 TOTAL SCORE 6 08/10/2022 Sex and Gender Information Value Date Recorded Sex Assigned at Male 01/04/2022 1:38 PM CDT Legal Sex Male 7:07 PM TUBING OILER Gender Identity Male 01/04/2022 1:38 PM CDT Sexual Orientation Straight 01/04/2022 1: 38 PM CDT documented as of this encounter Miscellaneous Notes * Telephone Encounter - AmiBrannon bird - 03/28/2024 1:10 PM CST Patient would like help to reschedule his Botox appointment. NG OILER documented in this encounter Plan of Treatment Upcoming Encounters Date Type Department Care Team (Late st Contact Info) Description 09/24/2024 8:00 AM CDT Office Visit [facility] - Neurology [address] [place] [address], [place] [address] Doreen Schreiber, PROFESSOR OF THEATRE-GLASS BLOWING LATHE OPERATOR [address] [place] [address] [place] [phone] 10/10/2024 11:00 AM CDT Procedure visit [facility] - Neurology [address] [place] [phone] Nahomy Munroe, DO [address] [place] [phone] documented as of this encounter Visit Diagnoses Not on filedocumented in this encounter Care Teams Unit Aide Relationship Specialty Start Date End Date Juvenal Yang MD [address] [place] [phone] PCP - General 01/04/22 documented as of this encounter
--- OUTSIDE RECORDS SUMMARY | 2024-09-10 06:40 | XMS_ITS | Encounter Summary ---
Author Organization [facility] Address [address] [place] [address] Care Team Providers Care Irrigation Worker Name Role Phone Marcelo Healy MD Primary Care Provider Tereso diamond Encounter Details Date Type Department Care Team (Late st Contact Info) Description 06/03/2004 Outpatient Historical [facility] N[facility]I [place] Social History Tobacco Use Types Packs/Day Years Used Date Smoking Tobacco: Never Assessed Sex and Gender Information Value Date Recorded Sex Assigned at Not on file Legal Sex Male 4:36 AM ENTERTAINMENT DIRECTOR Gender Identity Not on file Sexual Orientation Not on file documented as of this encounter Plan of Treatment Not on file documented as of this encounter Visit Diagnoses Not on filedocumented in this encounter Care Teams Irrigation Worker Relationship Specialty Start Date End Date Marcelo Healy MD PCP - General Family Practice 03/15/16 10/30/19 documented as of this encounter
--- OUTSIDE RECORDS SUMMARY | 2024-09-10 06:40 | XMS_ITS | Encounter Summary ---
Author Organization [facility] Health Address [address] [facility] [place] [address] Care Team Providers Care Puddler Pile Driving Name Role Phone Juvenal Yang MD Primary Care Provider [phone] Reason for Visit * Reason Onset Date Comments Reschedule Appointment 02/24/2023 Encounter Details Date Type Department Care Team (Late st Contact Info) Description 02/24/2023 Telephone [facility] - Centralized Scheduling [address] [place] [phone] Abraham Mccoy MD [facility] [place] [address] Reschedule Appointment Social History Tobacco Use Types Packs/Day Years Used Date Smoking Tobacco: Never Smokeless Tobacco: Never Alcohol Use Standard Drinks/Week Comments Yes 0 (1 standard drink = 0.6 oz pur e alcohol) PHQ-2 Answer Date Recorded PHQ2 TOTAL SCORE 6 08/10/2022 Sex and Gender Information Value Date Recorded Sex Assigned at Male 01/04/2022 1:38 PM CDT Legal Sex Male 7:07 PM PIANO MAKER Gender Identity Male 01/04/2022 1:38 PM CDT [...] Description 09/24/2024 8:00 AM CDT Office Visit [facility] - Neurology [address] [place] [address], [place] [address] Doreen Schreiber, INPATIENT CODER-MANAGER MOBILITY [address] [place] [address] [place] [phone] 10/10/2024 11:00 AM CDT Procedure visit [facility] - Neurology [address] [place] [address], [place] [address] Nahomy Munroe, DO [address] [place] [phone] documented as of this encounter Visit Diagnoses Not on filedocumented in this encounter Additional Health Concerns Infection Onset Date Last Indicated Resolved Time COVID-19 Under Investigation 06/22/2023 06/22/2023 06/22/2023 3:05 PM PIANO MAKER documented as of this encounter Care Teams Puddler Pile Driving Relationship Specialty Start Date End Date Juvenal Yang MD [address] [place] [phone] PCP - General 01/04/22 documented as of this encounter
--- OUTSIDE RECORDS SUMMARY | 2024-09-10 06:40 | XMS_ITS | Clinical Summary ---
Author Organization [facility] Address [address] [place] [address] Care Team Providers Care Labour Market Economist Name Role Phone Juvenal Yang MD Primary Care Provider [phone] [phone] Allergies Active Allergy Reactions Criticality Noted Date [...] DOSE PER 24 HOURS 09/23/19 22 Active Parker Thyroid 15 mg tablet 12/19/19 22 Active [...] Active predniSONE (DELTASONE) 10 mg tablet 09/06/19 25 Active Active Problems Problem Noted Date [...] Date Type Department Care Team Description 09/07/2024 9:00 AM CDT Office Visit [facility] [id number] [place] [address] [place] [address] Alicia Ding, DELILAH Fusion of spine of lumbar region (Primary Dx); Cervical radiculopathy; Hx of fusion of cervical spine; S/P fusion of thoracic spine 09/07/2024 7:00 AM CDT Therapy [facility] Physical Therapy - [place] [address] [place] [address] Thierno Meyers, PT Cervical radiculopathy (Primary Dx); Right shoulder pain, unspecified chronicity 09/03/2024 2:56 PM CDT - 09/03/2024 11:59 PM CDT Hospital Encounter [facility] [address] [place] [address] Neck pain Discharge Disposition: Discharge to home or self care 08/21/2024 Orders Only [address] [place] [address] Alicia Ding, DELILAH Neck pain (Primary Dx) 08/21/[address] [place] [address] Bhupendra Baum 08/21/[address] [place] [address] Bhupendra Baum 08/20/2024 3:15 PM CDT Office Visit [facility] Orthopedics and Sports Medicine [address] [place] [phone] Dileep Geiger, DELILAH Right shoulder pain, unspecified chronicity (Primary Dx); Cervical radiculopathy; Thoracic myelopathy 08/20/2024 7:44 AM CDT - 08/20/2024 11:59 PM CDT Hospital Encounter [facility] Orthopedics and Sports Medicine [address] [place] [address] [address] [place] [address] Discharge Disposition: Discharge to home or self care 08/20/2024 Orders Only [facility] Orthopedics and Sports Medicine [address] [place] [address] Dileep Geiger NP Cervical radiculopathy (Primary Dx); Right shoulder pain, unspecified chronicity 08/20/2024 Orders Only [facility] Orthopedics and Sports Medicine [address] [place] [address] Dileep Geiger NP Right shoulder pain, unspecified chronicity (Primary Dx) 08/09/2024 7:00 AM [facility] Therapy [facility] Physical Therapy [facility] [place] [address] Janelle Al, PT Other specified disorders of bone, shoulder (Primary Dx); Muscle strain of right shoulder, subsequent encounter; Cervical radiculopathy; Right shoulder pain, unspecified chronicity 08/02/2024 7:00 AM T Therapy [facility] Physical Therapy [facility] [place] [address] Janelle Al, PT Other specified disorders of bone, shoulder (Primary Dx); Muscle strain of right shoulder, subsequent encounter 07/25/2024 7:00 AM [facility] Therapy [facility] Physical Therapy [facility] [place] [address] Thierno Meyers, PT Other specified disorders of bone, shoulder (Primary Dx); Muscle strain of right shoulder, subsequent encounter 07/11/2024 1:45 PM CRANE LADLE PERSON Therapy [facility] Physical Therapy [facility] [place] [address] Thierno Meyers, PT Other specified disorders of bone, shoulder (Primary Dx); Muscle strain of right shoulder, subsequent encounter 07/05/2024 9:00 AM CRANE LADLE PERSON Therapy [facility] Physical Therapy [facility] [place] [address] Thierno Meyers, PT Other specified disorders of bone, shoulder (Primary Dx) 07/02/2024 Telephone [facility] Medical Group Orthopedics and Sports Medicine [address] [place] [address] Damaso Yoder DO 06/27/2024 7:00 AM CRANE LADLE PERSON Therapy [facility] Physical Therapy - [place] [address] [place] [address] Thierno Meyers, PT Other specified disorders of bone, shoulder (Primary Dx); Muscle strain of right shoulder, subsequent encounter 06/15/2024 7:15 AM CRANE LADLE PERSON Therapy [facility] Physical Therapy - [place] [address] [place] [address] Thierno Meyers, PT Other specified disorders of bone, shoulder (Primary Dx); Muscle strain of right shoulder, subsequent encounter; Chronic right shoulder pain from Last 3 Months Immunizations Immunization Administration [...] failure Paternal Grandfather Balbir Hypertension Paternal Grandfather Balbir Migraines Paternal Grandfather Balbir Osteoarthritis Paternal Grandfather Balbir Snoring Paternal Grandfather Balbir Stroke Paternal Grandfather Balbir Asthma Paternal Grandmother Grandma F. Diabetes Paternal Grandmother Grandma F. Osteoarthritis Paternal Grandmother Grandma F. Rheum arthritis Paternal Grandmother Grandma F. Relation Name Status Comments Brother Bar Father (Age 36) Maternal Grandfather Hassan [...] on file Legal Sex Male 12:03 PM CRANE LADLE PERSON Gender Identity Male 12/17/2021 11:46 PM CDT [...] 09/07/2024 9:02 AM CDT Plan of Treatment Health Maintenance [...] signed by: Natty Moss M.D. Alicia Ding NP IMG XR PROCEDURES Final Result * XR Shoulder Right 2 or More Views (08/20/2024 2:37 PM CDT) Anatomical Region Laterality Modality Upper Extremities, Shoulder Right Digi luisa Radiography Narrative 08/20/2024 3:56 PM CDT X-rays of the shoulder demonstrate no fracture subluxation or osseous lesions. Moderate AC DJD is noted Dileep Geiger PHARMACEUTICAL DETAILER IMG XR PROCEDURES Final Result from Last 3 Months Insurance [facility] AETNA MEDICARE GOLD BLUE [facility] [place] [employer] [facility] Member Subscriber Plan / Payer (Ef fective 2024-Present) Name:Zee Mario Relation to Subscriber:Self Name:Zee Mario Payer ID:[id number] (NAIC) Type:[employer] Address: [address] MEDICARE [facility] Care Teams Labour Market Economist Relationship Specialty Start Date End Date Juvenal Yang MD PCP - General Family Practice 12/18/21
[2024-09-10 20:07] LABS: Basophils Percent Auto 0.4 % (0.2-1.2); Eosinophils Absolute Auto 0.3 K/mm3 (0-0.3); Eosinophils Percent Auto 3.3 % (0-4.4); Hematocrit 53.4 % (42.0-52.0); Immature Granulocyte Absolute 0.04 K/mm3 (0.00-0.031); Immature Granulocyte Percent A 0.5 % (0-0.5); Lymphocytes Absolute Auto 3.88 K/mm3 (0.9-3.2); Lymphocytes Percent Auto 49.8 % (18.3-44.2); Mean Corpuscular HGB Conc 31.8 g/dl (32-36); Mean Corpuscular Hemoglobin 29.4 pg (26-34); Mean Corpuscular Volume 92.4 fl (80-100); Mean Platelet Volume 9.8 fl (7.4-10.4); Monocytes Absolute Auto 0.6 K/mm3 (0.1-0.6); Monocytes Percent Auto 8.2 % (2.6-8.5); Neutrophils Absolute Auto 2.9 K/mm3 (1.3-6.7); Neutrophils Percent Auto 37.8 % (45.5-73.1); Platelet Count Result 232 k/mm3 (150-375); Red Blood Count 5.78 M/mm3 (4.6-6.20); Red Cell Distribution Width 12.9 % (11.5-14.5); White Blood Count 7.8 K/mm3 (4.5-10.0)
[2024-09-10 22:36] LABS: Alanine Aminotransferase 15 U/L (6-50); Albumin Level 4.5 g/dL (3.5-5.1); Alkaline Phosphatase 44 U/L (38-126); Anion Gap 7 mmol/L (4-12); Aspartate Amino Transferase 84 U/L (17-59); Bilirubin,Total 0.6 mg/dL (0.2-1.3); Blood Urea Nitrogen 28 mg/dL (9-20); Calcium 8.9 mg/dL (8.4-10.2); Carbon Dioxide 28 mmol/L (22-30); Chloride 105 mmol/L (98-107); Cholesterol 173 mg/dL (0-200); Estimated Glomerular Filt Rate 55; Glucose 82 mg/dL (65-110); HDL Direct 38 mg/dL; Potassium 4.9 mmol/L (3.4-5.0); Sodium 140 mmol/L (137-145); Triglycerides 146 mg/dL (<150)
[2024-09-10 22:48] LABS: LDL Cholesterol Direct 83 mg/dL
[2024-09-10 23:08] LABS: Prostate Specific Antigen 0.6 ng/mL (< OR = 4.0)
== END 2024-09-10 06:33 | disposition home or self-care (01) ==
LOC: ANHBWCLAB 06:38
PROVIDERS: PCP Family Medicine; Visit Provider Family Medicine
DX: Z12.5 Encounter for screening for malignant neoplasm of prostate (principal); E29.1 Testicular hypofunction; E03.9 Hypothyroidism, unspecified; I10 Essential (primary) hypertension; R73.09 Other abnormal glucose; E61.1 Iron deficiency; R51.9 Headache, unspecified; R53.83 Other fatigue; R17 Unspecified jaundice; R79.89 Other specified abnormal findings of blood chemistry
CPT/HCPCS: 36415; 80053; 80061; 82248; 84153; 84402; 84403; 84443; 85025; G0103

== ENCOUNTER 2025-01-05 08:44 | Outpatient (CLI) | payer MEDICARE, OTHER, SELFPAY ==
--- OUTSIDE RECORDS SUMMARY | 2013-02-22 05:00 | XMS_ITS | Continuity of Care Document ---
Author Organization [facility] Address [address] [place] [address] Phone Care Team Providers Care Nurse Private Duty Name Role Phone Alejandro See MD Unavailable Unavailable Allergies, Adverse Reactions, Alerts Substance Reaction Status Criticality morphine Active No Information Medications Medication Instructions Dosage Effective Dates (start - stop) Status Comments Vicodin 5 mg-500 mg tablet take 1 tablet by oral route every 4 - 6 hours as needed for pain - Active AMLODIPINE BESYLATE (unknown strength) Not Available - Active LISINOPRIL (unknown strength) Not Available - Active HYDROCHLOROTHIAZIDE (unknown strength) Not Available - Active FLUOXETINE HCL (unknown strength) Not Available - Active CLARITIN (unknown strength) Not Available - Active POTASSIUM (unknown strength) Not Available - Active HYDROCODONE-ACETAMINOPHE N (unknown strength) Not Available - Active Procedures Procedure Date POSTOP FOLLOW-UP VISIT POSTOP FOLLOW-UP VISIT Advance Directives Directive Yes / No Effective Date File Name Resuscitation Not Answered N/A N/A Life Support Not Answered N/A N/A Intubation Not Answered N/A N/A Antibiotics Not Answered N/A N/A IV Fluid Support Not Answered N/A N/A Tube Feed Not Answered N/A N/A Other Directive N/A N/A WARNING:The information contained in this section is historical and is provided for information only and does not constitute a legal document or any assurance that the information is still accurate. Please verify the information with the urbina of the legal document before using it for clinical purposes. Encounters Encounter Description Practice Location Reason(s) For Visit Diagnoses Date Provider Providers Copied on Encounter [facility], [address] [place] [address], [address], [phone] [facility]placement [facility] intervertebral disc without myelopathy 0 3 Curylo Alejandro. [address] [place], [place], [id number] . tel: [phone] [facility], [address] [place] [address], [address], [phone] [facility] CervicalgiaDisp lacement of cervical intervertebral disc without myelopathySpina l stenosis in cervical region Jan-0 5 3 Curylo Alejandro. [address] [place] [address], [id number] . tel: [phone] [facility], [address] [place] [address], [address], [phone] [facility] No Information 3 Aguirre Damaso. [address] [place] [address], [id number] . tel: [phone] Family History Family Member Type Diagnosis Age At Onset No Information Payers Payer name Insurance type Covered republican ID Authoriza tion(s) No Information Social History Type Description Quantity Date Captured Comments Alcohol Use Details Unknown Caffeine Use Details Unknown Tobacco Use Status No Information Smoking Status Never smoker Non-Smoking Tobacco Use Details : No Details Available : No Details Available Sex Male Vital Signs Date / Time: Height Weight BMI Pulse Rate Blood Pressure Temperature Respiratory Rate Body Surface Area Head Circumference Head Circ. Percentile Wt./Robbi. Percentile BMI percentile Pulse Ox Inhaled Ox 10:52 AM 70.00 in 210.00 lbs 30.1 3 kg/m eter (2) 130/78 mm[Hg] Chief Complaint And Reason For Visit No Information Reason For Referral Reason For Referral No Information Plan Of Treatment Date Type Action Status Referral Ordered: RADEX SPI CRV MINIMUM 4 VIEWS ordered Referral Ordered: RADEX SPI CRV 2/3 VIEWS ordered History Of Present Illness Encounter Date Complaint History Of Prese nt Illness No Information Functional Status Date Functional Assessmen t No Information Instructions Date Instruction Additional Infor mation No Information Assessments Type Assessment Date No Information Patient Care Teams Name Effective Dates (start - stop) Status Members No Information
--- OUTSIDE RECORDS SUMMARY | 2015-01-16 11:45 | XMS_ITS | Continuity of Care Document ---
Author Organization [facility] Address [address] [place] [address] Phone Care Team Providers Care Grease Packer Name Role Phone Lambert PT, MSSina Unavailable Unavailable Procedures Procedure Date THERAPEUTIC EXERCISES NEUROMUSCULAR RE-ED PT EVALUATION THERAPEUTIC EXERCISES NEUROMUSCULAR RE-ED THERAPEUTIC EXERCISES NEUROMUSCULAR RE-ED PT EVALUATION THERAPEUTIC EXERCISES NEUROMUSCULAR RE-ED PT RE-EVALUATION THERAPEUTIC EXERCISES MANUAL THERAPY HOT/COLD PACK ELECTRIC STIMULATION UNATT Home C-Traction PT EVALUATION THERAPEUTIC EXERCISES MANUAL THERAPY HOT/COLD PACK ELECTRIC STIMULATION UNATT Advance Directives Directive Yes / No Effective Date File Name No Information Encounters Encounter Description Practice Location Reason(s) For Visit Diagnoses Date Provider Providers Copied on Encounter [facility], [address], [place], [place], [id number], tel:[phone] [place] No Information 5 Lambert Andino. [address], [address], [place], [address], [place]. [phone] Referring Provider: Mario Wolf, [address], [place], [address]. tel:[phone] [facility], [place], [place], [id number], [place] tel:[phone] [place] Concussion with no loss of consciousness Sep-0 5 Lambert Andino. [address], [address], [place], [address], [place]. tel: [phone] Referring Provider: Mario Wolf, [address], [place], [address]. tel:[phone] [facility] [address], [place], [place], [id number], [place] tel:[phone] [place] No Information Aug- 5 Lambert Andino. [address] [place] [address], [address], [place], [address], [place]. tel: [phone] Referring Provider: Mario Wolf, [address], [place], [address]. tel:[phone] [facility], [place], [place], [id number], [place] tel:[phone] [place] Abnormality of gaitLack of coordinationDizz inessPostconcuss ion syndrome Aug- 5 Lambert Andino. [address] [place] [address], [address], [place], [address], [place]. tel:[phone] Referring Provider: Mario Wolf, [address], [place], [address]. tel:[phone] [facility], [address], [place], [place], [id number], [place] tel:[phone] [place] No Information 3 Varun Vázquez. [address], [address], [place], [address], [place]. tel:[phone] Referring Provider: Chip Miller, [address], [place], [address]. tel:[phone] [facility], [address], [place], [place], [id number], [place] tel:[phone] [place] Pain in joint involving shoulder regionCervicocra nial syndrome 3 Varun Vázquez. [address], [address], [place], [address], [place]. tel:[phone] Referring Provider: Chip Miller, [address], [place], [address]. tel:[phone] Family History Family Member Type Diagnosis Age At Onset No Information Payers Payer name Insurance type Covered green party ID sangeeta hernandez(s) Es [id number] Social History Type Description Quantity Date Captured Comments Sex Male Smoking Status No Information Chief Complaint And Reason For Visit No Information Reason For Referral Reason For Referral No Information History Of Present Illness Encounter Date Complaint History Of Prese nt Illness No Information Functional Status Date Functional Assessmen t No Information Instructions Date Instruction Additional Infor mation No Information Assessments Type Assessment Date No Information Patient Care Teams Name Effective Dates (start - stop) Status Members No Information
--- OUTSIDE RECORDS SUMMARY | 2025-01-05 08:51 | XMS_ITS | Encounter Summary ---
Author Organization [facility] Address [address] [facility] [place] [address] Care Team Providers Care Life Science Technician Name Role Phone Juvenal Yang MD Primary Care Provider [phone] [phone] Reason for Visit * Reason Onset Date Comments Appointment 03/28/2024 Encounter Details Date Type Department Care Team (Late st Contact Info) Description 03/28/2024 Telephone [facility] - Centralized Scheduling [address] [place] [address] Nahomy Munroe, DO [address] [place] [address] Appointment Social History Tobacco Use Types Packs/Day Years Used Date Smoking Tobacco: Never Smokeless Tobacco: Never Alcohol Use Standard Drinks/Week Comments Yes 0 (1 standard drink = 0.6 oz pur e alcohol) PHQ-2 Answer Date Recorded PHQ2 TOTAL SCORE 6 08/10/2022 Sex and Gender Information Value Date Recorded Sex Assigned at Male 01/04/2022 1:38 PM CDT Legal Sex Male 7:07 PM BAGGAGE HANDLING SUPERVISOR Gender Identity Male 01/04/2022 1:38 PM CDT Sexual Orientation Straight 01/04/2022 1: 38 PM CDT documented as of this encounter Miscellaneous Notes * Telephone Encounter - AmiBrannon bird - 03/28/2024 1:10 PM CST Patient would like help to reschedule his Botox appointment. AGE HANDLING SUPERVISOR documented in this encounter Plan of Treatment Upcoming Encounters Date Type Department Care Team (Late st Contact Info) Description 01/17/2025 4:00 PM CDT Procedure visit [facility]rology [address] [facility], [place] [address] Doreen Schreiber, RESPITE WORKER-ENGINE REPAIRER SERVICE [address] [place] [address] [place] [address] documented as of this encounter Visit Diagnoses Not on filedocumented in this encounter Care Teams Life Science Technician Relationship Specialty Start Date End Date Juvenal Yang MD [address] [place] [phone] PCP - General 01/04/22 documented as of this encounter
--- OUTSIDE RECORDS SUMMARY | 2025-01-05 08:51 | XMS_ITS | Encounter Summary ---
Author Organization [facility] Health Address [address] [facility] [place] [address] Care Team Providers Care Disability Program Navigator Name Role Phone Juvenal Yang MD Primary Care Provider [phone] Reason for Visit * Reason Onset Date Comments Reschedule Appointment 02/24/2023 Encounter Details Date Type Department Care Team (Late st Contact Info) Description 02/24/2023 Telephone [facility] - Centralized Scheduling [address] [place] [phone] Abraham Mccoy MD [facility] [place] [place] [address] Reschedule Appointment Social History Tobacco Use Types Packs/Day Years Used Date Smoking Tobacco: Never Smokeless Tobacco: Never Alcohol Use Standard Drinks/Week Comments Yes 0 (1 standard drink = 0.6 oz pur e alcohol) PHQ-2 Answer Date Recorded PHQ2 TOTAL SCORE 6 08/10/2022 Sex and Gender Information Value Date Recorded Sex Assigned at Male 01/04/2022 1:38 PM CDT Legal Sex Male 7:07 PM JACK WINDER Gender Identity Male 01/04/2022 1:38 PM CDT [...] Description 01/17/2025 4:00 PM CDT Procedure visit [facility] - Neurology [address] [facility] [place] [address] Doreen Schreiber, LEADERSHIP DEVELOPMENT INSTRUCTOR-CONTACT LENS CURVE GRINDER [address] [place] [place] [address] documented as of this encounter Visit Diagnoses Not on filedocumented in this encounter Additional Health Concerns Infection Onset Date Last Indicated Resolved Time COVID-19 Under Investigation 06/22/2023 06/22/2023 06/22/2023 3:05 PM JACK WINDER documented as of this encounter Care Teams Disability Program Navigator Relationship Specialty Start Date End Date Juvenal Yang MD [address] [place] [phone] PCP - General 01/04/22 documented as of this encounter
--- OUTSIDE RECORDS SUMMARY | 2025-01-05 08:51 | XMS_ITS | Encounter Summary ---
Author Organization [facility] Address [address] [place] [address] Care Team Providers Care Pals Nurse Name Role Phone Marcelo Healy MD Primary Care Provider Tereso diamond Encounter Details Date Type Department Care Team (Late st Contact Info) Description 09/18/2004 Emergency [facility] Douglas Mason DO [address] [place] [address] Er, Authorized P NO ADDRESS ON FILE SPRAIN OF NECK (Primary Dx) Social History Tobacco Use Types Packs/Day Years Used Date Smoking Tobacco: Never Assessed Sex and Gender Information Value Date Recorded Sex Assigned at Not on file Legal Sex Male 4:36 AM BRAND ATTENDANT Gender Identity Not on file Sexual Orientation [...] patients with mechanical heart valves or post MD. Pediatric (12 years and under): 1.5 - [...] for unfractionated heparin 09/18/2004 2:42 PM CDT Conor Ortiz MD HEMATOLOGY ORDERABLES Final R [...] ORDERABLES Final Resul t Performing Organization Address City/[facility] Co de Phone Number INTERFACE SYSTEM Refer to clinic/hospital department * LACTIC ACID (09/18/2004 2:40 PM CDT) LACTIC ACID 1.1 0.7 - 2.1 mmol/L INTERFACE SYSTEM 09/18/2004 2:40 PM CDT us Conor Ortiz MD CHEMISTRY ORDERABLES Final Re sult Performing Organization Address City/[facility] Co de Phone Number INTERFACE SYSTEM Refer to clinic/hospital department documented in this encounter Visit Diagnoses Diagnosis Sprain of neck- Primary documented in this encounter Care Teams Pals Nurse Relationship Specialty Start Date End Date Marcelo Healy MD PCP - General Family Practice 03/15/16 10/30/19 documented as of this encounter
--- OUTSIDE RECORDS SUMMARY | 2025-01-05 08:51 | XMS_ITS | Encounter Summary ---
Author Organization [facility] Address [address] [place] [address] Care Team Providers Care Network Coordinator Name Role Phone Marcelo Healy MD Primary Care Provider Tereso diamond Encounter Details Date Type Department Care Team (Late st Contact Info) Description 06/03/2004 Outpatient Historical [facility] NISHI MARTINE[facility] Social History Tobacco Use Types Packs/Day Years Used Date Smoking Tobacco: Never Assessed Sex and Gender Information Value Date Recorded Sex Assigned at Not on file Legal Sex Male 4:36 AM DRY KILN LOADER Gender Identity Not on file Sexual Orientation Not on file documented as of this encounter Plan of Treatment Not on file documented as of this encounter Visit Diagnoses Not on filedocumented in this encounter Care Teams Network Coordinator Relationship Specialty Start Date End Date Marcelo Healy MD PCP - General Family Practice 03/15/16 10/30/19 documented as of this encounter
--- OUTSIDE RECORDS SUMMARY | 2025-01-05 08:51 | XMS_ITS | Clinical Summary ---
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 Gender Identity Not on file Sexual Orientation [...] 9:47 AM CDT Height 177.8 cm (5' 10) 12/21/2018 9:47 AM CDT Body Mass Index [...] Q 5 years 2021 INFLUENZA VACCINE (#1) 2024 6, 02/17/2016, 03/20/2015 Medical Devices Implanted Type Area Cadd Instructor Device Identifier Shelf Expiration Date Model / Serial / Lot Allgrft Spacer Acf 7mm [id number] - [id number] Implanted:Qty : 1 on 01/05/2013 by Alejandro See MD at [facility] Bone N/A: Spine Cervical Anterior MUSCULOSKELETAL TRANSPLANT FOU 04/16/2017 [id number] / [id number] / Vertigraft 7.75x9.22 Mm Vg2 Cervical [id number] Implanted:Qty : 1 on 10/28/2014 by Tavares Resendez MD at [facility] Bone N/A: Spine Cervical Anterior LIFENET 07/14/2019 [id number] / [id number] / Plate [place] 2lvl 38mm Ti 1868-02-038 - [id number] Implanted:Qty : 1 on 10/28/2014 by Tavares Resendez MD at [facility] Plate N/A: Spine Cervical Anterior J&J- DEPUY SP[employer] INC 1867-06-0 38 / / Description:load no. 46 ster ilized 09/28/14 Screw Vari [place] Lrg-D 14mm 1867-54-014 - [id number] Implanted:Qty : 2 on 10/28/2014 by Tavares Resendez MD at [facility] Screw N/A: Spine Cervical Anterior J&J- [employer] 54-0 14 / / Description:load no. 46 ster ilized 09/28/[address] 14mm 1867-52-014 - [id number] Implanted:Qty : 3 on 10/28/2014 by Tavares Resendez MD at [facility] Screw N/A: Spine Cervical Anterior J&J- [employer] 50-0 14 / / Description:load no. 46 ster ilized 09/28/14 Sealant Floseal W/ Adptr 10ml [id number] - [id number] Implanted:Qty : 1 on 01/05/2013 by Alejandro See MD at [facility] Sealant N/A: Spine Cervical Anterior BRAGA- [employer] 02/12/2014 [id number] / / [id number] Sealant Floseal W/ Adptr 10ml [id number] - [id number] Implanted:Qty : 1 on 10/28/2014 by Tavares Resendez MD at [facility] Sealant N/A: Spine Cervical Anterior BRAGA- [employer] 01/14/2016 [id number] / / [id number] Explanted Type Area Cadd Instructor Device Identifier Shelf Expiration Date Model / Serial / Lot Plate Cslp Cherelle Ang 25mm 450.152 - [id number] Implanted:Qty : 1 on 01/05/2013 at [facility] Explanted:Qty : 1 on 10/28/2014 by Tavares Resendez MD at [facility] Plate N/A: Spine Cervical Anterior SYNTHES-STRATEC- SPINAL 450.152 / / Description:LOAD 36JANUARY 01, 2013 Screw Xpnhead C Spine 4.61c72zd 487.056 - [id number] Implanted:Qty : 4 on 01/05/2013 at [facility] Explanted:Qty : 4 on 10/28/2014 by Tavares Resendez MD at [facility] Screw SYNTHES STRATEC 487.056 / / Description:LOAD 36, JANUARY 01, 2013 Screw Lock C Spine 1.8mm 497.78 - [id number] Implanted:Qty : 4 on 01/05/2013 by Alejandro See MD at [facility] Explanted:Qty : 4 on 10/28/2014 by Tavares Resendez MD at [facility] Screw SYNTHES-STRATEC- SPINAL 497.78 / / Advance Directives For more information, please contact: [phone] * Full Code (Latest Code Status on [...]
--- OUTSIDE RECORDS SUMMARY | 2025-01-05 08:51 | XMS_ITS | Patient Health Record ---
Author Organization [facility] Proficiency Address [address] [facility] [address] [facility] [address] [place] [address] Care Team Providers Care Aluminum Container Tester Name Role Phone Latonia Landon Unavailable [phone] Reason For Referral No Information Plan Of Treatment No Information
--- OUTSIDE RECORDS SUMMARY | 2025-01-05 08:51 | XMS_ITS | Encounter Summary ---
Author Organization [facility] Address 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
--- OUTSIDE RECORDS SUMMARY | 2025-01-05 08:51 | XMS_ITS | Clinical Summary ---
Author Organization [facility] Address [address] [place] [address] Care Team Providers Care Manager Marketing Name Role Phone Juvenal Yang MD Primary Care Provider [phone] Allergies Active Allergy Reactions Criticality Noted Date [...] DOSE PER 24 HOURS 09/23/19 22 Active Fults Thyroid 15 mg tablet 12/19/19 22 Active [...] Encounters Date Type Department Care Team Description 12/06/2024 9:00 AM CDT Procedure visit [facility] Medicine Neurological Testing [address] [facility] 6[address] [place] [address] [place] [id number] Myelopathy (HCC); Pain of right upper extremity 11/05/2024 5:15 PM CDT - 11/05/2024 11:59 PM CDT Hospital Encounter [facility] [address] [place] [address] Myelopathy (HCC); Pain of right upper extremity Discharge Disposition: Discharge to home or self care 11/02/[address] [address] [place] 10/19/2024 1:15 PM CDT Office Visit [facility] [address] [address] [address] [place] [address] Alicia Ding NP Myelopathy (HCC) (Primary Dx); Pain of right upper extremity from Last 3 Months Immunizations Immunization Administration [...] Dizziness 08/2021 GERD (gastroesophageal reflu x disease) 1999 Headache 2015 TMJ dysfunction 2015 Anemia Family History Medical History Relation Name Comments Migraines Brother Ashlee. Car Accident Father MVA; Cause of D [...] on file Legal Sex Male 12:03 PM CHEMICAL WEIGHER Gender Identity Male 12/17/2021 11:46 PM CDT Sexual Orientation Not on file Obstetrics History Last Filed Vital Signs Vital Sign Reading Time Taken Comments Blood Pressure 125/84 10/19/2024 1:08 PM CDT Pulse 69 10/19/2024 1:08 PM CDT Temperature 36.8 C (98.3 F) 10/19/2024 1:08 PM CDT Respiratory Rate 18 10/19/2024 1:08 PM CDT Oxygen Saturation 99% 10/19/2024 1:08 PM CDT Inhaled Oxygen Concentration - - Weight 92.6 kg (204 lb 1.6 oz) 10/19/2024 1:08 P M CDT Height 177.8 cm (5' 10) 10/19/2024 1:08 PM CDT Body Mass Index 29.29 10/19/2024 1:08 PM CDT Plan of Treatment Health Maintenance Due Date Last Done Comments Colon Cancer Screening-Colonoscopy 1976 Depression Screening 1976 Hepatitis C Screening 1976 Hepatitis B Screening 1994 Regular Well Visit/Exam 18-64 1994 Pneumococcal vaccine <65 (1 of 2 - PCV) 12/17/1995 Covid-19 Vaccine (3 - 2023-2 5 season) 2024 06/10/2020, 05/13/2020 Influenza Vaccine (#1) 2025 , 03/14/2016, 02/17/2016, Additional history exists DTaP/Tdap/Td Vaccine (2 - Td or Tdap) 06/20/2033 06/20/2023 Procedures Procedure Name Priority Date/Time Associated Diagnosis Comments EMG/NCV Routine 12/06/2024 2:20 PM CDT Myelopathy (HCC) Pain of right upper extremity CT THORACIC SPINE WO CONTRAST Schedule Routine, Read Routine (OP Routine) 11/05/2024 5:26 PM CDT Myelopathy (HCC) Pain of right upper extremity from Last 3 Months Results * EMG/NCV (12/06/2024 2:20 PM CDT) Anatomical Region Laterality Modality Other Narrative 12/06/2024 2:20 PM CDT Zee Salcedo MD PhD 12/06/2024 2:26 PM EMG/NCV - Date/Time: 12/06/2024 2:20 PM Performed by: Zee Salcedo MD PhD Authorized by: Alicia Ding NP us Alicia Ding NP NEUROLOGY ORDERABLES Fi nal Result * CT Thoracic Spine WO Contrast (11/05/2024 5:26 PM CDT) Anatomical Region Laterality Modality Spine N/A Computed Tomogra phy 11/14/2024 3:12 PM CDT Narrative 11/14/2024 9:02 PM CDT EXAM DESCRIPTION: CT THORACIC SPINE WO CONTRAST REASON FOR STUDY: Myelopathy, Right arm pain Right sided pain since surgery in 2022 TECHNIQUE: Axial images acquired through the thoracic spine without intravenous contrast. Volume rendered 3D images were obtained on a dedicated workstation. Images reviewed with lung, soft tissue and bone windows. Reconstructed coronal and sagittal MPR images reviewed. Images stored on PACS. Automated exposure control was used as a dose optimization technique for this examination. COMPARISON: Thoracic spine MRI dated 10/03/2024 01/14/2023. FINDINGS: ALIGNMENT: The anterior-posterior alignment is maintained. VERTEBRAE: A few scattered Schmorl's nodes in the thoracic spine are again seen. Non operative level endplate degenerative changes and marginal spur formation, most noticeable at T9-T10. DISC HEIGHT: Multilevel intervertebral disc height loss. HARDWARE: The I25-pyasaj posterior instrumentation with bilateral vertical rods and transpedicular screws are again seen. THORACIC DISCS T1-T12: Suboptimally assessed by non myelographic CT technique. No high-grade osseous spinal canal or neural foraminal narrowing. SOFT TISSUES: Imaged lung parenchyma without a focal pneumonic consolidation. LOWER CERVICAL: Incompletely imaged. Lower cervical spine postoperative changes, better assessed on the recent cervical spine CT dated 10/03/2024. UPPER LUMBAR: Incompletely imaged. Posterior instrumentation as noted above. Laminectomy at T12-L1 and L1-L2. IMPRESSION: 1. The R87-bddakh posterior instrumentation as seen on the recent thoracic spine MRI dated 10/03/2024. 2. Non operative level degenerative changes are also similar. No gross osseous spinal canal stenosis. THIS IS AN ELECTRONICALLY VERIFIED FINAL REPORT 11/14/2024 9:02 PM - Electronically signed by Brad PhanO. AP: AP Report ID: [id number] Reading Location: [place] [address] Procedure Note Brad Schreiber DO - 11/14/2024 EXAM DESCRIPTION: CT THORACIC SPINE WO CONTRAST REASON FOR STUDY: Myelopathy, Right arm pain Right sided pain since surgery in 2022 TECHNIQUE: Axial images acquired through the thoracic spine without intravenous contrast. Volume rendered 3D images were obtained on [employer] workstation. Images reviewed with lung, soft tissue and bone windows. Reconstructed coronal and sagittal MPR images reviewed. Images stored on PACS. Automated exposure control was used as a dose optimization techniquefor this examination. COMPARISON: Thoracic spine MRI dated 10/03/2024 01/14/2023. FINDINGS: ALIGNMENT: The anterior-posterior alignment is maintained. VERTEBRAE: A few scattered Schmorl's nodes in the thoracic spine areagain seen. Non operative level endplate degenerative changes and marginal spur formation, most noticeable at T9-T10. DISC HEIGHT: Multilevel intervertebral disc height loss. HARDWARE: The I31-cwotbu posterior instrumentation with bilateralvertical rods and transpedicular screws are again seen. THORACIC DISCS T1-T12: Suboptimally assessed by non myelographic CT technique. No high-grade osseous spinal canal or neural foraminalnarrowing. SOFT TISSUES: Imaged lung parenchyma without a focal pneumonic consolidation. LOWER CERVICAL: Incompletely imaged. Lower cervical spine postoperative changes, better assessed on the recent cervical spine CT dated 10/03/2024. UPPER LUMBAR: Incompletely imaged. Posterior instrumentation as noted above. Laminectomy at T12-L1 and L1-L2. IMPRESSION: 1. The V79-hwbhvb posterior instrumentation as seen on the recentthoracic spine MRI dated 10/03/2024. 2. Non operative level degenerative changes are also similar. No gross osseous spinal canal stenosis. THIS IS AN ELECTRONICALLY VERIFIED FINAL REPORT 11/14/2024 9:02 PM - Electronically signed by Brad Schreiber D.O. AP: AP Report ID: [id number] Reading Location: [place] [address] Alicia Ding MOLD FILLER IMG CT PROCEDURES Final Result from Last 3 Months Insurance [facility] AETNA MEDICARE GOLD [facility] BLUE [employer] OOS Member Subscriber Plan / Payer (Ef fective 2024-Present) Name:Zee Mario Relation to Subscriber:Self Name:Zee Mario Payer ID:[id number] (NAIC) Type:Aviacode Address: [facility] [address] [address] G[address] Care Teams Manager Marketing Relationship Specialty Start Date End Date Juvenal Yang MD PCP - General Family Practice 12/18/21
--- OUTSIDE RECORDS SUMMARY | 2025-01-05 08:51 | XMS_ITS | Clinical Summary ---
Author Organization [facility] Address [address] [place] [address] Care Team Providers Care Custodial Maintenance Worker Name Role Phone Juvenal Yang MD Primary Care Provider [phone] Source Comments [facility],non-owned Affiliates and Associated Physician Practices is amultiple site organization consisting of ambulatory clinics and hospital sitesin [place], [place], [place] and [place]. This disclosure is being madepursuant to the Care Everywhere program and may not contain all information available regarding this patient. Last updated 18.[facility] Allergies Active Allergy Reactions Criticality Noted Date [...] capsule by mouth daily before breakfast Active vitamin D, ergocalciferol, (Drisdol) 1.25 MG (06968 UT) capsule Take 1 (one) capsule by mouth every 30 days 01/21/20 22 Active azelastine (Astelin) 0.1 % nasal spray [place] 1 (one) spray into the nose 2 times daily 12/25/19 22 Active tadalafil (Cialis) 20 MG tablet TAKE 1 TABLET BY MOUTH ONCE DAILY NEEDED FOR SEXUAL ACTIVITY ADMINISTER APPROXIAMETLY 30 MINUTES BEFORE SEXUAL ACTIVITY. DO NOT USE MORE THAN 1 DOSE PER 24 HOURS 09/23/19 22 Active ALBUTEROL SULFATE IN Inhale by mouth as needed Active testosterone cypionate (Depo-Testoster one) 200 MG/ML injection INJECT 1 ML (CC) INTRAMUSCULARLY EVERY TWO WEEKS 11/03/19 22 Active fluticasone diskus (Flovent Diskus) 50 MCG/ACT inhaler Inhale 1 (one) puff by mouth 2 times daily Active ALPRAZolam (Xanax) 2 MG tablet Take 1 (one) tablet by mouth 2 times daily as needed 08/02/19 24 Active tiZANidine (Zanaflex) 4 MG tablet Take 1 (one) tablet by mouth at bedtime 09/01/19 24 Active metoprolol succinate XL 24hr (Toprol XL) 25 MG tablet Take 1 (one) tablet by mouth once daily 10/28/19 24 Active B-D 3CC LUER-AMARILIS SYR 23GX1 23G X 1 3 ML MISC USE ONE SYRINGE TO INJECT TESTOSTERONE INTRAMUSCULARLY EVERY 2 WEEKS 12/11/19 24 Active amLODIPine (Norvasc) 5 MG tablet Take 1 (one) tablet by mouth once daily Activ e ondansetron, disintegrating, (Zofran ODT) 4 MG tabletIndicatio ns:Post concussive syndrome,Migrai ne with aura and without status migrainosus, not intractable TAKE 1 TABLET BY MOUTH ONCE DAILY NEEDED FOR NAUSEA/VOMITING ALLOW TO DISSOLVE ON THE TONGUE 10 tablet 1 06/28/19 25 Active doxepin (SINEquan) 25 MG capsule Take 1 (one) capsule by mouth at bedtime Active fremanezumab-vf rm (Ajovy) 225 MG/1.5ML injectionIndica tions:Migraine with aura and without status migrainosus, not intractable,Chr onic migraine w/o aura w/o status migrainosus, not intractable,Int ractable chronic migraine without aura and without status migrainosus,Chr onic daily headache,Post concussive syndrome Inject 1.5 mL subcutaneously every 30 days 1.5 mL 6 09/25/19 25 Active rimegepant (Nurtec) 75 MG tabletIndicatio ns:Migraine with aura and without status migrainosus, not intractable,Chr onic migraine w/o aura w/o status migrainosus, not intractable,Int ractable chronic migraine without aura and without status migrainosus,Chr onic daily headache,Post concussive syndrome Take 75 mg by mouth once daily as needed for Migraine 8 tablet 5 09/25/19 25 Active Active Problems Problem Noted Date [...] Encounters Date Type Department Care Team Description 10/10/2024 11:00 AM CDT Procedure visit [facility] - Neurology [facility] [place] [phone] Nahomy Munroe N, DO Chronic migraine w/o aura w/o status migrainosus, not intractable 10/10/2024 Travel from Last 3 Months Immunizations Immunization Administration [...] PM CDT Legal Sex Male 7:07 PM NETWORK CONTROL TECHNICIAN Gender Identity Male 01/04/2022 1:38 PM CDT Sexual Orientation Straight 01/04/2022 1: 38 PM CDT Last Filed Vital Signs Vital Sign Reading Time Taken Comments Blood Pressure 151/80 10/10/2024 10:53 AM CDT Pulse 71 10/10/2024 10:53 AM CDT Temperature 36 C (96.8 F) 09/29/2023 1:07 PM CDT Respiratory Rate 18 06/22/2023 6:29 PM NETWORK CONTROL TECHNICIAN Oxygen Saturation 99% 10/10/2024 10:53 AM CDT Inhaled Oxygen Concentration - - Weight 91.9 kg (202 lb 8 oz) 10/10/2024 10:53 AM CDT Height 177.8 cm (5' 10) 10/10/2024 10:53 AM CDT Body Mass Index 29.06 10/10/2024 10:53 AM CDT Plan of Treatment Upcoming Encounters Date Type Department Care Team (Late st Contact Info) Description 01/17/2025 4:00 PM CDT Procedure visit [facility] - Neurology [address] [facility], [place] [phone] Doreen Schreiber, ADMITTING MANAGER-COM WRITER [facility] [place] [phone] Health Maintenance Due Date Last Done Comments [...] season) 2024 06/21/2023, 06/10/2020, 05/13/2020 INFLUENZA VACCINE (#1) 2025 6, 02/17/2016, 03/20/2015, Additional history exists SCREENING FOR DIABETES 06/22/2026 4, 01/06/2022, 01/06/2022, Additional history exists ZOSTER VACCINE (1 of 2) 2026 DTAP/TDAP/TD [...] COMPREHENSIVE METABOLIC PANEL STAT 06/22/2023 2:18 PM NETWORK CONTROL TECHNICIAN from Last 3 Months or Most Recently Relevant to Health Maintenance Results * (ABNORMAL) COMPREHENSIVE METABOLIC PANEL (06/22/2023 2:18 PM [facility]) [facility] Glucose 99 70 - 105 mg/dL 06/22/2023 2:44 PM [facility] Sodium 141 136 - 145 mmol/L 06/22/2023 2:44 PM [facility] Potassium 4.3 3.5 - 5.1 mmol/L 06/22/2023 2:44 PM [facility] Chloride 109(H) 98 - 107 mmol/L 06/22/2023 2:44 PM [facility] CO2 25 22 - 29 mmol/L 06/22/2023 2:44 PM [facility] Calcium 8.5 8.4 - 10.4 mg/dL 06/22/2023 2:44 PM [facility] Anion Gap 7 6 - 16 mmol/L 06/22/2023 2:44 PM [facility] BUN 13 5.3 - 18.7 mg/dL 06/22/2023 2:44 PM [facility] Creatinine 1.26(H) 0.72 - 1.25 mg/dL 06/22/2023 2:44 PM [facility] Alkaline Phosphatase 45 40 - 150 U/L 06/22/2023 2:44 PM [facility] ALT 6 0 - 55 U/L 06/22/2023 2:44 PM [facility] AST 11 5 - 34 U/L 06/22/2023 2:44 PM [facility] Protein Total 6.8 6.4 - 8.3 gm/dL 06/22/2023 2:44 PM [facility] Albumin 4.0 3.4 - 5.0 gm/dL 06/22/2023 2:44 PM [facility] Bilirubin Total 0.7 0.2 - 1.2 mg/dL 06/22/2023 2:44 PM [facility] eGFR by CKD-EPI 71(L) >=90 mL/min/1.7 3 m2 06/22/2023 2:44 PM [facility] Blood BLOOD SPECIMEN / Unknown Venipuncture / Unknown 06/22/2023 2:18 PM NETWORK CONTROL TECHNICIAN 06/22/2023 2:26 PM NETWORK CONTROL TECHNICIAN [facility] - CHEMISTRY ORDERABLES Final Result [facility] [address] [id number] from Last 3 Months or Most Recently Relevant to Health Maintenance Insurance [employer] AET[employer] Care Teams Custodial Maintenance Worker Relationship Specialty Start Date End Date Juvenal Yang MD [address] [place] [address] [place] [id number] PCP - General 01/04/22
[2025-01-05 09:35] LABS: Hematocrit 47.2 % (42.0-52.0); Hemoglobin 15.9 g/dL (14.0-18.0); Immature Granulocyte Percent A 0.9 % (0-0.5); Lymphocytes Absolute Auto 3.02 K/mm3 (0.9-3.2); Mean Corpuscular HGB Conc 33.7 g/dl (32-36); Mean Corpuscular Hemoglobin 29.1 pg (26-34); Mean Corpuscular Volume 86.4 fl (80-100); Nucleated Red Blood Cells Absolute Auto 0.000 K/mm3 (0.0-0.012); Nucleated Red Blood Cells Perc 0.0 % (0.0-0.2); Platelet Count Result 178 k/mm3 (150-375); Red Blood Count 5.46 M/mm3 (4.6-6.20); White Blood Count 8.7 K/mm3 (4.5-10.0)
[2025-01-05 09:57] LABS: Alanine Aminotransferase 14 U/L (6-50); Albumin Level 4.2 g/dL (3.5-5.1); Alkaline Phosphatase 39 U/L (38-126); Anion Gap 5 mmol/L (4-12); Aspartate Amino Transferase 25 U/L (17-59); Bilirubin,Total 0.8 mg/dL (0.2-1.3); Blood Urea Nitrogen 24 mg/dL (9-20); Calcium 8.9 mg/dL (8.4-10.2); Carbon Dioxide 27 mmol/L (22-30); Chloride 104 mmol/L (98-107); Estimated Glomerular Filt Rate > 60; Glucose 94 mg/dL (65-110); Potassium 4.7 mmol/L (3.4-5.0); Sodium 136 mmol/L (137-145); Total Protein 7.0 g/dL (6.3-8.2)
[2025-01-05 10:11] LABS: Free T4 Free Thyroxine 0.77 ng/dL (0.78-2.19)
[2025-01-05 10:27] LABS: Thyroid Stimulating Hormone 2.860 uIU/mL (0.465-4.680)
== END 2025-01-05 08:45 | disposition home or self-care (01) ==
LOC: ANHLAB 08:49
PROVIDERS: PCP Family Medicine; Visit Provider Family Medicine
DX: F32.9 Major depressive disorder, single episode, unspecified (principal); F41.9 Anxiety disorder, unspecified; I10 Essential (primary) hypertension; E03.9 Hypothyroidism, unspecified; K21.9 Gastro-esophageal reflux disease without esophagitis; D64.9 Anemia, unspecified; J45.909 Unspecified asthma, uncomplicated; R79.89 Other specified abnormal findings of blood chemistry
CPT/HCPCS: 36415; 80053; 84439; 84443; 85025

== ENCOUNTER → 2025-04-29 08:08 | Outpatient (CLI) | payer OTHER, MEDICARE, SELFPAY ==
--- NOTE | 2025-05-27 09:03 | P.SLEEP_ITS ---
Sleep Study Date of Study: 04/29/25 Ordering Provider: Maulik Anderson DO Interpreting Physician: Michell Piper DO Sleep Study Type: Split Polysomnogram Height: 1.78 m Weight: 90.718 kg Body Mass Index: 28.7 Neck Circumference (inches): 18 [place]: 15 Reason for Sleep Study Excessive daytime sleepiness Sleep History The patient is a 49-year-old male that had a sleep study ordered by his plant guide for evaluation of sleep apnea. The patient was previously diagnosed with sleep apnea and uses CPAP. He frequently awakens from sleep short of breath. He occasionally awakens at night with heartburn, belching or cough. He constantly snores loudly enough that others complain. He frequently has trouble sleeping when he has a cold. He occasionally wakes up gasping for air throughout the night. He constantly has breathing problems at night observed by himself or others. He frequently sweats excessively at night. He frequently has heart palpitations or irregular heartbeats during the night. He frequently falls asleep during the day but rarely while driving. He constantly experiences loss of muscle tone when extremely emotional. He frequently has trouble at school or work due to sleepiness. He occasionally feels unable to move while waking up or falling asleep. He constantly experiences vivid dreamlike scenes upon awakening or falling asleep. He frequently feels afraid of going to sleep. He occasionally has nightmares. He frequently remembers his dreams. He constantly has thoughts racing through his mind. He constantly feels sad, depressed and anxious. He constantly has muscular tension. He constantly notices parts of his body jerk. He constantly kicks during the night. He constantly has crawling and aching feelings in his legs and constantly has leg pain during the night. He rarely grinds his teeth during sleep but occasionally awakens with morning jaw pain. He is constantly bothered by pain during the day and constantly awakened by pain during the night. He constantly wakes up feeling stiff in the morning. He constantly wakes up with sore or achy muscles. He constantly wakes up with pain in the neck, spine and other joints. It takes him 1 hour at minimum to fall asleep. He wakes up 4-5 times throughout the night to urinate or for other unknown reasons. He is able to fall back asleep within 10 minutes. He typically gets 36 hours of sleep per night. He will stay in bed for 15 minutes after waking up in the morning. He currently lives alone. He has a rotating shift schedule at work. He denies consuming any caffeinated beverages within 2 hours of bedtime. He denies engaging in physical exercise before bedtime. He denies reading before falling asleep. He will occasionally watch television before falling asleep. He denies taking naps in afternoon or the evening. He consumes 1 cup of caffeinated beverage per day. He denies tobacco, alcohol and recreational drug use. [facility] Past Medical History Medical History Encounter for administration of vaccine Bilateral hand pain Degenerative joint disease of cervical and lumbar spine Dysphagia GERD (gastroesophageal reflux disease) History of anal fissures Hypertension Anxiety Depression Headache, migraine Asthma Allergies Cervical vertebral fusion Surgical History Surgical History History of back surgery History of lumbar fusion Family History Family History Mother Depression Family history of migraine headaches Asthma Family history of chronic obstructive pulmonary disease Grandparent Cerebrovascular accident Grandparent Lung disease Grandparent Dementia Alzheimer disease Grandparent Dementia Other Hypertension Social History Social History Smoking status: Never smoker Second hand tobacco smoke exposure: No Alcohol intake: former Drinks per week: 3 Alcohol use details: none past year Substance use: former Substance use type: marijuana Other substance usage details: medical card Last use: edible 2 nights Lack of Transportation: YES Lack of Food: Sometimes True Current Housing: I Do Not Have Housing Concerned About Future Housing: No Difficulty Paying Gas/Electric Bills: Decline to Answer Difficulty Paying for Meds: YES Currently Unemployed: Decline to Answer Education: Associate Degree Difficulty w/ Childcare or Family Care: Decline to Answer Living arrangements: alone Spiritual care concerns: No Medications Home Medications ?Medication ?Instructions ?Recorded ?Confirmed ?Type meclizine 25 mg tablet 25 mg PO BID PRN dizziness # 30 tabs 08/04/21 03/18/25 Rx rimegepant 75 mg disintegrating 75 mg PO EVERY OTHER D AY 07/01/22 03/18/25 History tablet (Nurtec ODT) hydrocortisone 2.5 % topical cream 1 applic topical BI D PRN hemmoroid 09/06/22 03/18/25 Rx #30 grams mecobalamin (vitamin B12) 1,000 1,000 mcg sublingual D AILY #90 tabs 12/21/22 03/18/25 Rx mcg disintegrating tablet,sublingual albuterol sulfate 90 mcg/actuation 1 inh inhalation Q4 H PRN 09/08/23 03/18/25 Rx aerosol inhaler bronchospasm #18 grams botox injections .Route 12/19/23 03/18/25 His tory loratadine 10 mg tablet 10 mg PO DAILY 12/19/2308/07 History ondansetron 4 mg disintegrating mg PO PRN 03/28/2408/07 History tablet tadalafil 20 mg tablet (Cialis) 20 mg PO DAILY PRN sex ual activity 04/10/24 03/18/25 Rx #30 tabs metoprolol succinate 50 mg See Rx Instructions .Route 12/20/24 03/18/25 Rx tablet,extended release 24 hr .COMPLEX #90 tabs syringe with needle 3 mL 23 x 1 #4 ea 12/31/24 Rx (BD Eclipse Luer-Alexandr) prednisone 20 mg tablet See Rx Instructions .Route 0 02/11/25 03/18/25 Rx .COMPLEX #5 tabs omeprazole 20 mg capsule,delayed 40 mg (2 x 20 mg) PO DAILY #180 02/14/25 03/18/25 Rx release caps thyroid (pork) 15 mg tablet See Rx Instructions .Route 02/25/25 03/18/25 Rx .COMPLEX #90 tabs doxycycline hyclate 100 mg capsule 100 mg PO DAILY #20 caps 03/05/25 03/18/25 Rx losartan 100 mg tablet 100 mg PO DAILY #30 tabs 03/18/25 Rx fluticasone propionate 50 2 spray intranasal DAILY #48 grams 03/28/25 Rx mcg/actuation nasal spray,suspension (Children's Flonase Allergy Relief) doxepin 50 mg capsule See Rx Instructions .Route 1 06/05/24 Rx .COMPLEX #90 caps ergocalciferol (vitamin D2) 1,250 50,000 unit PO MONTH LY #7 caps 04/19/25 Rx mcg (50,000 unit) capsule alprazolam 2 mg tablet 2 mg PO BID PRN anxiety #60 tabs 04/30/25 Rx prednisone 20 mg tablet 20 mg PO DAILY #5 tabs 05/10 Rx testosterone cypionate 200 mg/mL 200 mg IM . every 2 w eeks #10 mL 05/13/25 Rx intramuscular oil tizanidine 4 mg tablet 4 mg PO QHS #90 tabs 5 Rx Sleep Procedure A full night split study using the [employer] multi-channel system recorded the standard physiologic parameters including EEG, EOG, submentalis EMG, anterior tibialis EMG, EKG, body position, nasal and oral airflow using nasal pressure sensor and thermistor.? Respiratory parameters of chest and abdominal movements were recorded with Respiratory Inductance Plethysmography belts. Oxygen saturation was recorded by pulse oximetry. Video monitoring was also performed. Sleep stages, periodic limb movements, and EEG arousals were scored in 30 second epochs according to the criteria of the AASM Scoring Manual. The Apnea-Hypopnea Index was calculated using CMS guidelines for definition of hypopnea with 4% O2 desaturations while scoring respiratory events. Sleep Architecture During the diagnostic portion of the study, the total recording time was 225.4 minutes. The total sleep time was 186.0 minutes. Sleep latency was 11.4 minutes.? REM latency was 151.0 minutes. Sleep Efficiency was 82.5%. The patient had 23 awakenings for an awakening index of 7.4. Wake after sleep onset time was 28.0 minutes. The patient spent 48.5 minutes, 26.1% of total sleep time in Stage N1. The patient spent 115.0 minutes, 61.8% in Stage N2. The patient spent 0.0 minutes, 0.0% in Stage N3. The patient spent 22.5 minutes, 12.1% in Stage REM sleep. At 02:41:23 AM the patient was placed on PAP treatment and was titrated at pressures ranging from 4 cm H20 up to 11 cm H20. During the treatment portion of the study, the total recording time was 191.8 minutes.? The total sleep time was 176.5 minutes. Sleep latency was 7.0 minutes. REM latency was 84.5 minutes. Sleep Efficiency was 92.0%. Wake after Sleep Onset time was 8.5 minutes. The patient spent 14.0 minutes, 7.9% of total sleep time in Stage N1. The patient spent 151.0 minutes, 85.6% in Stage N2. The patient spent 0.0 minutes, 0.0% in Stage N3. The patient spent 11.5 minutes, 6.5% in Stage REM. Respiratory Analysis During the diagnostic portion of the study, the patient had 43 hypopneas and 1 obstructive apnea for an overall Apnea Hypopnea Index of 14.2 events per hour. The REM Apnea Hypopnea Index was 32.0. The NREM Apnea Hypopnea Index was 13.6. The patient had a Central Apnea Hypopnea Index of 0. There was no evidence of David-Quinonez Respirations. During the treatment portion of the study, the patient had 34 hypopneas and 1 obstructive apnea for an overall Apnea Hypopnea Index of 11.9 events per hour. The REM Apnea Hypopnea Index was 5.2. The NREM Apnea Hypopnea Index was 12.4. The patient had a Central Apnea Hypopnea Index of 0. There was no evidence of David-Quinonez Respirations. The patient was started on CPAP 4 cm H2O and titrated to CPAP 11 cm H2O due to hypopneas. The patient was able to fall asleep starting on CPAP 4 cm H2O. The patient was able to achieve REM sleep starting on CPAP 6 cm H2O. On CPAP 8 cm H2O, the patient spent 16.5 minutes in NREM with 1 obstructive apnea, resulting in an AHI of 3.6. On CPAP 9 cm H2O, the patient spent 9.5 minutes in NREM with no respiratory events, resulting in an AHI of 0. The patient had a sleep efficiency of 100% on both 8 cm H2O and 9 cm H2O. Arousals During the diagnostic portion of the study, there were a total of 150 arousals for an arousal index of 48.4.? There were 26 respiratory arousals for an index of 8.4. There were 6 periodic limb movement arousals for an index of 1.9.? There were 5 isolated limb movement arousals for an index of 1.6. There were 113 spontaneous arousals for an index of 36.5. During the treatment portion of the study, there were a total of 70 arousals for an index of 23.8.? There were 4 respiratory arousals for an index of 1.4. There was 1 periodic limb movement arousal for an index of 0.3.? There were 6 isolated limb movement arousals for an index of 2.0. There were 59 spontaneous arousals for an index of 20.1. Periodic Limb Movements During the diagnostic portion of the study, the patient had 20 isolated limb movements with an index of 6.5. The patient had 24 periodic limb movements with an index of 7.7. The patient had a total of 44 limb movements with a total limb movement index of 14.2. During the treatment portion of the study, the patient had 17 isolated limb movements with an index of 5.8. The patient had 19 periodic limb movements with an index of 6.5. The patient had a total of 36 limb movements with a total limb movement index of 12.2. Oximetry Data During the diagnostic portion of the study, the patient had an average oxygen saturation of 93.7% in wake with a minimum oxygen saturation of 88% and a maximum oxygen saturation of 98%. The patient had an average oxygen saturation of 93.3% in sleep with a minimum oxygen saturation of 88.0% and a maximum oxygen saturation of 98.0%. The patient had 78 oxygen desaturations resulting in an Oxygen Desaturation Index of 25.2. The patient spent 0.1 minutes of total sleep time with an oxygen saturation less than 88%. During the treatment portion of the study, the patient had an average oxygen saturation of 94.3% in wake with a minimum oxygen saturation of 92.0% and a maximum oxygen saturation of 98.0%. The patient had an average oxygen saturation of 94.2% in sleep with a minimum oxygen saturation of 89.0% and a maximum oxygen saturation of 98.0%. The patient had 49 oxygen desaturations resulting in an Oxygen Desaturation Index of 16.7. The patient spent 0 minutes of total sleep time with an oxygen saturation less than 88%. Snoring Profile Moderate snoring was present in the baseline portion of the study. The snoring resolved once the patient was titrated to CPAP 8 cm H2O. Cardiac Profile The EKG lead showed normal sinus rhythm. No arrhythmias or premature beats were seen. During the diagnostic portion of the study, the average pulse rate was 64.8 bpm.? The minimum pulse rate was 58.0 bpm. The maximum pulse rate was 82.0 bpm. During the treatment portion of the study, the average pulse rate was 63.3 bpm.? The minimum pulse rate was 56.0 bpm. The maximum pulse rate was 78.0 bpm. EEG Profile No signs of seizure activity seen. Assessment and Plan Assessment and Plan (1) CESAR (obstructive sleep apnea): Code(s): G47.33 - Obstructive sleep apnea (adult) (pediatric) Status: Acute Assessment and Plan: In the baseline portion of the study, the patient had an overall AHI of 14.2 with desaturation down to 88%. This is consistent with mild sleep apnea. Due to the patient's hypertension, he qualifies for treatment. The patient was started on CPAP 4 cm H2O and titrated to CPAP 11 cm H2O due to hypopneas. I recommend that the patient be prescribed CPAP 9 cm H2O, size medium F&P Solo nasal pillow mask, CPAP filters/heated tubing and heated humidity. This should be used with all episodes of sleep.? Compliance should be reviewed within 31-90 days of starting therapy for usage greater than 4 hours per night greater than 70% of the nights. The patient should be asked about symptoms such as?excessive daytime sleepiness, quality of sleep, decreased nocturia, increased?mental functioning such as memory, mood, and concentration. The patient's sleep history is highly suggestive of Restless Leg Syndrome. I recommend that the patient have a serum ferritin drawn for evaluation of iron deficiency anemia. If the patient has a serum ferritin less than 75 ng/mL, I recommend starting a daily iron supplement and a Vitamin C supplement for better absorption. If the serum ferritin is greater than 75 ng/mL, I recommend starting a dopamine agonist and titrating the dose until symptoms resolve. There are nonpharmacological methods to treat limb movements including daily exercise, stretching calf muscles before bed, avoiding excessive amounts of caffeine and alcohol, vitamin B supplementation, magnesium lotion massaged into legs before bed, and use of a weighted blanket. Data The data obtained during this sleep study is adequate for interpretation. Certification This sleep study has been reviewed by a board certified sleep medicine physician.
[2025-05-29 12:42] VITALS: BMI 28.7
== END ==
PROVIDERS: PCP Family Medicine; Visit Provider Internal Medicine Cardiovascular Disease
DX: G47.33 Obstructive sleep apnea (adult) (pediatric) (principal); G47.10 Hypersomnia, unspecified; I10 Essential (primary) hypertension; F39 Unspecified mood [affective] disorder
CPT/HCPCS: 95811